=== PATIENT | male | born 1965 | race Caucasian/White ===

== ENCOUNTER 2020-04-08 11:21 | Outpatient (REF) | payer OTHER, SELFPAY ==
[2020-04-08 12:53] LABS: Blood Urea Nitrogen 17 mg/dL (9-16); Estimated Glomerular Filt Rate > 60
== END 2020-04-08 11:22 | disposition home or self-care (01) ==
LOC: HO.LAB 11:21
PROVIDERS: PCP Psychiatry & Neurology Neurology; Visit Provider Psychiatry & Neurology Neurology
DX: G40.209 Localization-related (focal) (partial) symptomatic epilepsy and epileptic syndromes with complex partial seizures, not intractable, without status epilepticus (principal)
CPT/HCPCS: 82565; 84520

== ENCOUNTER 2020-04-23 14:19 | Outpatient (REF) | payer OTHER, SELFPAY ==
--- NOTE | 2020-04-23 14:24 | CT_ITS ---
EXAMINATION: CT ANGIOGRAM BRAIN, HEAD CLINICAL INFORMATION: Partial seizure disorder. COMPARISON: Brain MRI 07/02/2019. TECHNIQUE: Test bolus sequences followed by intravenous administration 75 mL of Omnipaque 350 intravenous contrast. Helical imaging was performed in the axial plane from the skull base to the vertex. Delayed postcontrast imaging of the head was also performed. The data was processed at the production technologist workstation for generation of MIP sequences. Three-dimensional volume rendered reformatted images were also generated at an offline 3-D workstation. This CT examination was performed using dose optimization techniques as appropriate, variously including the following: *Automated exposure control *Adjustment of mA and/or kV according to patient size (this includes techniques or standardized protocols for targeted exams where dose is matched to indication/reason for exam; i.e. extremities or head) *Use of iterative reconstruction technique DLP: 2262 mGy-cm FINDINGS: There are scattered nonspecific foci of hypoattenuation throughout the periventricular white matter that coincide with the findings demonstrated on the brain MRI from 07/02/2019. Romo-white matter differentiation is otherwise preserved and there is no evidence of acute territorial infarct. There is no acute intracranial hemorrhage. Postcontrast images reveal no abnormal mass or enhancement within the intracranial compartment. No abnormal extra-axial collection. No intracranial mass effect or midline shift. Lateral and third ventricles are normal. No hydrocephalus. The calvarium and skull base are intact. Mastoid air cells and middle ear cavities are well aerated. There are a few small retention cysts within the alveolar recess of left maxillary sinus. Otherwise no active paranasal sinus disease. Globes and orbits are symmetric. Intracranial internal carotid arteries are patent. Intradural vertebral artery segments and basilar artery are patent. Anterior, middle, and posterior cerebral artery complexes are normal. No high-grade stenosis or proximal occlusion is visualized within the intracranial vessels. No early venous enhancement is demonstrated to suggest the presence of arteriovenous shunting. No evidence of aneurysm or high flow vascular malformation. CT/CT angio head IMPRESSION: Unremarkable examination. Specifically no high-grade stenosis or proximal occlusion is visualized within the intracranial vessels. No evidence of aneurysm or high flow vascular malformation. There are scattered nonspecific findings within the supratentorial white matter that coincide with the prominent perivascular spaces demonstrated on the brain MRI from 07/02/2019.
[2020-04-23] MEDS: iohexoL 350 MG/ML 100 ML INFUS..BTL IV (15:13)
== END 2020-04-23 14:20 | disposition home or self-care (01) ==
LOC: HO.CT 14:19
PROVIDERS: PCP Nurse Practitioner Adult Health; Visit Provider Psychiatry & Neurology Neurology
DX: G40.209 Localization-related (focal) (partial) symptomatic epilepsy and epileptic syndromes with complex partial seizures, not intractable, without status epilepticus (principal)
CPT/HCPCS: 70496; Q9967

== ENCOUNTER 2023-10-03 08:32 | Outpatient (AMB) | payer OTHER, SELFPAY ==
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
[2023-10-03 09:06] VITALS: BP 134/82; PULSE 76; O2SAT 96; BMI 28.2
== END 2023-10-03 10:48 | disposition home or self-care (01) ==
PROVIDERS: PCP Nurse Practitioner Adult Health; Visit Provider Nurse Practitioner Family
DX: G40.A09 Absence epileptic syndrome, not intractable, without status epilepticus (principal); R90.82 White matter disease, unspecified; R41.3 Other amnesia; G47.33 Obstructive sleep apnea (adult) (pediatric); Z96.82 Presence of neurostimulator
CPT/HCPCS: 99204

== ENCOUNTER → 2023-10-03 08:32 | Outpatient (BNVA) | payer OTHER, SELFPAY | PROVIDERS: PCP Nurse Practitioner Adult Health; Visit Provider Nurse Practitioner Family | DX: G40.A09 Absence epileptic syndrome, not intractable, without status epilepticus (principal); R90.82 White matter disease, unspecified; R41.3 Other amnesia; G47.33 Obstructive sleep apnea (adult) (pediatric); Z79.899 Other long term (current) drug therapy; Z96.82 Presence of neurostimulator | CPT/HCPCS: 99202 ==

== ENCOUNTER 2023-11-23 12:34 | Outpatient (REF) | payer OTHER, SELFPAY ==
--- NOTE | 2023-11-23 13:05 | EEG_ITS ---
This is a 16-channel EEG with an EKG lead. The patient is reported awake during the tracing. Background EEG rhythm is 8 to 10 hertz, 5 to 20 microvolt posteriorly and lower amplitude fast anteriorly. The patient transitioned in and out of drowsiness. Photic stimulation does not produce any significant driving. Hyperventilation is not performed. Cardiac lead does not reveal any significant abnormality. No sharp wave spikes or paroxysmal tendency noted. IMPRESSION: No significant abnormality noted on this EEG. MD EL Lloyd/RUBEN / [id number]
== END 2023-11-23 12:35 | disposition home or self-care (01) ==
LOC: HO.NEURO 12:34
PROVIDERS: PCP Internal Medicine; Visit Provider Nurse Practitioner Family
DX: G40.A09 Absence epileptic syndrome, not intractable, without status epilepticus (principal)
CPT/HCPCS: 95816

== ENCOUNTER 2023-12-01 09:22 | Outpatient (REF) | payer OTHER, SELFPAY ==
--- NOTE | ~2023-12-01 | MR_ITS ---
EXAMINATION: MR BRAIN WITHOUT CONTRAST CLINICAL INFORMATION: Absence epileptic syndrome COMPARISON: CT head from 04/23/2020. Brain MRI from 07/02/2019. TECHNIQUE: MRI of the brain was obtained using routine sequences without contrast. FINDINGS: No focal restricted diffusion is demonstrated to suggest acute or subacute cerebral ischemia. No evidence of acute or chronic hemorrhagic products on heme-sensitive imaging. Similar to prior exam, there extensive prominent perivascular spaces throughout the deep white matter of the bilateral cerebral hemispheres with moderate surrounding T2 FLAIR hyperintensity. Additional scattered periventricular, deep white matter, and brainstem T2 FLAIR hyperintensities most commonly seen with [id number] underlying microangiopathy. Proportional prominence of the ventricles and sulcal spaces without evidence of obstructive hydrocephalus. No abnormal mass effect. No midline shift. The hippocampi are symmetric in size, contour, and signal intensity. The temporal horns appear symmetric. Normal appearance of the pituitary gland. Normal positioning of the cerebellar tonsils. Normal arterial and venous vascular flow voids are present. Normal, homogeneous marrow signal. Mild mucosal thickening of the paranasal sinuses. Mild rightward nasal septal deviation. No signal abnormalities within the mastoids. MR/MR head/brain wo con IMPRESSION: 1. No acute intracranial abnormalities. 2. Similar to prior exam, there are extensive prominent perivascular spaces throughout the deep white matter of the bilateral cerebral hemispheres with moderate surrounding T2 FLAIR hyperintensity. Additional scattered white matter changes most commonly seen with [id number] underlying microangiopathy. 3. No additional MRI abnormalities to explain the patient's symptoms. Electronically signed by: Andrea Quigley DO 12/22/2023 09:29 AM EDT
== END 2023-12-01 09:23 | disposition home or self-care (01) ==
LOC: HO.MRI 09:22
PROVIDERS: PCP Internal Medicine; Visit Provider Nurse Practitioner Family
DX: G40.A09 Absence epileptic syndrome, not intractable, without status epilepticus (principal); R90.82 White matter disease, unspecified; R41.3 Other amnesia
CPT/HCPCS: 70551

== ENCOUNTER 2024-02-22 07:20 | Outpatient (AMB) | payer OTHER, SELFPAY ==
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
[2024-02-22 07:31] VITALS: BP 160/100; PULSE 84; O2SAT 99; BMI 28.3
== END 2024-02-22 08:36 | disposition home or self-care (01) ==
LOC: HO.HSMS 07:20
PROVIDERS: PCP Internal Medicine; Visit Provider Nurse Practitioner Family
DX: G40.A09 Absence epileptic syndrome, not intractable, without status epilepticus (principal); G47.33 Obstructive sleep apnea (adult) (pediatric); Z96.82 Presence of neurostimulator; R20.2 Paresthesia of skin; R90.82 White matter disease, unspecified; R41.3 Other amnesia
CPT/HCPCS: 99214

== ENCOUNTER → 2024-02-22 07:20 | Outpatient (BNVA) | payer OTHER, SELFPAY | PROVIDERS: PCP Internal Medicine; Visit Provider Nurse Practitioner Family | DX: G47.33 Obstructive sleep apnea (adult) (pediatric) (principal); G40.A09 Absence epileptic syndrome, not intractable, without status epilepticus; R20.2 Paresthesia of skin; R90.82 White matter disease, unspecified; R41.3 Other amnesia; Z96.82 Presence of neurostimulator | CPT/HCPCS: 99212 ==

== ENCOUNTER 2024-04-04 13:35 | Outpatient (REF) | payer OTHER, SELFPAY ==
--- NOTE | 2024-04-04 13:38 | EMG_ITS ---
Chief complaint: Right hand worse than leg numbness. Neck pain. History of diabetes. Denies symptoms in the left side. Reason for referral: Evaluate for neuropathy Referred by: Sophy Dupont NP Procedure done: Right upper and lower extremity NCS/EMG, some comparison to left lower done Precautions and/or limitations: None The limb temperature was monitored continuously and remained between 32-36 degrees C during the performance of the NCS. Nerve Conduction Studies Anti Sensory Summary Table ?Stim Site NR Onset (ms) Norm Onset (ms) Peak (ms) Norm Peak (ms) O-P Amp (?V) Norm O-P Amp Site1 Site2 Delta-0 (ms) Dist (cm) Robert (m/s) Norm Robert (m/s) Right Median Anti Sensory (2nd Digit) Wrist ? 2.1 3.3 <3.6 4.6 >10 Wrist 2nd Digit 2.1 14.0 67 Left Sural Anti Sensory (Lat Mall) Calf ? 1.8 3.0 <4.0 4.3 >5.0 Calf Lat Mall 1.8 14.0 78 Right Sural Anti Sensory (Lat Mall) Calf ? 2.8 3.6 <4.0 4.3 >5.0 Calf Lat Mall 2.8 14.0 50 Right Ulnar Anti Sensory (5th Digit) Wrist ? 2.6 3.3 <3.7 16.5 >15.0 Wrist 5th Digit 2.6 14.0 54 Motor Summary Table ?Stim Site NR Onset (ms) Norm Onset (ms) O-P Amp (mV) Norm O-P Amp iAmp (mV) Amp (1st) (%) Site1 Site2 Delta-0 (ms) Dist (cm) Robert (m/s) Norm Robert (m/s) Right Median Motor (Abd Poll Brev) Wrist ? 4.2 <3.9 5.8 >4.5 7.0 100.0 Elbow Wrist 4.6 22.0 48 >45 Elbow ? 8.8 4.7 5.8 81.0 Right Peroneal Motor (Ext Dig Brev) Ankle ? 4.3 <4.0 2.0 >2.5 2.6 100.0 Ankle Ext Dig Brev 4.3 0.0 B Fib ? 12.6 1.4 1.8 70.0 B Fib Ankle 8.3 34.0 41 >40 Poplt ? 14.0 1.3 1.7 65.0 Poplt B Fib 1.4 6.0 43 >40 Right Tibial Motor (Abd Armenta Brev) Ankle ? 3.6 <5 12.1 >2.5 14.9 100.0 Ankle Abd Armenta Brev 3.6 0.0 Knee ? 13.9 5.8 7.1 47.9 Knee Ankle 10.3 41.0 40 >40 Run #2 (Abd Dig Minimi) Wrist ? 2.8 <3.0 6.7 >5 8.1 100.0 B Elbow Wrist 4.2 20.0 48 >45 B Elbow ? 7.0 5.7 7.0 85.1 A Elbow B Elbow 1.8 10.0 56 >45 A Elbow ? 8.8 6.8 8.3 101.5 EMG ?Side Muscle Nerve Root Ins Act Fibs Psw Amp Dur Poly Recrt Int Pat Comment Right 1stDorInt Ulnar C8-T1 Incr 1+ 1+ Nml Nml 0 Nml Complete Right FlexCarRad Median C6-7 Nml Nml Nml Nml Nml 0 Nml Complete Right Biceps Musculocut C5-6 Nml Nml Nml Nml Nml 0 Nml Complete Right Triceps Radial C6-7-8 Nml Nml Nml Nml Nml 0 Nml Complete Right Deltoid Axillary C5-6 Nml Nml Nml Nml Nml 0 Nml Complete Right AbdHallucis MedPlantar S1-2 Incr 1+ 1+ Nml Nml 0 Nml Complete Right AntTibialis Dp Br Peron L4-5 Nml Nml Nml Nml Nml 0 Nml Complete Right PostTibialis Tibial L5, S1 Nml Nml Nml Nml Nml 0 Nml Complete Right MedGastroc Tibial S1-2 Nml Nml Nml Nml Nml 0 Nml Complete Right VastusMed Femoral L2-4 Nml Nml Nml Nml Nml 0 Nml Complete Left AbdHallucis MedPlantar S1-2 Nml Nml Nml Nml Nml 0 Nml Complete Paraspinal EMG ?Side Muscle Nerve Root Ins Act Fibs Psw Comment Right Cervical Upper Rami Nml Nml Nml Right Cervical Mid Rami Nml Nml Nml Right Cervical Lower Rami Nml Nml Nml Right Lumbar Upper Rami Nml Nml Nml Right Lumbar Mid Rami Nml Nml Nml Right Lumbar Lower Rami Nml Nml Nml FINDINGS: Right peroneal nerve showed prolonged distal latency, small amplitude and normal conduction velocity. Bilateral sural nerves showed small amplitudes. Right median motor nerve showed prolonged distal latency, normal amplitude and normal conduction velocity. Right median sensory nerve showed small amplitude. All other nerves tested were within normal. Concentric needle EMG was performed in selected muscles of the right upper and bilateral lower extremities, cervical and lumbar paraspinals. Study revealed signs of electric abnormalities as shown in the table above. Right AH showed increased insertional activity, PSWs and fibrillations. Right FDI showed increased insertional activity, PSWs and fibrillations. No denervation seen on lumbar or cervical paraspinals. IMPRESSION: 1. This is an abnormal study. 2. There are electrodiagnostic findings suggestive for sensorimotor peripheral neuropathy, primarily axonal. 3. There is electrodiagnostic evidence for right moderate-severe median neuropathy at the wrist, consistent with Carpal Tunnel Syndrome. 4. There is no electrodiagnostic evidence for ulnar neuropathy, cervical radiculopathy, or lumbar radiculopathy CLINICAL COMMENT: Further clinical correlation recommended. Thank you for your kind referral. Domenica Reynolds MD, COLLIN Board Certified, [place] Board of Physical Medicine and Rehabilitation (ABPMR) Board Certified, [place] Board of Electrodiagnostic Medicine (ABEM) CODIN [id number] x 2 [phone] x 1 MTDD
--- OUTSIDE RECORDS SUMMARY | 2024-04-04 13:39 | XMS_ITS | Data Portability ---
Author Organization [place] - [facility], Allergy Address [address] [place] [id number] Assessment Encounter Date Assessment Date Assessment LastModified by Organization Details LastModified Time 02/28/2024 02/28/2024 1. Cerumen impaction, bilateral Resolved s/p cerumen removal. Normal otomicroscopic ear exam. PLAN: - Follow-up prn - Advised to abstain from qtip use 2. Prior tympanic membrane perforation Resolved and healed today. Follow-up as needed [email or web address] Not available 02/28/2024 16:24:18 Plan of Treatment Reminders Order Date Submit Date Provider Last Modified By Organization Details Last Modified Time Details Appointments None record ed. Lab None record ed. Referral None record ed. Procedures None record ed. Surgeries None record ed. Imaging None record ed. Medication Orders None record ed. Patient TargetsNo targets recorded. Patient InstructionsNo instructions recorded. Reason for Referral None Reported. Results Created Date Observation Date Name Description Value Unit Range Abnormal Flag Note LastModifiedBy Organization Detail LastModifiedTime 02/29/20 24 audio gram No observ ation record ed. BARCODE Not Available 2023 10:43:30 Result Notes None recorded. Problems Name Problem SNOMED Code Status Onset Date Resolution Date Notes Provider Name and Address Organization Details Recorded Time Obstructi ve sleep apnea syndrome 32994795 Active 2017 Obstructi ve sleep apnea (adult) (pediatri c); Note: Date Diagnosed : 8 5:11 PM (G47.33) Not Available [facility] 4 03:31:36 Body mass index 25-29 - overweigh t 149373366 Active 2018 Body mass index (BMI) 28.0-28.9 , adult; Note: Date Diagnosed : 9 3:09 PM (Z68.28) Not Available [facility] 4 03:31:36 Sensorine ural hearing loss of bilateral ears 907226189 Active 2023 TRISH EDDY [address] [facility] [place] [address], [facility] [place], [address] , [facility] - [facility] 4 15:29:39 Impacted cerumen of bilateral ears 72614285308 Active 2023 JAISON HINDS MD [address] [facility] [place] [address], [place], [address] , [facility] - [facility] 4 16:24:22 Central perforati on of left tympanic membrane 13430662847 Active 2023 JAISON HINDS MD [address] [place] [address],[place] [address], [facility] [place], [address] , [facility] - [facility] 4 16:24:35 Problem Notes None recorded. Procedures Surgical History Date Name Laterality Status Provider Name and Address Organization Details Recorded Time 02/28/20 24 Cerumen removal with microscope bilateral completed JAISON HINDS MD [address] [place] [address],[place] [address], [place], [address], [facility] 02/28/2024 16:23:57 02/28/20 24 Tympanometry (98642) completed TRISH EDDY [address] [facility],[place] [address], [place], [address], [facility] 02/28/2024 15:29:25 Imaging Results Imaging Date Name Status LastModified by Organiz ation Details LastModified Time 02/29/2024 audiogram completed BARCODE Information no t available 02/29/2024 10:43:30 Procedure Notes None recorded. Medical Equipment None Reported. Allergies No known drug allergies Medications Name Sig Start Date Stop Date Status Note LastModified by Organization Details LastModified Time atorvasta tin 40 mg tablet 02/27 completed Medicatio n ID: [id number] Br and Name: atorvasta tin Send Method: E-Prescri bed Subs Allowed: subs OK Medica tionGener icName: atorvasta tin Not Available Not Available Not Available metformin 500 mg tablet 02/27 completed Not Available Not Available Not Available atorvasta tin 80 mg tablet 02/27 completed Not Available Not Available Not Available divalproe x 250 mg tablet,de layed release 02/27 completed Not Available Not Available Not Available lisinopri l 20 mg-hydroc hlorothia zide 12.5 mg tablet TAKE 1 TABLET BY MOUTH EVERY DAY FOR 30 DAYS 02/27 completed Not Available Not Available Not Available Keflex 500 mg capsule 02/27 completed Medicatio n ID: [id number] Pr escribed By Name: Jess Mora Name: Keflex Se nd Method: E-Prescri bed Subs Allowed: subs OK Specia l Instructi on: 1 pill PO QID x 7 days Medi cationGen ericName: Keflex Not Available Not Available Not Available ondansetr on HCl 4 mg tablet 02/27 completed Not Available Not Available Not Available clopidogr el 75 mg tablet 02/27 completed Not Available Not Available Not Available amlodipin e 5 mg tablet TAKE 1 TABLET BY MOUTH EVERY DAY FOR 90 DAYS 02/27 completed Not Available Not Available Not Available divalproe x 500 mg tablet,de layed release active Not Available Not Available Not Available aspirin 81 mg tablet,de layed release active Not Available Not Available Not Available ofloxacin 0.3 % ear drops 02/27 completed Not Available Not Available Not Available metformin 1,000 mg tablet active Not Available Not Available Not Available sertralin e 25 mg tablet 02/27 completed Not Available Not Available Not Available lisinopri l 20 mg-hydroc hlorothia zide 25 mg tablet 02/27 completed Not Available Not Available Not Available lisinopri l 5 mg tablet 2023 active Medicatio n ID: [id number] Br and Name: lisinopri l Send Method: E-Prescri bed Subs Allowed: subs OK Medica tionGener icName: lisinopri l Not Available Not Available Not Available fluoxetin e 20 mg capsule 02/27 completed Medicatio n ID: [id number] Br and Name: fluoxetin e Send Method: E-Prescri bed Subs Allowed: subs OK Medica tionGener icName: fluoxetin e Not Available Not Available Not Available sertralin e 50 mg tablet TAKE 1 TABLET BY MOUTH EVERY DAY WITH 25 MG 02/27 completed Not Available Not Available Not Available amoxicill in 875 mg-potass ium clavulana te 125 mg tablet 02/27 completed Not Available Not Available Not Available cholecalc iferol (vitamin D3) 25 mcg (1,000 unit) capsule active Not Available Not Available Not Available topiramat e 50 mg tablet active Not Available Not Available Not Available metformin ER 500 mg tablet,ex tended release 24hr (osmotic) 02/27 completed Medicatio n ID: [id number] Br and Name: metformin Send Method: E-Prescri bed Subs Allowed: subs OK Medica tionGener icName: metformin Not Available Not Available Not Available cholecalc iferol (vitamin D3) 1,250 mcg (50,000 unit) capsule 02/27 completed Not Available Not Available Not Available Invokana 2017 active Medicatio n ID: [id number] Br and Name: invokana Send Method: E-Prescri bed Subs Allowed: subs OK Medica tionGener icName: invokana Not Available Not Available Not Available Bydureon BCise 2 mg/0.85 mL subcutane ous auto-inje ctor 02/27 completed Medicatio n ID: [id number] Br and Name: Bynorisreon BCise Sen d Method: E-Prescri bed Subs Allowed: subs OK Medica tionGener icName: Bydureon BCise Not Available Not Available Not Available Trulicity 3 mg/0.5 mL subcutane ous pen injector 02/27 completed Not Available Not Available Not Available Trulicity 4.5 mg/0.5 mL subcutane ous pen injector active Not Available Not Available Not Available Vitals None Recorded Social History None recorded. Functional Status None recorded. Mental Status None recorded. Family History Nothing Reported. Medical History Condition Response Diabetes Y Migraines Y Anxiety Y Stroke Y Hypertension Y Depression Y Past Encounters Encounter ID Performer Location Encounter Start Date Encounter Closed Date Diagnosis/Indication Diagnosis SNOMED-CT Code Diagnosis ICD10 Code [id number] JAISON HIDNS MD [facility] [address] [phone] 02/28/2024 14:53:35 02/28/2024 15:46:57 Sensorineural hearing loss of bilateral ears 972561405 H90.3 Impacted c erumen of bilateral ears 1323175427 137568 H61.23 Central pe rforation of left tympanic membrane 9782287642 438649 H72.02 Health Concerns Section Related Observation LastModified by Organization Detai ls LastModified Time None Recorded Concern Status LastModified by Organization Details LastModified Time None Recorded Advance Directives Directive None Recorded Payers None recorded. Notes Date Note Type Note Provider Name and Address Organization Details Recorded Time 02/28/2024 text/html This is a 58-year-old gentleman who presents after a left eardrum perforation, which occurred April 2023 secondary to Q-tip use. He was seen in urgent care and was told he had a tympanic membrane rupture. Since that time he denies any symptoms. He denies any change in hearing, otorrhea, dizziness, vertigo, otalgia, otologic infections, otologic surgeries. Audiogram was reviewed and interpreted independently today, which shows normal tympanometry. JAISON HINDS MD [address] [place] [address], [phone], [facility] - [facility] 02/28/2024 16:25:09
--- OUTSIDE RECORDS SUMMARY | 2024-04-04 13:39 | XMS_ITS | Continuity of Care Document ---
Author Organization [place] - [facility], [facility] Address [address] [place] [address] Assessment Encounter Date Assessment Date Assessment LastModified [...] Recorded Time Obstructi ve sleep apnea syndrome [id number] Active 2017 Obstructi ve sleep apnea (adult) (pediatri c); Note: Date Diagnosed : 8 5:11 PM (G47.33) Not Available [facility] 4 03:31:36 Body mass index 25-29 - overweigh t [id number] Active 2018 Body mass index (BMI) 28.0-28.9 , adult; Note: Date Diagnosed : 9 3:09 PM (Z68.28) Not Available [facility] 4 03:31:36 Sensorine ural hearing loss of bilateral ears 080889877 Active 2023 TRISH EDDY [address] [facility],[place] [address], [facility] [place], [address] , [facility] - [facility] 4 15:29:39 Impacted cerumen of bilateral ears [id number] 11179 Active 2023 JAISON HINDS MD [address] [place] [address],[place] [address], [facility] [place], [address] , [facility] - [facility] 4 16:24:22 Central perforati on of left tympanic membrane [id number] Active 2023 JAISON HINDS MD [address] [place] [address],[place] [address], [facility] [place], [address] , [facility] 4 16:24:35 Problem Notes None recorded. Procedures Surgical History Date Name Laterality Status Provider Name and Address Organization Details Recorded Time 02/28/20 24 Cerumen removal with microscope bilateral completed JAISON HINDS MD [address] [place] [address],[place] [address], [place], [address], [facility] 02/28/2024 16:23:57 02/28/20 24 Tympanometry (14531) completed TRISH EDDY [address] [place] [address],[address], [address], [facility] 02/28/2024 15:29:25 Imaging Results None recorded. Procedure Notes None recorded. Medical Equipment None Reported. Allergies No known drug allergies Medications Name Sig Start Date Stop Date Status Note LastModified by Organization Details LastModified Time atorvasta tin 40 mg tablet 02/27 completed Medicatio n ID: [id number] Br and Name: atorvasta tin Send Method: [...] mg capsule 02/27 completed Medicatio n ID: [id number] Pr escribed By Name: Jess Mora Name: Keflex Se nd Method: E-Prescri bed Subs Allowed: subs OK Specia l Instructi on: 1 pill PO QID x 7 days [facility] cationGen ericName: Keflex Not Available Not Available [...] mg tablet 2023 active Medicatio n ID: [id number] Br and Name: lisinopri l Send Method: E-Prescri bed Subs Allowed: subs OK Medica tionGener icName: lisinopri l Not Available Not Available Not Available fluoxetin e 20 mg capsule 02/27 completed Medicatio n ID: [id number] Br and Name: fluoxetin e Send Method: [...] 24hr (osmotic) 02/27 completed Medicatio n ID: [id number] Br and Name: metformin Send Method: E-Prescri bed Subs Allowed: subs OK Medica tionGener icName: metformin Not Available Not Available Not Available cholecalc iferol (vitamin D3) 1,250 mcg (50,000 unit) capsule 02/27 completed Not Available Not Available Not Available Invokana 2017 active Medicatio n ID: [id number] Br and Name: invokana Send Method: E-Prescri bed Subs Allowed: subs OK Medica tionGener icName: invokana Not Available Not Available Not Available Bydureon BCise 2 mg/0.85 mL subcutane ous auto-inje ctor 02/27 completed Medicatio n ID: [id number] Br and Name: Lenora BCise Sen d Method: E-Prescri bed Subs [...] Diagnosis/Indication Diagnosis SNOMED-CT Code Diagnosis ICD10 Code 54114 JAISON HINDS MD [facility] [address] [place] [address] 02/28/2024 14:53:35 02/28/2024 15:46:57 Sensorineural hearing loss of bilateral ears [id number] H90.3 Impacted c erumen of bilateral ears [id number] 286505 H61.23 Central pe rforation of left tympanic membrane [id number] 246691 H72.02 Health Concerns Section Related Observation LastModified by Organization Detai ls LastModified Time None Recorded Concern Status LastModified by Organization Details LastModified Time None Recorded Payers None recorded. Notes Date [...] which shows normal tympanometry. JAISON HINDS MD [address] [place] [address], [place], [address], [facility] - [facility] 02/28/2024 16:25:09
== END 2024-04-04 13:36 | disposition home or self-care (01) ==
LOC: HO.NEURO 13:35
PROVIDERS: PCP Internal Medicine; Visit Provider Nurse Practitioner Family
DX: R20.2 Paresthesia of skin (principal); Z96.82 Presence of neurostimulator
CPT/HCPCS: 95885; 95886; 95910

== ENCOUNTER → 2024-04-04 13:38 | Outpatient (BNV) | payer OTHER, SELFPAY | PROVIDERS: PCP Internal Medicine; Visit Provider Physical Medicine & Rehabilitation | DX: G62.9 Polyneuropathy, unspecified (principal); G56.01 Carpal tunnel syndrome, right upper limb | CPT/HCPCS: 95885; 95886; 95910 ==

== ENCOUNTER 2024-04-22 09:56 | Outpatient (AMB) | payer OTHER, SELFPAY ==
[2024-04-22 09:59] VITALS: BP 120/70; PULSE 107; O2SAT 90; BMI 27.2
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
--- OUTSIDE RECORDS SUMMARY | 2024-04-22 10:48 | XMS_ITS | Data Portability ---
Author Organization [place] - [facility], Allergy Address [address] [place] [id number] Assessment Encounter Date Assessment Date Assessment LastModified [...] Recorded Time Obstructi ve sleep apnea syndrome [id number] Active 2017 Obstructi ve sleep apnea (adult) (pediatri c); Note: Date Diagnosed : 8 5:11 PM (G47.33) Not Available [facility] 4 03:31:36 Body mass index 25-29 - overweigh t 169272743 Active 2018 Body mass index (BMI) 28.0-28.9 , adult; Note: Date Diagnosed : 9 3:09 PM (Z68.28) Not Available [facility] 4 03:31:36 Sensorine ural hearing loss of bilateral ears 633008668 Active 2023 TRISH EDDY [address] [facility] [address] [place] [address], [facility] [place], [address] , [facility] - [facility] 4 15:29:39 Impacted cerumen of bilateral ears 10675709325 Active 2023 JAISON HINDS MD [address] [facility] [place] [address], [facility] [place], [address] , [facility] - [facility] 4 16:24:22 Central perforati on of left tympanic membrane 87872670972 Active 2023 JAISON HINDS MD [address] [place] [address],[place] [address], [facility] [place], [address] , [facility] - [facility] 4 16:24:35 Problem Notes None recorded. Procedures Surgical History Date Name Laterality Status Provider Name and Address Organization Details Recorded Time 02/28/20 24 Cerumen removal with microscope bilateral completed JAISON HINDS MD [address] [place] [address],[place] [address], [place], [address], [facility] 02/28/2024 16:23:57 02/28/20 24 Tympanometry (04345) completed TRISH EDDY [address] [facility],[place] [address], [place], [address], [facility] 02/28/2024 15:29:25 Imaging Results Imaging Date Name Status LastModified by Organiz ation Details LastModified Time 02/29/2024 audiogram completed BAR[facility] Information no t available 02/29/2024 10:43:30 Procedure Notes None recorded. Medical Equipment None Reported. Allergies No known drug allergies Medications Name Sig Start Date Stop Date Status Note LastModified by Organization Details LastModified Time atorvasta tin 40 mg tablet 02/27 completed Medicatio n ID: [id number] Br and Name: atorvasta tin Send Method: [...] mg capsule 02/27 completed Medicatio n ID: [id number] Pr escribed By Name: Jess Mora Name: [...] mg tablet 2023 active Medicatio n ID: [id number] Br and Name: lisinopri l Send Method: E-Prescri bed Subs Allowed: subs OK Medica tionGener icName: lisinopri l Not Available Not Available Not Available fluoxetin e 20 mg capsule 02/27 completed Medicatio n ID: [id number] Br and Name: fluoxetin e Send Method: [...] 24hr (osmotic) 02/27 completed Medicatio n ID: [id number] Br and Name: metformin Send Method: E-Prescri bed Subs Allowed: subs OK Medica tionGener icName: metformin Not Available Not Available Not Available cholecalc iferol (vitamin D3) 1,250 mcg (50,000 unit) capsule 02/27 completed Not Available Not Available Not Available Invokana 2017 active Medicatio n ID: [id number] Br and Name: invokana Send Method: E-Prescri bed Subs Allowed: subs [place] Medica tionGener icName: invokana Not Available Not Available Not Available Bydureon BCise 2 mg/0.85 mL subcutane ous auto-inje ctor 02/27 completed Medicatio n ID: [id number] Br and Name: Bynorisreon BCise Sen d [...] History Condition Response Diabetes Y Migraines Y Stroke Y Hypertension Y Anxiety Y Depression Y Past Encounters Encounter ID Performer Location Encounter Start Date Encounter Closed Date Diagnosis/Indication Diagnosis SNOMED-CT Code Diagnosis ICD10 Code Diagnosis Note [id number] JAISON HINDS MD [facility] [address] [address] 02/28/2024 14:53:35 02/28/2024 15:46:57 Sensorineural hearing loss of bilateral ears 033195302 H90.3 Previously found SNHL. Denied testing today. Tympanomet ry: Right: Type {{A* B B with large ECV C}} Left: {{A* B B with large ECV C}} Impacted c erumen of bilateral ears [id number] 320189 H61.23 Central pe rforation of left tympanic membrane [id number] 522060 H72.02 Health Concerns Section Related Observation LastModified [...] which shows normal tympanometry. JAISON HINDS MD [address] [place] [address], [phone], [facility] - [facility] 02/28/2024 16:25:09
--- OUTSIDE RECORDS SUMMARY | 2024-04-22 10:48 | XMS_ITS | Continuity of Care Document ---
Author Organization [facility] ter Address [address] [place] [address]- Care Team Providers Care Japanese Interpreter Name Role Phone Bernard SOSA, Eunice Primary Care Physician [phone] [id number] Date(s): 04/12/24 - 04/19/24 [facility] [address] [place] [address]- Encounter Diagnosis Dysphagia(Final) - 04/10/24 Discharge Disposition: A-D/C Home Attending Physician: Deepak Rodrigues MD Admitting Physician: Marion Richey MD Referring Physician: Not on Staff, Referring MD Encounter Type: Disch IP Allergies, Adverse Reactions, Alerts Substance Criticality Severity Reaction Reaction Severity Status Lactose Diarrhea Active Medications amLODIPine 5 mg oral tablet 5 mg, Tablet, Nasogastric Tube, 04/19/24 9:00:00 AM EST Start Date: 04/19/24 Stop Date: 04/19/24 Status: Completed Repeat number: 1 amLODIPine 5 mg oral tablet 5 mg, G Tube, Daily, # 30 tablet, Refills 0, Tot. Refills 0, Maintenance, 04/19/24 2:06:00 PM EST, Route to Pharmacy Electronically, [id number], Partial fill upon patient request if the prescription is for a schedule II opioid drug., 173, cm, 04/18/24 14:35:00 EST, Height, 85, kg, 04/12/24 18:28:00 EST, Dry Weight Start Date: 04/19/24 Stop Date: 05/19/24 Status: Ordered Quantity: 30.0 Unit: tablet Repeat number: 1 aspirin 81 mg oral tablet, chewable = 81 mg, G Tube, Daily, # 30 tablet, 0 Refills, Maintenance, 04/19/24 2:07:00 PM EST, Chew Tablet, [facility], Partial fill upon patient request if the prescription is for a schedule II opioid drug., 173, cm, 04/18/24 14:35:00 EST, Height, 85, kg, 04/12/24 18:28:00 EST, Dry Weight Start Date: 04/19/24 Stop Date: 05/19/24 Status: Ordered Quantity: 30.0 Unit: tablet Repeat number: 1 atorvastatin 80 mg oral tablet 1 tablet = 80 mg, By Mouth, Daily, # 90 tablet, 0 Refills, Maintenance, 05/28/23 8:54:00 PM EST, Tablet, Partial fill upon patient request if the prescription is for a schedule II opioid drug. Start Date: 05/28/23 Status: Ordered Quantity: 90.0 Unit: tablet Repeat number: 1 divalproex sodium 500 mg oral enteric coated tablet 1 tablet = 500 mg, 2 times a day, Via G tube with food, # 270 tablet, 0 Refills, Maintenance, 04/11/24 4:36:00 AM EST, EC Tablet, Partial fill upon patient request if the prescription is for a schedule II opioid drug. Start Date: 04/11/24 Status: Ordered Quantity: 270.0 Unit: tablet Repeat number: 1 hydrochlorothiazide-lisinopril 12.5 mg-20 mg oral tablet 1 tablet, G Tube, Daily, # 30 tablet, 0 Refills, Maintenance, 05/28/23 8:54:00 PM EST, Tablet, Partial fill upon patient request if the prescription is for a schedule II opioid drug. Start Date: 05/28/23 Status: Ordered Quantity: 30.0 Unit: tablet Repeat number: 1 lisinopril 20 mg oral tablet 20 mg, Tablet, Nasogastric Tube, 04/19/24 9:00:00 AM EST Start Date: 04/19/24 Stop Date: 04/19/24 Status: Completed Repeat number: 1 metFORMIN 1000 mg oral tablet 1 tablet = 1,000 mg, G Tube, 2 times a day, # 180 tablet, 0 Refills, Maintenance, 04/11/24 4:37:00 AM EST, Tablet, Partial fill upon patient request if the prescription is for a schedule II opioid drug. Start Date: 04/11/24 Status: Ordered Quantity: 180.0 Unit: tablet Repeat number: 1 Plavix 75 mg oral tablet 75 mg, G Tube, Daily, # 30 tablet, Refills 0, Tot. Refills 0, Maintenance, 04/19/24 2:05:00 PM EST, Route to Pharmacy Electronically, [facility], Partial fill upon patient request if the prescription is for a schedule II opioid drug., 173, cm, 04/18/24 14:35:00 EST, Height, 85, kg, 04/12/24 18:28:00 EST, Dry Weight Start Date: 04/19/24 Stop Date: 05/19/24 Status: Ordered Quantity: 30.0 Unit: tablet Repeat number: 1 Senna 8.6 mg oral tablet 17.2 mg, 2, tablet, G Tube, Daily, PRN, for 7 days, # 14 tablet, Refills 0, Tot. Refills 0, Acute, as needed for constipation, 04/26/24 2:09:00 PM EST, 04/19/24 2:09:00 PM EST, Route to Pharmacy Electronically, [facility] Tablet, Partial fill upon patient request if the prescription is for a schedule II opioid drug., 173, cm, 04/18/24 14:35:00 EST, Height, 85, kg, 04/12/24 18:28:00 EST, Dry Weight Start Date: 04/19/24 Stop Date: 04/26/24 Status: Ordered Quantity: 14.0 Unit: tablet Repeat number: 1 topiramate 50 mg oral tablet 1 tablet = 50 mg, G Tube, Daily, # 180 tablet, 0 Refills, Maintenance, 04/11/24 4:36:00 AM EST, Tablet, Partial fill upon patient request if the prescription is for a schedule II opioid drug. Start Date: 04/11/24 Status: Ordered Quantity: 180.0 Unit: tablet Repeat number: 1 Trulicity Pen 1.5 mg/0.5 mL subcutaneous solution 0.5 mL = 1.5 mg, Subcutaneous Injection, Every week, on Monday, 0 Refills, Maintenance, 06/20/18 3:21:21 PM EST, Solution Start Date: 06/20/18 Status: Ordered Repeat number: 1 Problem List Condition Confirmation Course Effective Dates Status Health St atus Informant Anxiety Confirmed Active COVID-19 1 Confirmed 06/02/23 Active Depression Confirmed Active Diabetes Confirmed Active High cholesterol Confirmed Active Hypertension Confirmed Active EDIN (obstructive sleep apnea) Confirmed Active 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 Seizure disorder Confirmed Active Type 2 diabetes mellitus Confirmed Active 1Problem added by Discern Expert Results Radiology Reports * Exam Date Time Procedure Performing Provider Status 04/16/24 2:47 PM MRI Brain W/O Contrast Tania Davis ; Italo (Verified) Notes: (MRI Brain W/O Contrast) Reason For Exam: Slurred Speech and Dysphagia.;Other: RESULT: MRI Brain W/O Contrast MRI Brain W/O Contrast INDICATION / CLINICAL QUESTION: Reason: Other:; Slurred Speech and Dysphagia.; Clinical Question(s): Infarction; Slurred Speech and Dysphagia; Special Instructions: Patient has hypoglossal nerve stimulator- his card with the information sent to MRI-Per drill instructor Do, Riley the stimulator is MRI compatible.; Order Comment: Please see Reference Text for complete list of contraindications Infarction TECHNIQUE: MRI of the brain was performed without contrast utilizing sagittal T1, axial T2, axial FLAIR, axial SWAN, and axial DWI sequences. COMPARISON: CT head 04/11/2024. FINDINGS: BRAIN and EXTRA-AXIAL SPACES: There is focal diffusion restriction in the posterior lateral left medulla, with mild corresponding T2 prolongation. No other site of diffusion restriction is seen. There is no evidence of intracranial hemorrhage on susceptibility sensitive sequence. There is no mass effect, midline shift, or effacement of the basal cisterns. There is loss of the flow void of the left mid V4 segment (5:35), corresponding to focal occlusion seen on CTA. Remaining major flow voids are preserved. Mild to moderate scattered foci of T2 prolongation are seen in the periventricular, deep, and subcortical white matter as well as the nazia. Multiple oblong prominent perivascular spaces are noted in the deep white matter with suppression of signal on FLAIR. Ventricles, cisterns, and sulci are mildly prominent, consistent with volume loss, without hydrocephalus. No abnormal extra-axial fluid collections are seen. Meningeal surfaces are normal. The midline structures, including sella, corpus callosum, and craniocervical junction, are unremarkable. EXTRACRANIAL SOFT TISSUES: Orbits are unremarkable. There is mild scattered mucosal thickening in the paranasal sinuses, without fluid levels. Trace mastoid effusions are seen. BONES: Marrow signal is preserved. IMPRESSION: 1. 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 No mass effect or hemorrhage. 2. Mild to moderate T2/FLAIR hyperintense foci in the white matter, nonspecific but most commonly reflecting chronic small vessel disease, with multiple prominent prevascular spaces. WSN: [id number] Ordering Physician: Joy Patterson Dictated By: Kayla Alexander MD Dictated Date/Time: 04/16/24 3:19 pm Reviewed By: Kayla Alexander MD Signed By: Kayla Alexander MD Signed Date/Time: 04/16/24 3:19 pm Transcribed By: CSB Transcribed Date/Time: 04/16/24 3:14 pm * Exam Date Time Procedure Performing Provider Status 04/13/24 3:40 PM Chest Single Frontal View Marion Allen; Auth (Verified) Notes: (Chest Single Frontal View) Reason For Exam: Tube Placement RESULT: Chest Single Frontal View Chest Single Frontal View Reason: Tube Placement; Clinical Question(s): Tube Placement COMPARISON: 04/10/2024 FINDINGS: LINES AND TUBES: Enteric tube in good position. LUNGS AND PLEURA: Clear lungs. Normal pulmonary vascularity. No pleural effusion. No pneumothorax. HEART, MEDIASTINUM AND HARMONY: Heart is normal in size. Normal mediastinal and hilar contour. BONES AND SOFT TISSUES: No acute abnormality. IMPRESSION: No acute abnormality. WSN: [id number] Ordering Physician: Saundra Gomez Dictated By: Kuldip Atkinson MD Dictated Date/Time: 04/13/24 5:00 pm Reviewed By: Kuldip Atkinson MD Signed By: Kuldip Atkinson MD Signed Date/Time: 04/13/24 5:00 pm Transcribed By: MIGUEL Transcribed Date/Time: 04/13/24 4:59 pm * Exam Date Time Procedure Performing Provider Status 04/12/24 11:17 AM Modified Barium Swal low W/ Speech (Radio Onofre , Kylea; Auth (Verified) Notes: (Modified Barium Swallow W/ Speech (Radio) Reason For Exam: Dysphagia RESULT: Modified Barium Swallow W/ Speech (Radio Modified Barium Swallow WITH SPEECH PATHOLOGY CLINICAL INDICATION: Reason: Dysphagia; Clinical Question(s): Aspiration; Order Comment: Modified Barium Swallow W Speech (Radiology) Prep COMPARISON: None Technique: Lateral cine-videofluoroscopy was performed during the oral administration of various barium containing consistencies, as described below. Fluoroscopic imaging provided by Ron Hewitt PA-C. Pulsed fluoroscopy time: 1.4 minutes Dose Area Product (DAP): 67.9 uGy*m2 Findings: Applesauce and thin barium consistencies were tested. Severe vallecular and piriform residuals are seen with significant prominence of the cricopharyngeus and lack of UES opening contributing to these. Little to no epiglottic inversion is seen during deglutition. No laryngeal penetration is appreciated. IMPRESSION: Severe piriform and vallecular residuals contributed to by lack of UES opening and absent epiglottic inversion. Consider EGD follow-up for obstructing cricopharyngeal bar. For dietary concerns or recommendations, please refer to speech pathologist report. By undersigning and finalizing the report, the attending radiologist confirms he/she has personallyreviewed and interpreted the images and agrees with the description of the findings. I have personally reviewed the images and I agree with this report. WSN: [id number] Ordering Physician: Saundra Gomez Dictated By: Tom Begum Dictated Date/Time: 04/12/24 3:07 pm Reviewed By: Reuben Medrano MD Signed By: Reuben Medrano MD Signed Date/Time: 04/12/24 3:12 pm Transcribed By: MIGUEL Transcribed Date/Time: 04/12/24 11:09 am * Exam Date Time Procedure Performing Provider Status 04/11/24 8:[address] Head/Brain W/O Contrast Anamika Smith; Auth (Verified) Notes: (CT Head/Brain W/O Contrast) Reason For Exam: Stroke rule out, follow-up, cannot get MRI due to hypoglossal nerve stimulator;Other: RESULT: CT Head/Brain W/O Contrast CT Head/Brain W/O Contrast INDICATION: Stroke rule out, follow-up, cannot get MRI due to hypoglossal nerve stimulator; Clinical Question(s): Infarction; TECHNIQUE: Noncontrast head CT using axial technique and reconstructed in axial and coronal planes.Iterative reconstruction techniques are used to optimize dose and image quality. CTDIvol Head: 44.39 mGy, DLP Head: 799 mGy*cm. COMPARISON: Multiple priors, most recent from 04/10/2024. FINDINGS: Mannequin Refinisher view findings, lines and tubes: None. BRAIN AND EXTRA-AXIAL SPACES: No parenchymal hemorrhage, midline shift, or mass effect. Chronic small infarcts adjacent to the frontal horn of the right lateral ventricle and right parietal lobe. No acute infarct. Negative insular ribbon sign. Atherosclerotic vascular calcification of the carotid arteries but negative hyperdense vessel sign. Mild prominence of the ventricles and sulci consistent with parenchymal volume loss. Moderate low-density white matter changes. No subarachnoid hemorrhage. No subdural or epidural collection. CALVARIUM, SKULL BASE, AND SOFT TISSUES: No fractures or suspicious bony lesions. The mastoid air cells are clear. Mucosal thickening within the left maxillary sinus. Visualized orbits and globes are intact. The extracranial soft tissues are unremarkable. IMPRESSION: No acute intracranial pathology. Stable appearance of old right frontal and right parietal lobe infarcts and other chronic ischemic changes in white matter of both cerebral hemispheres consistent with microvascular disease. Inflammatory changes in the left maxillary sinus. I have personally reviewed the images and I agree with this report. WSN: [id number] Ordering Physician: Saulo Alexander Dictated By: Kuldeep Colbert MD Dictated Date/Time: 04/11/24 9:18 am Reviewed By: Cj Orozco MD Signed By: Cj Orozco MD Signed Date/Time: 04/11/24 9:23 am Transcribed By: MIGUEL Transcribed Date/Time: 04/11/24 8:55 am * Exam Date Time Procedure Performing Provider Status 04/10/24 3:25 PM Chest 2 Views Fronta l and Lat Payton Olivera; Italo (Verified) Notes: (Chest 2 Views Frontal and Lat) Reason For Exam: Stroke;Other: RESULT: Chest 2 Views Frontal and Lat Chest 2 Views Frontal and Lat Reason: Other:; Stroke; Clinical Question(s): CHF; Order Comment: COMPARISON: 05/28/2023 FINDINGS: LINES AND TUBES: Neurostimulator device noted. LUNGS AND PLEURA: Clear lungs. Normal pulmonary vascularity. No pleural effusion. No pneumothorax. HEART, MEDIASTINUM AND HARMONY: Heart is normal in size. Normal mediastinal and hilar contour. BONES AND SOFT TISSUES: No acute abnormality. IMPRESSION: No acute abnormality. WSN: [id number] Ordering Physician: Darrell Young Dictated By: Ted Ulrich MD Dictated Date/Time: 04/10/24 3:33 pm Reviewed By: Ted Ulrich MD Signed By: Ted Ulrich MD Signed Date/Time: 04/10/24 3:33 pm Transcribed By: MIGUEL Transcribed Date/Time: 04/10/24 3:30 pm * Exam Date Time Procedure Performing Provider Status 04/10/24 12:[address] Head-Hyper Acute Stroke Colon , T atiana; Auth (Verified) Notes: (CT Head-Hyper Acute Stroke) Reason For Exam: Neuro deficit, acute, stroke suspected;Other: RESULT: CT Head-Hyper Acute Stroke CT Head-Hyper Acute Stroke INDICATION: Reason: Other:; Neuro deficit, acute, stroke suspected; Clinical Question(s): Other:; Hematoma Infarction TECHNIQUE: Noncontrast head CT using axial technique and reconstructed in axial and coronal planes.Iterative reconstruction techniques are used to optimize dose and image quality. COMPARISON: None. FINDINGS: Mannequin Refinisher view findings, lines and tubes: None. BRAIN AND EXTRA-AXIAL SPACES: No parenchymal hemorrhage, midline shift, or mass effect. Romo-white matter differentiation is wellpreserved. No acute infarct. Small old infarcts adjacent to the frontal horn of the right lateral ventricle and right parietal lobe, unchanged. Ventricles, sulci, and basilar cisterns are normal. Cortical involutional changes are mildly prominent for patient age. There are moderate low density white matter changes which are prominent for patient age. No subarachnoid hemorrhage. No subdural or epidural collection. CALVARIUM, SKULL BASE, AND SOFT TISSUES: No fractures or suspicious bony lesions. The paranasal sinuses and mastoid air cells are clear. Visualized orbits and globes are intact. The extracranial soft tissues are unremarkable. IMPRESSION: No acute intracranial pathology. Stable small old infarcts in the right cerebral hemisphere. Low-density white matter changes in both cerebral hemispheres greater than expected for patient age and likely representing extensive microvascular disease. WSN: [id number] Ordering Physician: Darrell Young Dictated By: Cj Orozco MD Dictated Date/Time: 04/10/24 12:58 p Reviewed By: Cj Orozco MD Signed By: Cj Orozco MD Signed Date/Time: 04/10/24 12:58 pm Transcribed By: MIGUEL Transcribed Date/Time: 04/10/24 12:54 pm * Exam Date Time Procedure Performing Provider Status 04/10/24 12:[address] Angio Neck Hyperacute Stroke Adrianna Freeman; Auth (Verified) Notes: (CT Angio Neck Hyperacute Stroke) Reason For Exam: Aneurysm, neck vessel(s);Other: RESULT: CT Angio Neck Hyperacute Stroke CT Angio Head Hyperacute Stroke, CT Angio Neck Hyperacute Stroke Reason: Other:; Stroke; Clinical Question(s): Other:; Hematoma Aneurysm / Other: Symptoms are slurred speech and difficulty swallowing per triage note. TECHNIQUE: CT angiogram of the head and neck was performed after bolus administration of intravenous contrast. 100 mL of Isovue 300 was administered intravenously. Coronal and sagittal MIP reformatted images were obtained. Additional 3-D images were created on a separate workstation under concurrent supervision by the attending radiologist. All stenoses are measured using NASCET criteria. Weight-based protocol using automatic tube modulation was used to optimize exposure parameters. RADIATION DOSE PARAMETERS: CTDIvol Body: 13.93 mGy, DLP Body: 816 mGy*cm. CTDIvol Head: 46.10 mGy, DLP Head: 773 mGy*cm. COMPARISON: Noncontrast CT head performed concurrently. CTA of the head and neck 05/28/2023. FINDINGS: CTA OF THE NECK: Arch: There is a four vessel aortic arch, with direct origin of the left vertebral artery from the aorta. Origins of the supra-aortic vessels are degraded by motion and beam-hardening artifact, but patent. Right carotid system: The common carotid and cervical internal carotid arteries are patent. There is calcified atherosclerotic plaque at the carotid bifurcation, but no ICA stenosis (0%) by NASCET criteria. Left carotid system: The common carotid and cervical internal carotid arteries are patent. There iscalcified atherosclerotic plaque which extends from the distal common carotid artery through the carotid bifurcation and results in mild distal common carotid artery stenosis, but no ICA stenosis (0%) by NASCET criteria. There is a right-dominant vertebral artery system. Right vertebral: There is calcified atherosclerotic plaque at the origin but no significant stenosis. Left vertebral: Hypoplastic. Patent. Other: Soft tissues and bones: No evidence of lymphadenopathy or mass. Implanted stimulator device is again demonstrated with lead extending to the right floor of mouth. Subcentimeter thyroid nodularity, not requiring follow-up given the small size. Visualized lungs are blurred by motion artifact, withoutsignificant superimposed airspace opacity. There is emphysema. Multilevel degenerative changes of the spine are noted, without acute osseous abnormality. Multiple dental caries and periapical lucencies. Coronary artery calcifications are noted, partially imaged. CTA OF THE HEAD: Anterior circulation: Bilateral intracranial ICAs demonstrate atherosclerotic calcification, without stenosis. Bilateral TUNDE and MCA branches are patent. There is no significant stenosis, proximal cutoff, aneurysm, or vascular malformation. Posterior circulation: The right intracranial vertebral artery, the basilar artery, and bilateral superior cerebellar and posterior cerebral branches are patent. There is no significant stenosis, proximal cutoff, aneurysm, or vascular malformation. The left PICA is patent but there is non opacification of the nondominant left vertebral artery distal to the PICA origin. Veins: Major dural venous sinuses are patent. Other: Soft tissues and bones: No midline shift or effacement of the basal cisterns. No space-occupying hemorrhage. No large acute territorial loss of romo-white matter differentiation. Orbits are unremarkable. Scattered paranasal sinus mucosal thickening with mucus retention cysts inthe left maxillary sinus. IMPRESSION: The V4 segment of the nondominant left vertebral artery distal to the PICA origin again appears severely stenotic or occluded. No other large vessel occlusion or high-grade stenosis is demonstrated in the major arteries of the head and neck. WSN: [id number] Ordering Physician: Darrell Young Dictated By: Sheyla Rea MD Dictated Date/Time: 04/10/24 2:02 pm Reviewed By: Sheyla Rea MD Signed By: Sheyla Rea MD Signed Date/Time: 04/10/24 2:02 pm Transcribed By: MIGUEL Transcribed Date/Time: 04/10/24 1:01 pm * Exam Date Time Procedure Performing Provider Status 04/10/24 12:[address] Angio Head Hyperacute Stroke Adrianna Freeman; Auth (Verified) Notes: (CT Angio Head Hyperacute Stroke) Reason For Exam: Stroke;Other: RESULT: CT Angio Head Hyperacute Stroke CT Angio Head Hyperacute Stroke, CT Angio Neck Hyperacute Stroke Reason: Other:; Stroke; Clinical Question(s): Other:; Hematoma Aneurysm / Other: Symptoms are slurred speech and difficulty swallowing per triage note. TECHNIQUE: CT angiogram of the head and neck was performed after bolus administration of intravenous contrast. 100 mL of Isovue 300 was administered intravenously. Coronal and sagittal MIP reformatted images were obtained. Additional 3-D images were created on a separate workstation under concurrent supervision by the attending radiologist. All stenoses are measured using NASCET criteria. Weight-based protocol using automatic tube modulation was used to optimize exposure parameters. RADIATION DOSE PARAMETERS: CTDIvol Body: 13.93 mGy, DLP Body: 816 mGy*cm. CTDIvol Head: 46.10 mGy, DLP Head: 773 mGy*cm. COMPARISON: Noncontrast CT head performed concurrently. CTA of the head and neck 05/28/2023. FINDINGS: CTA OF THE NECK: Arch: There is a four vessel aortic arch, with direct origin of the left vertebral artery from the aorta. Origins of the supra-aortic vessels are degraded by motion and beam-hardening artifact, but patent. Right carotid system: The common carotid and cervical internal carotid arteries are patent. There is calcified atherosclerotic plaque at the carotid bifurcation, but no ICA stenosis (0%) by NASCET criteria. Left carotid system: The common carotid and cervical internal carotid arteries are patent. There iscalcified atherosclerotic plaque which extends from the distal common carotid artery through the carotid bifurcation and results in mild distal common carotid artery stenosis, but no ICA stenosis (0%) by NASCET criteria. There is a right-dominant vertebral artery system. Right vertebral: There is calcified atherosclerotic plaque at the origin but no significant stenosis. Left vertebral: Hypoplastic. Patent. Other: Soft tissues and bones: No evidence of lymphadenopathy or mass. Implanted stimulator device is again demonstrated with lead extending to the right floor of mouth. Subcentimeter thyroid nodularity, not requiring follow-up given the small size. Visualized lungs are blurred by motion artifact, withoutsignificant superimposed airspace opacity. There is emphysema. Multilevel degenerative changes of the spine are noted, without acute osseous abnormality. Multiple dental caries and periapical lucencies. Coronary artery calcifications are noted, partially imaged. CTA OF THE HEAD: Anterior circulation: Bilateral intracranial ICAs demonstrate atherosclerotic calcification, without stenosis. Bilateral TUNDE and MCA branches are patent. There is no significant stenosis, proximal cutoff, aneurysm, or vascular malformation. Posterior circulation: The right intracranial vertebral artery, the basilar artery, and bilateral superior cerebellar and posterior cerebral branches are patent. There is no significant stenosis, proximal cutoff, aneurysm, or vascular malformation. The left PICA is patent but there is non opacification of the nondominant left vertebral artery distal to the PICA origin. Veins: Major dural venous sinuses are patent. Other: Soft tissues and bones: No midline shift or effacement of the basal cisterns. No space-occupying hemorrhage. No large acute territorial loss of romo-white matter differentiation. Orbits are unremarkable. Scattered paranasal sinus mucosal thickening with mucus retention cysts inthe left maxillary sinus. IMPRESSION: The V4 segment of the nondominant left vertebral artery distal to the PICA origin again appears severely stenotic or occluded. No other large vessel occlusion or high-grade stenosis is demonstrated in the major arteries of the head and neck. WSN: [id number] Ordering Physician: Darrell Young Dictated By: Sheyla Rea MD Dictated Date/Time: 04/10/24 2:02 pm Reviewed By: Sheyla Rea MD Signed By: Sheyla Rea MD Signed Date/Time: 04/10/24 2:02 pm Transcribed By: MIGUEL Transcribed Date/Time: 04/10/24 1:01 pm Vital Signs Most recent to oldest [Reference Range]: 1 2 3 4 Height 173 cm (04/18/24 2:35 PM) 173 cm (04/16/24 3:36 PM) 173 cm (04/16/24 11:14 AM) Weight 85 kg (04/18/24 2:35 PM) 85 kg (04/12/24 6:27 PM) 85 kg (04/10/24 5:25 PM) Oxygen Saturation [94-100 %] 96 % (04/19/24 3:00 PM) 97 % (04/19/24 11:00 AM) 95 % (04/19/24 7:00 AM) Pulse Rate [55-90 bpm] 81 bpm (04/19/24 3:00 PM) 74 bpm (04/19/24 11:00 AM) 70 bpm (04/19/24 7:00 AM) Body Mass Index [18.5-24.99 kg/m2] 28.4 kg/m2 *H* (04/18/24 2:35 PM) 28.4 kg/m2 *H* (04/12/24 6:27 PM) 28.4 kg/m2 *H* (04/10/24 4:36 PM) Blood Pressure [90-138/55-84 mm Hg] 133/84mm Hg (04/19/24 3:00 PM) 123/77mm Hg (04/19/24 11:00 AM) 135/92mm Hg (04/19/24 9:27 AM) 135/92mm Hg (04/19/24 9:27 AM) Respiratory Rate [16-30 br/min] 18 br/min (04/19/24 3:00 PM) 18 br/min (04/19/24 11:00 AM) 18 br/min (04/19/24 7:00 AM) Temperature [96.8-100.4 DegF] 98.1 DegF (04/19/24 3:00 PM) 97.3 DegF (04/19/24 11:00 AM) 97.8 DegF (04/19/24 7:00 AM) Liters per Minute 5 L/min (04/18/24 5:33 PM) 10 L/min (04/18/24 5:28 PM) 10 L/min (04/18/24 5:23 PM) Mode of Delivery (Oxygen) Room air (04/19/24 3:00 PM) Room air (04/19/24 11:00 AM) Room air (04/19/24 7:00 AM) Blood pressure sites Arm, right (04/19/24 3:00 PM) Arm, right (04/19/24 11:00 AM) Arm, right (04/19/24 7:00 AM) Temperature Route Oral (04/19/24 3:00 PM) Oral (04/19/24 11:00 AM) Oral (04/19/24 7:00 AM) Dry Weight 85 kg (04/12/24 6:27 PM) 85 kg (04/10/24 4:36 PM) Social History Social History Type Response Smoking Status Never (less than 100 in lifetime) entered on: 05/01/19 Sex Sex Representation Male (finding) Clinical Note * Event Display: GG EGD Please click on pdf link to open report History and physical note * Benjamin ALANIS, Saulo: PERFORM Event Display: History and Physical Hospital Authored Date: [id number] Patient: ??DALTON COLLINS ? Age:??58 Years?Sex:??Male?:??1965?? Chief Complaint/Reason for Consultation Swallowing difficulty History of Present Illness Patient is a 58-year-old male with history of jea-eywggav-fjvttuekn type 2 diabetes, hypertension, sleep apnea status post hypoglossal nerve stimulator, seizure disorder, admission in May for acute vertigo at which time MRI could not be done because of his hypoglossal nerve stimulator and CT was negative for stroke but he was started on aspirin and Plavix for stroke prevention due to risk factors and was recommended outpatient Zio patch for A- fib, was also found to be COVID-positive at that time, comes in today as a stroke alert.?? Last known well 2 hours prior to presentation, main symptoms reported were swallowing difficulty that progressed to the point where he had difficulty swallowing his saliva, also reported some word finding difficulties and speech difficulty.?? At the time of my interview he continues to have trouble swallowing his saliva and continues to spit it in a napkin.?? He is able to talk to me but states that his speech is heavy than usual.?? He denies any headache or vision changes or focal weakness.?? He does report some tingling in his hand and his foot.?? Reports that tingling in the hand is not new and he has neuropathy but reports new tingling in his foot on both sides.?? He otherwise denies any cough or fevers or chills, no chest pain or shortness of breath or palpitation.?? No nausea or vomiting or constipation or diarrhea.?? No abdominal pain.??No dysuria, urgency or frequency. ? Review of Systems All other review of systems were negative with the exception of those noted above in the HPI.?? Objective Measurements?? Height: 173 cm (04/11/24) Weight: 85 kg (04/10/24) Dry Weight: 85 kg (04/10/24) Body Mass Index:??28.4 kg/m2??High (04/10/24) ? Vital Signs?? Temperature: 98.1 DegF (04/11/24 03:57:00) Temperature Route: Oral (04/11/24 03:57:00) Pulse Rate: 80 bpm (04/11/24 03:57:00) Respiratory Rate: 20 br/min (04/11/24 03:57:00) Systolic Blood Pressure:??155 mm Hg??High (04/11/24 03:57:00) Diastolic Blood Pressure: 78 mm Hg (04/11/24 03:57:00) Blood pressure sites: Arm, right (04/11/24 03:57:00) Mean Arterial Pressure: 104 mm Hg (04/11/24 03:57:00) Pulse Pressure: 77 mm Hg (04/11/24 03:57:00) Oxygen Saturation: 99 % (04/11/24 03:57:00) Mode of Delivery (Oxygen): Room air (04/11/24 03:57:00) Early Warning Score: 1 (04/11/24 03:58:05) ? Intake/Output? 04/10 15:50 04/11 07:00 04/10 07:00 04/09 07:00 04/08 07:00 ?? 04/11 04:44 04/11 04:44 04/11 06:59 04/10 06:59 04/09 06:59 Intake ?800 ?0 ?800 ?0 ?0 Output ?0 ?0 ?0 ?0 ?0 Net Total ?800 ?0 ?800 ?0 ?0 ? NIH Stroke Scale Level of Consciousness for Stroke Scale: Alert (04/10/24 12:50:00) Response Month/Age: Answers both questions correctly (04/10/24 12:50:00) Response Open/Close Eyes: Performs both tasks correctly (04/10/24 12:50:00) Best Gaze: Normal (04/10/24 12:50:00) Visual: No visual loss (04/10/24 12:50:00) Facial Palsy: Minor paralysis (04/10/24 12:50:00) Motor Function Left Arm: No drift (04/10/24 12:50:00) Motor Function Right Arm: No drift (04/10/24 12:50:00) Motor Function Left Leg: No drift (04/10/24 12:50:00) Motor Function Right Leg: No drift (04/10/24 12:50:00) Limb Ataxia: Absent (04/10/24 12:50:00) Sensory: Normal; no sensory loss (04/10/24 12:50:00) Best Language: No aphasia (04/10/24 12:50:00) Dysarthria NIH Stroke Scale: Normal (04/10/24 12:50:00) Extinction and Inattention: No abnormality (04/10/24 12:50:00) NIH Stroke Scale Score: 1 (04/10/24 12:50:00) ? Physical Exam Constitutional: Alert, in no acute distress.?? Anxious appearing Head EENT: Extraocular muscle movement intact.??Moist mucous membranes.?Uvula deviated to the right side Neck: Supple. No JVD. Respiratory: Clear to auscultation. No wheezing or crackles. No use of accessory muscles. Cardiovascular: S1S2 regular. No murmurs, rubs or gallops. Gastrointestinal: Abdomen soft, non-tender, non-distended. Normal bowel sounds. Genitourinary: No CVA tenderness. Extremities: No lower extremity pitting??edema. No cyanosis or clubbing. Neurologic: AAOx3, Speech normal but when??asked about it??becomes pressured, no focal neurologicaldeficits.?? Difficulty with swallowing, keeps spitting his saliva in the napkin. Skin: No rash. Psychiatric: Anxious otherwise normal mood and affect. Assessment/Plan Diagnoses 1. ??Dysphagia ??(R13.10) 2. ??Speech complaints ??(R47.9) 3. ??Paresthesia ??(R20.2) 4. ??Hyperlipidemia ??(E78.5) 5. ??Uncontrolled hypertension ??(I10) 6. ??Depression ??(F32.A) 7. ??Anxiety ??(F41.9) 8. ??Seizure disorder ??(G40.909) 9. ??EDIN (obstructive sleep apnea) ??(G47.33) 10. ??Status post insertion of hypoglossal nerve stimulator ??(Z96.82) 11. ??Type 2 diabetes mellitus ??(E11.9) ?? Dysphagia (R13.10) ?Associated with??Speech complaints (R47.9),??Paresthesia (R20.2),??Hyperlipidemia (E78.5) ? -Evaluated by neurology team in the ED, not a candidate for lytics, no LVO and hence no NEV,??recommending repeating CT head in the morning as cannot do MRI due to his hypoglossal nerve stimulator -Check lipid panel and A1c, Resume atorvastatin 80 mg daily once able to take p.o.? -Failed bedside swallow, speech consult ordered by PM&R. -Started aspirin 300 mg rectal, switch to 81 mg daily p.o. once able to take oral and resume Dccivf43 mg daily as he takes at home once able to swallow. -TTE ordered -Check TSH -Permissive hypertension today, was noted to have blood pressure more than 200 in the ED and has received labetalol x 2, resume home medications tomorrow for SBP goal less than 180 or use IV labetalol if unable to take p.o.??Day team to order this based on the condition in the morning ?? Uncontrolled hypertension (I10):??Appears to be on hydrochlorothiazide 12.5 mg and lisinopril 20 mgdaily, blood pressure appears to be uncontrolled.??Currently unable to take p.o. and not doing IV for permissive hypertension.??He did receive 2 doses of labetalol in the ED prior to me evaluation.??Resume home dose lisinopril/hydrochlorothiazide, consider increasing dose for better blood pressure control, consider IV labetalol if continues to be n.p.o. ?? Anxiety (F41.9) ?Associated with??Depression (F32.A) ? Resume sertraline when able to take p.o. ?? Seizure disorder (G40.909):??appears to be on 500 mg 2 times a day of divalproex at home, will start 500 twice daily IV while admitted.??Hold topiramate till able to swallow ?? EDIN (obstructive sleep apnea) (G47.33) ?Associated with??Status post insertion of hypoglossal nerve stimulator (Z96.82) ? Stable ?? Type 2 diabetes mellitus (E11.9):??Hold metformin, POC glucose checks with sliding scale insulin while admitted ?? VTE Prophylaxis:??Subacute heparin ?VTE Prophylaxis Assessment:??VTE Prophylaxis Ordered ?? Discharge Planning:? Code Status:??Full resuscitation, confirmed with patient ?Order Code Status:??Code Status Ordered ? Estimated Discharge Date ? Histories Allergies Allergies ?(Active and Proposed Allergies Only) Lactose? (Severity: Unknown severity, Onset: Unknown) ?Reactions: Diarrhea ? Past Medical History/Problem List Active Problems(10) Anxiety COVID-19 Depression Diabetes High cholesterol Hypertension EDIN (obstructive sleep apnea) Seizure disorder Status post insertion of hypoglossal nerve stimulator Type 2 diabetes mellitus ? Past Surgical History No surgery history documented. ?? See HPI Social History Alcohol Details:??Use: Never. Employment/School Details:??Status: Employed. ??Other: [employer]. Exercise Details:??Self assessment: Good condition. Substance Abuse Details:??Use: Never. Tobacco Details:??Use: Never (less than 100 in lifetime). ? Family History Mother: Aneurysm; Diabetes mellitus; Stroke Father: Diabetes mellitus ? Medications Home Medications Aspirin (aspirin 81 mg oral delayed release tablet)?81?Milligram?By Mouth?Daily?for 180?Days Atorvastatin (atorvastatin 80 mg oral tablet)?1?tab(s)?80?Milligram?By Mouth?Daily Clopidogrel (Plavix 75 mg oral tablet)?75?Milligram?By Mouth?Daily?for 21?Days Divalproex Sodium (divalproex sodium 500 mg oral enteric coated tablet)?1?tab(s)?500?Milligram?By Mouth?2 times a day dulaglutide (Trulicity Pen 1.5 mg/0.5 mL subcutaneous solution)?0.5?Milliliter?1.5?Milligram?Subcutaneous Injection?Every week?on Monday Hydrochlorothiazide-Lisinopril (hydrochlorothiazide-lisinopril 12.5 mg-20 mg oral tablet)?1?tab(s)?By Mouth?Daily Metformin (metFORMIN 1000 mg oral tablet)?1?tab(s)?1,000?Milligram?By Mouth?2 times a day Sertraline (sertraline 25 mg oral tablet)?1?tab(s)?25?Milligram?By Mouth?Daily Topiramate (topiramate 50 mg oral tablet)?1?tab(s)?50?Milligram?By Mouth?Daily ? Inpatient Medications Medications (12) Active SCHEDULED: (5) Aspirin 300 mg Suppository (Aspirin Supp) ??300 mg, Rectally, Daily Heparin 5000 units/mL Inj (1 mL) (Heparin Inj) ??5,000 units 1 mL, Subcutaneous Injection, 3 times a day Insulin Lispro 100 units/mL Inj (Insulin LISPRO Sliding Scale) ??1-5 units, Subcutaneous Injection,Every 6 hours NaCl 0.9% Flush 3ml (NaCL 0.9% Flush) ??3 mL, IV Push, Every 8 hours Valproic Acid Sodium 500 mg IVPB (Depacon IVPB) ??500 mg 5 mL, IVPB, Every 12 hours CONTINUOUS: (1) NaCL 0.9% (1000 mL) Cont IV 1,000 mL (0.9% NaCL 1,000 mL) ??1,000 mL, IV Infusion, 100 mL/hr PRN: (6) Dextrose Inj Syringe (Dextrose 50% Inj Syringe (25Gm)) ??12.5 Gm, IV Push Slowly, Every 20 minutes Dextrose Inj Syringe (Dextrose 50% Inj Syringe (25Gm)) ??25 Gm, IV Push Slowly, Every 15 minutes Glucagon 1 mg Inj (Glucagon Inj) ??1 mg, Intramuscular, Once Glucose 40% Gel (15 Gm) (Glucose Gel) ??15 Gm, By Mouth, Every 20 minutes Glucose 40% Gel (15 Gm) (Glucose Gel) ??30 Gm, By Mouth, Every 20 minutes NaCl 0.9% Flush 3ml (NaCL 0.9% Flush) ??3 mL, IV Push, Every 8 hours ? Results Recent Labs BLOOD BANK Blood Type AB Positive ()?? 04/10/2024 12:28 Antibody Screen Negative ()?? 04/10/2024 12:28 ?? BLOOD COUNT & DIFF WBC 5.1 k/mm3 ()?? 04/10/2024 13:08 RBC 6.24 m/mm3 (High)?? 04/10/2024 13:08 Hgb 17.4 Gm/dL (High)?? 04/10/2024 13:08 Hct 50.2 % (High)?? 04/10/2024 13:08 MCV 80.4 femtoliters ()?? 04/10/2024 13:08 MCH 27.9 pg ()?? 04/10/2024 13:08 MCHC 34.7 Gm/dL ()?? 04/10/2024 13:08 Platelet Count 177 k/mm3 ()?? 04/10/2024 13:08 RDW-SD 37.4 femtoliters ()?? 04/10/2024 13:08 MPV 10.0 femtoliters ()?? 04/10/2024 13:08 Nucleated RBC (Automated) 0.0 #/100 WBC'S ()?? 04/10/2024 13:08 Abs. NRBC 0.0 k/mm3 ()?? 04/10/2024 13:08 Abs. Neut 3.7 k/mm3 ()?? 04/10/2024 13:08 Abs. Lymph 1.1 k/mm3 ()?? 04/10/2024 13:08 Abs. [place] 0.2 k/mm3 (Low)?? 04/10/2024 13:08 Abs. Eo 0.0 k/mm3 ()?? 04/10/2024 13:08 Abs. Baso 0.0 k/mm3 ()?? 04/10/2024 13:08 Neut % 72.6 % ()?? 04/10/2024 13:08 Lymph % 22.3 % ()?? 04/10/2024 13:08 [place] % 3.9 % (Low)?? 04/10/2024 13:08 Eos % 0.6 % ()?? 04/10/2024 13:08 Baso % 0.2 % ()?? 04/10/2024 13:08 Imm Gran 0.4 % ()?? 04/10/2024 13:08 Abs. Imm Gran 0.0 k/mm3 ()?? 04/10/2024 13:08 ?? CARDIAC High Sensitivity Troponin (HSTnT) 9 ng/L ()?? 04/10/2024 15:09 ?? CHEM GENERAL Sodium 134 mmol/L ()?? 04/10/2024 13:08 Potassium 4.2 mmol/L ()?? 04/10/2024 15:09 Chloride 97 mmol/L (Low)?? 04/10/2024 13:08 Bicarbonate Level 19 mmol/L (Low)?? 04/10/2024 13:08 Anion Gap 18 (High)?? 04/10/2024 13:08 Glucose Level 238 mg/dL (High)?? 04/10/2024 13:08 Glucose, POC 165 mg/dL (High)?? 04/11/2024 02:09 Hemoglobin A1C (Monitoring) 8.2 % (High)?? 04/10/2024 13:08 BUN 17 mg/dL ()?? 04/10/2024 13:08 Creatinine-Blood 0.79 mg/dL ()?? 04/10/2024 13:08 Estimated GFR Creatinine 104 ML/MIN/1.73 M2 ()?? 04/10/2024 13:08 Calcium 9.5 mg/dL ()?? 04/10/2024 13:08 AST (SGOT) HEMOLYZED units/L ()?? 04/10/2024 13:08 ?? LIPID STUDIES Cholesterol 231 mg/dL (High)?? 04/11/2024 01:16 Triglycerides 270 mg/dL (High)?? 04/11/2024 01:16 HDL Cholesterol 32 mg/dL (Low)?? 04/11/2024 01:16 LDL Cholesterol 145 mg/dL (High)?? 04/11/2024 01:16 Non HDL Cholesterol 199 mg/dL (High)?? 04/11/2024 01:16 ?? UA/URINALYSIS Appear/Color, Urine COLORLESS ()?? 04/10/2024 13:49 Specific [place], Urine 1.039 (High)?? 04/10/2024 13:49 pH, Urine 6.5 ()?? 04/10/2024 13:49 Albumin, Urine NEGATIVE ()?? 04/10/2024 13:49 Glucose, Urine 4+ (Abnormal)?? 04/10/2024 13:49 Ketones, Urine 1+ (Abnormal)?? 04/10/2024 13:49 Bilirubin, Urine NEGATIVE ()?? 04/10/2024 13:49 Hemoglobin, Urine NEGATIVE ()?? 04/10/2024 13:49 Nitrite, Urine NEGATIVE ()?? 04/10/2024 13:49 Leukocyte, Urine NEGATIVE ()?? 04/10/2024 13:49 Urobilinogen NORMAL mg/dL ()?? 04/10/2024 13:49 WBC's, Urine NONE SEEN /HPF ()?? 04/10/2024 13:49 RBC's, Urine NONE SEEN /HPF ()?? 04/10/2024 13:49 Mucus SLIGHT /LPF ()?? 04/10/2024 13:49 ?? URINE OTHER Est Creatinine Clearance 100.18 mL/min ()?? 04/10/2024 17:27 ? EKG study * Event Display: ECG 12-Lead Authored Date: Please click on pdf link to open report * Event Display: ECG 12-Lead Authored Date: Ventricular Rate: 89 BPM Atrial Rate: 89 BPM P-R Interval: 138 ms QRS Duration: 138 ms Q-T Interval: 380 ms QTC Calculation(Bazett): 462 ms P [place]: 47 degrees R [place]: 72 degrees T [place]ache[place]: 30 degrees Normal sinus rhythm Right bundle branch block Possible Inferior infarct , age undetermined Abnormal ECG When compared with ECG of 28-May-2023 19:35, Right bundle branch block has replaced Incomplete right bundle branch block Confirmed by MARION CONRAD MD ([id number]) on 04/10/2024 8:38:07 PM [place]: MARION CONRAD MD Heart * Event Display: Echocardiogram - Complete Authored Date: Transthoracic Echocardiography Report (TTE) Patient Demographics Patient Name DALTON COLLINS Date of Study 04/11/2024 Corporate Gender Male Facility Race Ethnicity Date of 1965 Height: 68.11 inches Age 58 year(s) Weight: 187.39 pounds Accession Number [id number] BSA: 1.99 m2 Room Number [id number] BMI: 28.4 kg/m2 Referring Physician UNASSIGNED Interpreting Olu Medley UNASSIGNED Physician Plant Care Worker Aaron Solano Fellow Fay Jo MD Indications CVA. Clinical History Hypertension. EDIN Diabetes Mellitus. Study Data Type of Study TTE procedure:Echo Complete-Doppler, Colorflow, M-Mode. Study Date04/11/2024 Start Time: 08:50 AM Study Location: [facility] [place] [facility] Echo Study Status: Echo lab Patient Status: Routine Technical Quality: Fair Blood Pressure:158/86 mmHg EKG: Normal sinus rhythm HR: 75 bpm 2D Measurements LV Diastolic Dimension: 4.3 cm LV Systolic Dimension: 3.1 cm LV Septum Diastolic: 1.07 cm LV PW Diastolic: 1.09 cm AO Root Dimension: 3.6 cm LA ESV (BP):46.1 ml LVOT Stroke Volume: 56.06 ml LA ESV Index: 23 ml/m2 Stroke Volume Index28.17 ml/m2 LVOT: 2.3 cm Cardiac Index:2.11 l/min/m2 Ascending Aorta:3.5 cm Doppler Measurements AV Peak Velocity: 103 cm/s MV Peak E-Wave: 51 cm/s AV Peak Gradient: 4.24 mmHg MV Peak A-Wave: 60.8 cm/s AV Mean Gradient: 2 mmHg MV E/A Ratio: 0.84 AV VTI:21.6 cm MV P1/2t: 62 msec LVOT Peak Velocity: 70.5 cm/s LVOT VTI13.5 cm MV Deceleration Time: 211 msec AV Area (Continuity):2.6 cm2 MV Area (PHT): 3.55 cm2 TR Velocity:197 cm/s TR Gradient:15.52 mmHg E' Septal Velocity: 4.57 cm/s E' Lateral Velocity: 5.66 cm/s E/Med E':11.91746 E/Lat E':[id number] Cardiac Anatomy Left Ventricle/Interventricular Septum The left ventricular size is normal. The left ventricular wall thickness is mildly increased. The LV systolic function is normal . The left ventricular ejection fraction is 60-65 %. The apex is poorly visualized. No obvious wall motion abnormalities seen on limited views. There is no doppler evidence of increased filling pressures. Left Atrium/Interatrial Septum The left atrium is normal in size. Aortic Valve The aortic valve is trileaflet . The aortic valve appears mildly calcified. There is no aortic regurgitation. There is no aortic stenosis. Mitral Valve The mitral valve appears mildly thickened. There is no significant mitral regurgitation. There is no significant mitral stenosis. Aorta The ascending aorta and aortic root are normal in size. Right Ventricle The right ventricle is normal in size and function. Right Atrium The right atrium is normal in size. Pulmonic Valve The pulmonic valve appears normal. There is trace pulmonic regurgitation. Tricuspid Valve The tricuspid valve is grossly normal. There is trace regurgitation. Pumonary Artery The pulmonary artery systolic pressure estimation is within normal limits. Venous Structures The inferior vena cava appears normal. Pericardium/Extracardiac There is no pericardial effusion. Summary The left ventricular size is normal. The left ventricular wall thickness is mildly increased. The LV systolic function is normal . The left ventricular ejection fraction is 60-65 %. The apex is poorly visualized. No obvious wall motion abnormalities seen on limited views. There is no doppler evidence of increased filling pressures. The mitral valve appears mildly thickened. There is no significant mitral regurgitation. There is no significant mitral stenosis. The right ventricle is normal in size and function. Comparison No prior study available for comparison. Signature * Event Display: Echocardiogram - Complete Authored Date: Cardiology * Event Display: Cardiac Rhythm Strips Authored Date: Hospital Progress note * Cristóbal ALANIS, [facility]: PERFORM Event Display: Progress Note Hospital Authored Date: Patient: ??DALTON COLLINS ? Age:??58 Years?Sex:??Male?:??1965?? Post op check: PEG tube examined at bedside.?? PEG tube seems to be in good position. Patient denies any significant pain. No significant abdominal tenderness apart from incision site.?? No bleeding noted. ?? Plan: Ok to use PEG tube for tube feeds and medications No restriction on antiplatelets or AC froim GI standpoint Routine PEG tube care per RN and primary team GI will sign off. ? The patient's case and management was discussed with Dr. Nilo Ambrocio MD Gastroenterology Fellow PGY5 * Deepak Rodrigues MD: PERFORM Event Display: Progress Note Hospital Authored Date: Patient: ??DALTON COLLINS ? Age:??58 Years?Sex:??Male?:??1965?? Subjective Patient is seen and examined by the bedside.?? No acute events overnight Review of Systems All systems reviewed, negative except for as mentioned above.?? Objective Vital Signs?? Temperature: 97.8 DegF (04/18/24 14:35:00) Temperature Route: Temporal (04/18/24 14:35:00) Pulse Rate:??97 bpm??High (04/18/24 14:35:00) Respiratory Rate:??15 br/min??Low (04/18/24 14:35:00) Systolic Blood Pressure:??153 mm Hg??High (04/18/24 14:35:00) Diastolic Blood Pressure:??92 mm Hg??High (04/18/24 14:35:00) Blood pressure sites: Arm, right (04/18/24 14:35:00) Mean Arterial Pressure: 112 mm Hg (04/18/24 14:35:00) Pulse Pressure: 47 mm Hg (04/18/24 04:13:00) Oxygen Saturation: 96 % (04/18/24 14:35:00) Mode of Delivery (Oxygen): Room air (04/18/24 14:35:00) Early Warning Score: 2 (04/18/24 14:37:00) ? Physical Exam Constitutional: Alert, in no acute distress. Mental Status: Oriented to person, place and time. Head: Normocephalic. Eyes: Pupils are equal, round and reactive to light.?? Ear, Nose and Throat: Oropharynx clear, mucous membranes moist.??NG tube in place. Neck: Supple, Full range of motion. Respiratory: Clear to auscultation and percussion. No wheezing, rales or rhonchi. Cardiovascular: S1 S2 regular. No murmurs, rubs or gallops. Gastrointestinal: Abdomen soft, non-tender, non-distended. Normal bowel sounds.?? Neurologic: Cranial nerves II-XII grossly intact. No focal neurological deficits?? Skin: No rashes or lesions. No petechiae or purpura. Musculoskeletal: No cyanosis or clubbing. No gross deformities.?? _ Inpatient Medications Medications (19) Active SCHEDULED: (10) Amlodipine 5 mg Tablet (amLODIPine 5 mg oral tablet) ??5 mg, Nasogastric Tube, Daily Aspirin 81 mg Chew Tablet (Aspirin Chew Tablet) ??81 mg, Nasogastric Tube, Daily Atorvastatin 80 mg Tablet (atorvastatin 80 mg oral tablet) ??80 mg, Nasogastric Tube, Daily at bedtime Heparin 5000 units/mL Inj (1 mL) (Heparin Inj) ??5,000 units 1 mL, Subcutaneous Injection, 3 times a day Insulin Lispro 100 units/mL Inj (Insulin LISPRO Sliding Scale) ??1-5 units, Subcutaneous Injection,Every 6 hours Lisinopril 20 mg Tablet (lisinopril 20 mg oral tablet) ??20 mg, Nasogastric Tube, Daily NaCl 0.9% Flush 3ml (NaCL 0.9% Flush) ??3 mL, IV Push, Every 8 hours Senna Tablet (Senna 8.6 mg oral tablet) ??17.2 mg 2 tablet, Nasogastric Tube, Daily Topiramate 6mg/mL Oral Syringe (1mL) (Topiramate Liquid) ??50 mg 8.33 mL, Nasogastric Tube, Daily Valproic Acid Sodium 500 mg IVPB (Depacon IVPB) ??500 mg 5 mL, IVPB, Every 12 hours CONTINUOUS: (0) PRN: (9) Dextrose Inj Syringe (Dextrose 50% Inj Syringe (25Gm)) ??12.5 Gm, IV Push Slowly, Every 20 minutes Dextrose Inj Syringe (Dextrose 50% Inj Syringe (25Gm)) ??25 Gm, IV Push Slowly, Every 15 minutes Glucagon 1 mg Inj (Glucagon Inj) ??1 mg, Intramuscular, Once Glucose 40% Gel (15 Gm) (Glucose Gel) ??15 Gm, By Mouth, Every 20 minutes Glucose 40% Gel (15 Gm) (Glucose Gel) ??30 Gm, By Mouth, Every 20 minutes Labetalol 5 mg/mL Inj (20 mL) (Labetalol Inj) ??10 mg 2 mL, IV Push Slowly, Once Magnesium Hydroxide 8% Susp UD (Milk of Magnesia Liquid) ??30 mL, Nasogastric Tube, Every 6 hours NaCl 0.9% Flush 3ml (NaCL 0.9% Flush) ??3 mL, IV Push, Every 8 hours Polyethylene Glycol 17 Gm Powder (MiraLax Powder) ??17 Gm 1 pack/packet, Nasogastric Tube, Daily ? Results Abnormal Labs ?? CHEM GENERAL Glucose, POC?204 mg/dL (High)?04/18/2024 11:09 ?? Note: Critical results are displayed in red. ? Assessment/Plan Diagnoses Acute CVA (cerebrovascular accident) ??(I63.9) Colon carcinoma metastatic to multiple sites ??(C18.9) 1. ??Dysphagia ??(R13.10) 2. ??Speech complaints ??(R47.9) 3. ??Paresthesia ??(R20.2) 4. ??Hyperlipidemia ??(E78.5) 5. ??Uncontrolled hypertension ??(I10) 6. ??Depression ??(F32.A) 7. ??Anxiety ??(F41.9) 8. ??Seizure disorder ??(G40.909) 9. ??EDIN (obstructive sleep apnea) ??(G47.33) 10. ??Status post insertion of hypoglossal nerve stimulator ??(Z96.82) 11. ??Type 2 diabetes mellitus ??(E11.9) 12. ??Dizziness ??(R42) 13. ??Oropharyngeal dysphagia ??(R13.12) 14. ??Cerebrovascular accident (CVA), unspecified mechanism ??(I63.9) 14. ??Stenosis of left vertebral artery ??(I65.02) ? 58 years old male with medical history of?EDIN on Inspire, type 2??DM, HTN, seizure disorder ([id number] Q12hr) who presented to [facility] with multiple complaints of dysarthria, dysphagia (unable to eat breakfast or handle oral secretions), also left facial numbness and dizziness described as room spinning with concerns for Acute CVA.??He had a??modified barium swallow evaluation suggestive of??a neurogenic cause for dysphagia and while the esophageal bar may be impeding the swallow it is unlikely to cause the sudden onset of dysphagia. He is current getting tube feeds through [facility]??temporarily with plan??for g-tube placement sometime this week if no improvement in swallow. 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 Plan for PEG on 04/18. ? Dysphagia (R13.10) Paresthesia (R20.2) Hyperlipidemia (E78.5) Acute CVA (cerebrovascular accident) (I63.9) - Presumed Evaluated by neurology team in the ED, not a candidate for lytics, no LVO and hence no NEV Repeat CTH non acute. MRI showing acute infarct in the posterior lateral left medulla, 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. No mass effect or hemorrhage. Spoke with neuro, start Plavix when able. Spoke with GI, plan for PEG on ASA, statin through [facility]. Start Plavix when able Plan for PEG on today 04/18 Follow up with GI to find out??when okay to start??feeding. ?? Uncontrolled hypertension (I10): Resumed lisinopril. Start amlodipine for better BP control Anion gap metabolic acidosis likely 2/2 starvation ketosis: resolved Anxiety (F41.9), Depression (F32.A): No longer taking sertraline Seizure disorder (G40.909): Continue divalproex??and topiramate EDIN (obstructive sleep apnea) (G47.33) Status post insertion of hypoglossal nerve stimulator (Z96.82): Stable ? Diet:??Tube feeds, strict??NPO DVT prophylaxis:??Heparin SC Code status:??Full code OMN: Tube feeds, g tube Disposition:??Likely in next??24-48 hrs.??Home??feeding needs to be arranged prior to DC home with services. ? Estimated Discharge Date 04/19/23 ?? (This document has been dictated using 3DVista dictation software. Please do not hesitate to contactthe author for clarification of any unintentional errors should it be needed.) * Fredi JEAN, Meagan: VERIFY, PERFORM, SIGN Event Display: Progress Note Hospital Authored Date: [id number] Patient: DALTON COLLINS Age: 58 years Sex: Male : 1965 Associated Diagnoses: None Author: Fredi JEAN, Meagan Findings Problem Related to Alteration in Neurological : Alteration in Neurological Function/new 04/18/2024 8:00 EST Alteration in Neuro status Related to Acute Stroke (CVA) Goals & Outcomes, Neurological Pt is safe with transfers & activities, Pt will be hemodynamically stable, Pt will be Neurologically stable, Pt will resume/maintain adequate cardiac output, Ptwill state importance of adhering to medication regime, Pt/caregiver will state understanding aspiration precautions, Pt/caregiver will state understanding dietary modifications, Pt/caregiver will state understanding of plan/goals of care, Pt will be without signs of aspiration, Pt/caregiver will be able to describe s/s of TIA/Stroke Interventions, Neurological Assess/monitor for abnormal posturing, Assess/monitor for gaze pattern/extraocular movements, Assess/monitor for increased Intracranial Pressure, Assess/monitor neurologicstatus, Assess/monitor VS per unit standards & prn, Call/Report variances in assessments to provider, Collaborate with Nutrition BH Goals/Interventions, Neurological Yes Neurological, Problem Start 04/12/2024 18:30 Reviewed plan with, Neurological Patient Patient Progression, Neurological Pt progressing according to plan . Nursing Data Neurological Data. : Neurological Data. 04/18/2024 8:00 EST Tongue Disposition Midline Neurological Symptoms Alteration in speech quality, History of seizures, Numbness, Weakness or lossof muscle strength Level of Consciousness Full Consciousness Orientated to person, place, time Person, Place, Time, Event Hallucinations None Facial Symmetry Intact Pupil description, left Regular Pupil description, right Regular Pupil reaction, left Brisk Pupil reaction, right Brisk Strength LUE 5-Active movement against gravity & full resistance Strength RUE 5-Active movement against gravity & full resistance Strength LLE 5-Active movement against gravity & full resistance Strength RLE 5-Active movement against gravity & full resistance Tone LUE Normal Tone RUE Normal Tone LLE Normal Tone RLE Normal Sensation LUE Intact Sensation RUE Intact Sensation LLE Intact Sensation RLE Intact Movement LUE Spontaneous, To command Movement RUE Spontaneous, To command Movement LLE Spontaneous, To command Movement RLE Spontaneous, To command Gait No disturbance Response Eye Opening Spontaneously Motor Response-Adult Obeys commands Verbal Response-Adult Oriented and converses Oumar Coma Score 15 Neuro WNL except Eyes and Movements Conjugate gaze: Move in same direction at same speed Memory Intact Swallow - Neuro Unable to swallow own secretions/saliva . Evaluation (Pt aox4 clear slow speech, follow commands. PERRL pupils brisk. pt denies pain, n/v andheadache. sensation intact all extremities. 5/5 strength all extremities. Pt has been self suctioning. Pt is NPO. Pt going for gtube procedure @ 245pm. Pt on tele box 24 NSR. Pt has been using urinalurine clear and yellow. last bm 04/17. skin intact. L forearm flushed dsg intact. no redness or edema. LSCTA after cough and suction. Heparin held for procedure. see cis for more info) Consult note * Cristóbal ALANIS, Duke H: PERFORM Event Display: Consultation Note Authored Date: [id number] Patient: ??DALTON COLLINS ? Age:??58 Years?Sex:??Male?:??1965?? Referrring Provider Patricia ALANIS, Saundra Chief Complaint Stroke? Reason for Consultation Abnormal MBS History of Present Illness ?? 58-year-old male with reported past medical history of diabetes, hypertension, seizure disorder, presented to the hospital with sudden onset dysarthria, dysphagia, facial numbness and dizziness on 04/10.?? Patient was evaluated by neurology with concern for stroke.?? CT imaging was negative.?? Given concern for prior stroke patient was already on dual antiplatelet therapy and this was continued.?? His MRI was delayed due to concern for compatibility with his hypoglossal nerve stimulator. ?? Patient has significant dysphagia and feels like his secretions and food gets stuck in the back of his throat and he is unable to swallow and ends up spitting it out.?? This is constant and dysphagiawith both solids and liquids.?? This all started suddenly at 8:30 AM on morning and before this the patient was completely fine and never had dysphagia before according to him.?? He has never had a EGD.?? He has never had any oropharyngeal surgery apart from his nerve stimulator placed.??Patient does not smoke or drink alcohol.?? As part of his workup for dysphagia patient underwent modified barium swallow which showed decreased UES opening and absent epiglottic inversion.?? Radiology recommended EGD for follow-up of obstructing CP bar.?? Patient continues having significant dysphagia and is n.p.o. ? RESULT: Modified Barium Swallow W/ Speech (Radio Modified Barium Swallow WITH SPEECH PATHOLOGY IMPRESSION: ?? Severe piriform and vallecular residuals contributed to by lack of UES opening and absent epiglottic inversion. Consider EGD follow-up for obstructing cricopharyngeal bar. ?? For dietary concerns or recommendations, please refer to speech pathologist report. ? Review of Systems Full review of systems completed and was negative except as mentioned above in HPI Physical Exam Vitals & Measurements T:??97.1?F?? TMIN:??97.1?F?? TMAX:??98.4?F?? HR:??83??(Peripheral)?? RR:??18?? BP:??170/99?? SpO2:??98%?? WT:??85??kg?? Constitutional: Alert, in no distress. Mental Status: Oriented to person, place and time. Gastrointestinal: Abdomen soft, no tenderness, non-distended. Skin:?? No petechiae or purpura.??No jaundice Musculoskeletal: No cyanosis or clubbing. No gross deformities. Normal range of motion. Psychiatric: Appropriate mood and affect?? Assessment/Plan ?? Dysphagia Suspected stroke ?? 58-year-old male with reported past medical history of diabetes, hypertension, seizure disorder, presented to the hospital with sudden onset dysarthria, dysphagia, facial numbness and dizziness on 04/10.?? Patient was evaluated by neurology with concern for stroke.?? CT imaging was negative.?? Given concern for prior stroke patient was already on dual antiplatelet therapy and this was continued.?? His MRI was delayed due to concern for compatibility with his hypoglossal nerve stimulator. ?? Patient has significant sudden onset persistent dysphagia to both solids and liquids which started on 04/10 at 8:30 AM.?? Before this he has never had any trouble swallowing either solids or liquids.?? MBS was abnormal with lack of UES opening and absent epiglottic inversion.?? There was also concern about a prominent CP bar for which GI was consulted.?? Given patient's history and imaging findings on MBS, the etiology of his dysphagia is most likely neurological.?? While the prominent CP bar might be contributing to his symptoms, he was doing perfectly fine before his neurological symptoms started on 04/10.?? Dilating his upper esophageal sphincter is unlikely to solve the underlying neurological issue and the absent epiglottic inversion.?? Furthermore dilation required holding his Plavix for 5 days which would not be preferable in setting of his stroke.?? At this time we recommend continuing workup for neurological etiologies including stroke workup with MRI if safe.?? GI will sign off.?? If his symptoms persist after discharge, patient can follow-up with GI through his PCP as an outpatient for an EGD. ? Thank you for referring this patient to the Division of Gastroenterology, [facility].?Please feel free to reach out with any questions or concerns. ?? The patient's case and management was discussed with Dr. Don Ambrocio MD Gastroenterology Fellow PGY5 Division of Gastroenterology, [facility] (The above document was created using 3DVista voice recognition software. As such, simulation developer errors may occur. Please contact the provider for additional questions and if clarification is needed.)?? Problem List/Past Medical History Ongoing Anxiety COVID-19 Depression Diabetes High cholesterol Hypertension EDIN (obstructive sleep apnea) Seizure disorder Status post insertion of hypoglossal nerve stimulator Type 2 diabetes mellitus Medications Inpatient 0.9% NaCL 1,000 mL, 1000 mL, IV Infusion Aspirin Supp, 300 mg, Rectally, Daily Depacon IVPB Dextrose 50% Inj Syringe (25Gm), 12.5 Gm, IV Push Slowly, Every 20 minutes, PRN Dextrose 50% Inj Syringe (25Gm), 25 Gm, IV Push Slowly, Every 15 minutes, PRN Glucagon Inj, 1 mg, Intramuscular, Once, PRN Glucose Gel, 15 Gm, By Mouth, Every 20 minutes, PRN Glucose Gel, 30 Gm, By Mouth, Every 20 minutes, PRN Heparin Inj, 5000 units= 1 mL, Subcutaneous Injection, 3 times a day Insulin LISPRO Sliding Scale, 1-5 units, Subcutaneous Injection, Every 6 hours Labetalol Inj, 10 mg= 2 mL, IV Push Slowly, Once, PRN NaCL 0.9% Flush, 3 mL, IV Push, Every 8 hours NaCL 0.9% Flush, 3 mL, IV Push, Every 8 hours, PRN Home aspirin 81 mg oral delayed release tablet, 81 mg, By Mouth, Daily atorvastatin 80 mg oral tablet, 80 mg= 1 tablet, By Mouth, Daily divalproex sodium 500 mg oral enteric coated tablet, 500 mg= 1 tablet, By Mouth, 2 times a day hydrochlorothiazide-lisinopril 12.5 mg-20 mg oral tablet, 1 tablet, By Mouth, Daily metFORMIN 1000 mg oral tablet, 1000 mg= 1 tablet, By Mouth, 2 times a day Plavix 75 mg oral tablet, 75 mg, By Mouth, Daily sertraline 25 mg oral tablet, 25 mg= 1 tablet, By Mouth, Daily topiramate 50 mg oral tablet, 50 mg= 1 tablet, By Mouth, Daily Trulicity Pen 1.5 mg/0.5 mL subcutaneous solution, 1.5 mg= 0.5 mL, Subcutaneous Injection, Every week Allergies Lactose??(Diarrhea) Social History Alcohol Use: Never. Employment/School Status: Employed. 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 Exercise Self assessment: Good condition. Substance Abuse Use: Never. Tobacco Use: Never (less than 100 in lifetime). Family History Aneurysm: Mother. Diabetes mellitus: Mother and Father. Stroke: Mother. * Don ALANIS, Daniela: PERFORM Event Display: Consultation Note Authored Date: [id number] date of service 04/12/24 ?I saw and evaluated the patient. Discussed with the fellow and agree with the findings and hector documented in the fellow's note.?pt with acute onset dysphagia barium images reviewed no need for inpt egd at this time, would not be able to dilate while on plavix anyway recommedn ongoing work up for other findings on mBS * Nikolai ALANIS, Hill Tinajero: PERFORM, MODIFY, MODIFY Event Display: Consultation Note Authored Date: [id number] Patient: ??DALTON COLLINS ? Age:??58 Years?Sex:??Male?:??1965?? Chief Complaint/Reason for Consult Stroke? History of Present Illness 58yo M with h/o HTN, poorly controlled DM, seizure d/o, depression presented to the ED this AM withacute onset of slurred speech, difficulty swallowing, and dizziness that started when he woke up this AM. NIH 1 was documented. His BP was markedly elevated 219/133. CT angio showed distal left vertebral occlusion vs. severe stenosis. Patient can not have an MRI due to hypoglossal nerve stimulator for sleep apnea. He is in the ED awaiting bed placement. He denies any focal weakness, sensory deficits, or visual deficits. He lives with his parents in [place] and is independent with ADLs and mobility at baseline.?? Review of Systems 14 point review of systems negative except as noted above in HPI. Physical Exam Vitals & Measurements HR:??93??(Peripheral)?? RR:??15?? BP:??172/112?? SpO2:??100%?? Reckeched BP 195/110--notified hospitalist Gen: Alert, oriented x 3 in NAD HEENT: no JVD, PERRL CV: Reg, no murmurs Chest: CTA bilat Abd: +BS, soft, NT Exts: trace pedal edema Neuro: CN II-XII intact MMT: RUE:?LUE: Delt?5/5?Delt?5/5 Bi?5/5?Bi?5/5 WE? 5/5? WE? 5/5 Tri? 5/5? Tri? 5/5 FF? 5/5? FF?5/5 ?? RLE:? LLE: HF? 5/5? HF? 5/5 Quad?? 5/5? Quad?? 5/5 HS? 5/5? HS? 5/5 DF? 5/5? DF? 5/5 PF? 5/5? PF?5/5 Sensory: impaired left face; no extinction on DSS DTRs: biceps and patella 1+ bilat Coordination: intact F to N bilat Pronator Drift: negative ?? Speech/Language: no dysarthria, no dysphonia. Able to name and repeat, fluent. Cog-basic insight intact. Follows multistep commands without difficulty. ?? Mobility: bed mobility indep, sit to stand indep, ambulated 100ft in hallway independent. Swallow: ? Purees: masticated without difficulty but unable to propel bolus past the oral cavity and coughed up immediately. ? Solids: did not attempt ? Liquids: did not attempt Assessment/Plan 58yo M??with h/o??poorly controlled HTN, DM, seizure d/o admitted with acute onset of oropharyngealdysphagia. BP markedly elevated. Notified hospitalist about his ongoing high BP. ? Recommendations: ?? Activity:??Encourage ambulatation with supervision Bowel Regimen:??Monitor on current regimen Bladder:??Voiding Normally. Cognition/psychopharmacology:??likely at baseline.?? DVT prophylaxis:??Defer to primary ?? Neurology:??Appreciate Neurology Note. Pain Management:??Appears comfortable.?? Spasticity:??None ?? Swallow: Should remain NPO strict; speech to follow up tomorrow. ?? Current rehab treatment & further recommendations: Occupational Therapy:??Not needed. Physical Therapy:??Not needed Speech Therapy:??Ordered ?? Disposition: Home with outpatient services. ?? HCP:??Has HCP in [facility] ?? Problem List/Past Medical History Ongoing Anxiety COVID-19 Depression Diabetes High cholesterol Hypertension EDIN (obstructive sleep apnea) Seizure disorder Status post insertion of hypoglossal nerve stimulator Type 2 diabetes mellitus Procedure/Surgical History No qualifying data available. Home Medications Aspirin: 81 mg, By Mouth, Daily Atorvastatin: 80 mg = 1 tablet, By Mouth, Daily Clopidogrel: 75 mg, By Mouth, Daily Divalproex Sodium: 250 mg = 1 tablet, By Mouth, 2 times a day dulaglutide: 1.5 mg = 0.5 mL, Subcutaneous Injection, Every week, on Monday Hydrochlorothiazide-Lisinopril: 1 tablet, By Mouth, Daily Metformin: 500 mg = 1 tablet, By Mouth, 2 times a day Sertraline: 25 mg = 1 tablet, By Mouth, Daily Hospital Medications Medications (3) Active SCHEDULED: (1) NaCl 0.9% Flush 3ml (NaCL 0.9% Flush) ??3 mL, IV Push, Every 8 hours CONTINUOUS: (1) NaCL 0.9% (1000 mL) Cont IV 1,000 mL (0.9% NaCL 1,000 mL) ??1,000 mL, IV Infusion, 100 mL/hr PRN: (1) NaCl 0.9% Flush 3ml (NaCL 0.9% Flush) ??3 mL, IV Push, Every 8 hours Lab Results PM&R Labs ?? Tox Screen?? WBC: 5.1 k/mm3 (04/10/24) Valproic Level:??38.8 mg/L??Low (06/01/23) Platelet Count: 177 k/mm3 (04/10/24) ?? Sodium: 134 mmol/L (04/10/24) ?? BUN: 17 mg/dL (04/10/24) ?? Creatinine-Blood: 0.79 mg/dL (04/10/24) ?? Valproic Level:??38.8 mg/L??Low (06/01/23) ?? AST (SGOT): HEMOLYZED (04/10/24 13:08:00) AST (SGOT): 15 units/L (05/30/23 06:16:00) ALT (SGPT): 23 units/L (05/30/23 06:16:00) ALT (SGPT): 30 units/L (05/28/23 20:09:00) * Tj Pierson MD: PERFORM, MODIFY, SIGN, VERIFY, MODIFY, SIGN Event Display: Consultation Note Authored Date: Patient: DALTON COLLINS Age: 58 years Sex: Male : 1965 Associated Diagnoses: None Author: Tj Pierson MD Visit Information Visit Type Type: Neurological consultation, CC; speech disturbance. History of Present Illness 58 rhm with PMH of hypertension, DM type II, not on insulin, anxiety/depression, seizure disorder (atypical seizures), is presenting with dysarthria and dysphagia and mild dizziness today, LKW 8 AM at 830 AM he tried dot eat breakfast felt he had dysphagia not specifically to liquids more than solids then drove to 's ex house where his dysphagia became worse /was more noticeable with diff swallowing own secretion and came to ER where he was noted to have uncontrolled hypertension and difficulty with swallowing saliva but no dysphonia or dysarthria by exam ;he has subtle right FD but no focalweakness and given LKW at 8AM not candidate for lytics with low NIHSS and able to repeat happy hippo potamus able to name and follow commands and able to ddo pataka and able to do no ifs ands or buts without dysphonia but did end up coughing to sputum. Back in May 2023 admitted for dizziness, noted to have uncontrolled hypertension and uncontrolled hyperglycemia at that time with covid+. MRI could not be done; comapred todays scans with CTH CTA findings of may and the left vert ends in likely pica and then becomes atretic which is similar to images seen today, no LVO and hence no NEV needs today. Past Medical History Problem list All Problems Anxiety / 09702035 / Confirmed COVID-19 / U07.1 / Confirmed Depression / 98207680 / Confirmed Diabetes / 093246353 / Confirmed High cholesterol / 04583039 / Confirmed Hypertension / 3665821541 / Confirmed EDIN (obstructive sleep apnea) / 069117230 / Confirmed Status post insertion of hypoglossal nerve stimulator / 1113397326 / Confirmed Seizure disorder / 596953243 / Confirmed Type 2 diabetes mellitus / 693766901 / Confirmed Allergies Allergic Reactions (Selected) Severity Not Documented Lactose- Diarrhea. Current medications (Selected) Inpatient Medications Ordered 0.9% NaCL 1,000 mL: 1,000 mL, Infusion, IV Infusion, 1,000 mL, 100 mL/hr, Infuse over 10 hr, Continue until D/C'd Unless duration specified, STAT, 04/10/24 12:28:00 EST, 1.93, m2 Prescriptions Prescribed Plavix 75 mg oral tablet: 75 mg, By Mouth, Daily, # 21 tablet, Refills 0, Tot. Refills 0, Maintenance, 06/02/23 12:26:00 EST, Route to Pharmacy Electronically, [id number], Partial fill upon patient request if the prescription is for a schedule II opioid drug., 172, cm,... aspirin 81 mg oral delayed release tablet: 81 mg, By Mouth, Daily, # 180 tablet, Refills 0, Tot. Refills 0, Maintenance, 06/02/23 12:26:00 EST, Route to Pharmacy Electronically, [facility], Partial fill upon patient request if the prescription is for a schedule II opioid drug., 172, cm... metFORMIN 500 mg oral tablet: 1 tablet = 500 mg, By Mouth, 2 times a day, # 60 tablet, 0 Refills, Maintenance, 06/02/23 12:27:00 EST, Tablet, [facility], Partial fill upon patient request if the prescription is for a schedule II opioid drug., 172, cm, 06/02/23 8:15:00 EST,... Documented Medications Documented Trulicity Pen 1.5 mg/0.5 mL subcutaneous solution: 0.5 mL = 1.5 mg, Subcutaneous Injection, Every week, on Monday, 0 Refills, Maintenance, 06/20/18 15:21:21 EST, Solution atorvastatin 80 mg oral tablet: 1 tablet = 80 mg, By Mouth, Daily, # 90 tablet, 0 Refills, Maintenance, 05/28/23 20:54:00 EST, Tablet, Partial fill upon patient request if the prescription is for a schedule II opioid drug. divalproex sodium 250 mg oral enteric coated tablet: 1 tablet = 250 mg, By Mouth, 2 times a day, 0 Refills, Maintenance, 05/28/23 21:02:00 EST, [facility] Tablet, Partial fill upon patient request if the prescription is for a schedule II opioid drug. hydrochlorothiazide-lisinopril 12.5 mg-20 mg oral tablet: 1 tablet, By Mouth, Daily, # 30 tablet, 0Refills, Maintenance, 05/28/23 20:54:00 EST, Tablet, Partial fill upon patient request if the prescription is for a schedule II opioid drug. sertraline 25 mg oral tablet: 1 tablet = 25 mg, By Mouth, Daily, # 30 tablet, 0 Refills, Maintenance, 05/28/23 20:54:00 EST, Tablet, Partial fill upon patient request if the prescription is for a schedule II opioid drug. Surgical History Procedure/Surgical Profile No active procedure history items have been selected or recorded. No Surgery Data Found Preop Diagnosis PostOp DiagnosisNo Surgery Data Found ImplantsNo Surgery Data FoundNo Surgery Data FoundNo Surgery Data Found Social History Social History Alcohol Details: Use: Never. Employment/School Details: Status: Employed. 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 Exercise Details: Self assessment: Good condition. Substance Abuse Details: Use: Never. Tobacco Details: Use: Never (less than 100 in lifetime). . Family History Mother: Aneurysm; Diabetes mellitus; Stroke Father: Diabetes mellitus Review of Systems Review of Systems Significant: ALL OTHER SYSTEMS REVIEWED & NEGATIVE. Physical Examination Vital Signs Vitals: Vitals : VITAL SIGNS SECTION 04/10/2024 12:50 EST Temperature Route Oral Pulse Rate 104 bpm H Respiratory Rate 15 br/min L Systolic Blood Pressure 219 mm Hg H Diastolic Blood Pressure 133 mm Hg H Blood pressure sites Arm, left Mean Arterial Pressure 162 mm Hg Pulse Pressure 86 mm Hg Oxygen Saturation 100 % Mode of Delivery (Oxygen) Room air . Physical Examination Neurological: mental status: Awake, oriented , language : no aphasia. Cranial nerves: extra ocular movements intact, facial musculature subtle right [facility] type NL decreaseon right/ facial asymmetry, uvula midline, hearing normal bilateral, neck musculature 5/5,no nsyatgmus, tongue protrudes midline, visual maldonado intact to confrontation testing. Motor exam: strength RUE 5/5, LUE 5/5, RLE: 5/5, LLE:5/5, tone normal, tremor none. Cerebellar: RUE: intact finger to nose, LUE: intact finger to nose RLE: intact heel knee luis; LLE: intact heel knee luis Sensory exam: light touch normal except tingling left cheek Neglect -Visual: no extinction to double simultaneous stimulation normal. -Sensory: double simultaneous stimulation normal. Stance and gait:?? deferred NIH Stroke Scale Level of Consciousness for Stroke Scale : Alert Response Month/Age : Answers both questions correctly Response Open/Close Eyes : Performs both tasks correctly Best Gaze : Normal Visual : No visual loss Facial Palsy : Minor paralysis Motor Function Left Arm : No drift Motor Function Right Arm : No drift Motor Function Left Leg : No drift Motor Function Right Leg : No drift Limb Ataxia : Absent Sensory : Normal; no sensory loss Best Language : No aphasia Dysarthria NIH Stroke Scale : Normal Extinction and Inattention : No abnormality NIH Stroke Scale Score : 1 Results Review General results Lab / Imaging Results Laboratory : LABORATORY 04/10/2024 12:27 EST Glucose, POC 238 mg/dL H Imaging : RADIOLOGY 04/10/2024 12:[address] Head-Hyper Acute Stroke CT Head-Hyper Acute Stroke CT Angio Neck Hyperacute Stroke RESULT: CT Angio Neck Hyperacute Stroke (Preliminary) CT Angio Head Hyperacute Stroke CT Angio Head Hyperacute Stroke (Preliminary) Impression and Plan COMPREHENSIVE PLAN Impression: acute dysphagia and dizziness (non vertigo) DD: stroke vs atypical NM process vs other ? hypoglossal stim leading to this cannot be ruled out HTN urgency Chronic left vert narrowing ends in PICA no role for stent or surgery([facility]) Plan Admit for tele neurochecks per unit std ASA 300mg rectal until able to swallow resume Plavix 75mg once able to swallow Rehab considered: swallow screen failed ordered If cannot ascertain may need further sleep vs ENT input on the hypoglossal N stim to see if dysfunctional BP control below systolic immediate under 200 unless ecg changes or DEEPA then no needed for permissive HTN, after 24 hr aim for SBP below 180, 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 liam HERNANDEZ MD staff and patient and Stroke education given to patient work up explained to [facility] staff if any new changes, pager [phone] Stroke Management TPA Considered DVT prophylaxis Sub Q heparin NPO Until swallow eval Antiplatelet therapy Aspirin Plavix Lipid profile Note * Meagan Rai RN: PERFORM Event Display: Discharge/Transfer Note Hospital Authored Date: [id number] Nursing Discharge Note Entered On: 04/19/2024 17:02 EST Performed On: 04/19/2024 16:56 EST by Meagan Rai RN Nursing Discharge Note 2 Discharge Time : 04/19/2024 16:25 EST Discharge Level of Care at Discharge : Homehealth/VNA Discharge VNA/Hospice/Home Care(v001) : [facility] [phone] Discharge Medical [employer](v001) : [facility] Patient Left Unit Via : Ambulatory Patient Accompanied Off Unit with : Responsible adult DC Instructions Provided & Signed by Pt : Yes Patient Understands D/C Instructions : Yes Patient Instructions Discharge Signed : Yes Discharge Comments : Pt R and L forearm IV removed. Tips intact sterile dsg applied. Pt ambulated off unit with all belonging. pt verbalized understanding of discharge instructions. Pt verbalized anddemostrated understanding of PEG tube feeding. Did Pt have Specialty Bed or Wound Vac : Yes Meagan Rai RN - 04/19/2024 16:56 EST * Deepak Rodrigues MD: PERFORM Event Display: Discharge/Transfer Note Hospital Authored Date: [id number] Patient: ??DALTON COLLINS ? Age:??58 Years?Sex:??Male?:??1965?? Patient Information Discharge Location: A Primary Care Physician: Eunice Wagner NP Admit Date/Time: 04/12/2024 12:54 Discharge Disposition Discharge Disposition: Home with Home Health Discharge Diagnosis Dysphagia (R13.10) Speech complaints (R47.9) Paresthesia (R20.2) Hyperlipidemia (E78.5) Uncontrolled hypertension (I10) Depression (F32.A) Anxiety (F41.9) Seizure disorder (G40.909) EDIN (obstructive sleep apnea) (G47.33) Status post insertion of hypoglossal nerve stimulator (Z96.82) Type 2 diabetes mellitus (E11.9) Dizziness (R42) Oropharyngeal dysphagia (R13.12) Cerebrovascular accident (CVA), unspecified mechanism (I63.9) 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) Colon carcinoma metastatic to multiple sites (C18.9) Acute CVA (cerebrovascular accident) (I63.9) _ Discharge Medications Amlodipine (amLODIPine 5 mg oral tablet)?5?Milligram?G Tube?Daily?for 30?Days Aspirin (aspirin 81 mg oral tablet, chewable)?81?Milligram?G Tube?Daily?for 30?Days Atorvastatin (atorvastatin 80 mg oral tablet)?1?tab(s)?80?Milligram?By Mouth?Daily Clopidogrel (Plavix 75 mg oral tablet)?75?Milligram?G Tube?Daily?for 30?Days Divalproex Sodium (divalproex sodium 500 mg oral enteric coated tablet)?1?tab(s)?500?Milligram?By Mouth?2 times a day?Via G tubewith food dulaglutide (Trulicity Pen 1.5 mg/0.5 mL subcutaneous solution)?0.5?Milliliter?1.5?Milligram?Subcutaneous Injection?Every week?on Monday Hydrochlorothiazide-Lisinopril (hydrochlorothiazide-lisinopril 12.5 mg-20 mg oral tablet)?1?tab(s)?By Mouth?Daily?G Tube Metformin (metFORMIN 1000 mg oral tablet)?1?tab(s)?1,000?Milligram?By Mouth?2 times a day?G Tube Senna (Senna 8.6 mg oral tablet)?17.2?Milligram?2?tab(s)?G Tube?Daily?as needed?for 7?Days?as needed for constipation Topiramate (topiramate 50 mg oral tablet)?1?tab(s)?50?Milligram?By Mouth?Daily?G Tube ? Quality Measures Stroke Quality Measures:?Discharged on Antithrombotic Therapy:??Antithrombotic prescription ? Tube Feedings Product: Carbohydrate Controlled Route: by G-Tube Bolus Frequency: 4 times a day Last Rate: ? Medications Started Amlodipine (amLODIPine 5 mg oral tablet)?5?Milligram?G Tube?Daily?for 30?Days?? Clopidogrel (Plavix 75 mg oral tablet)?75?Milligram?G Tube?Daily?for 30?Days?? Senna (Senna 8.6 mg oral tablet)?17.2?Milligram?2?tab(s)?G Tube?Daily?as needed?for 7?Days?as needed for constipation?? Medications Discontinued None Doses Changed None Future Appointments Jun. 2024 10:30 AM EDT ?? With: Jana Boyer MD, Adri Where: [facility] [address] [facility] 3rd Floor, [address] [place] [id number] Status: Pending Objective 58 years old male with medical history of?EDIN on Inspire, type 2??DM, HTN, seizure disorder ([id number] Q12hr) who presented to [facility] with multiple complaints of dysarthria, dysphagia (unable to eat breakfast or handle oral secretions), also left facial numbness and dizziness described as room spinning with concerns for Acute CVA.??He had a??modified barium swallow evaluation suggestive of??a neurogenic cause for dysphagia and while the esophageal bar may be impeding the swallow it is unlikely to cause the sudden onset of dysphagia.?? MRI confirming acute infarct in the posterior lateral leftmedulla. S/P PEG tube placement by GI team 04/18/24. Patient is ready for discharge now. ? Paresthesia (R20.2) Hyperlipidemia (E78.5) Acute CVA (cerebrovascular accident) (I63.9) - Presumed Evaluated by neurology team in the ED, not a candidate for lytics, no LVO and hence no NEV Repeat CTH non acute. MRI showing acute infarct in the posterior lateral left medulla, 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. No mass effect or hemorrhage. Continue DAPT (ASA 81 mg, Clopidogrel 75 mg) daily??per neuro team. GI team okay to start Plavix.?? Continue Statin.?? Follow up as outpatient in the stroke clinic. ?? Dysphagia (R13.10) S/P PEG tube placement by gastroenterology team (Dr. Ivett Corcoran, 04/18/2024) No restriction on antiplatelets or AC froim GI standpoint Recommend against pulling out the PEG tube before 3 months. ? Uncontrolled hypertension (I10): Continue home?? Hydrochlorothiazide- Lisinopril. ??Started on amlodipine.?? Monitor BP as outpatient and adjust dosing as needed. Anion gap metabolic acidosis likely 2/2 starvation ketosis: Resolved. Anxiety (F41.9), Depression (F32.A): No longer taking sertraline. Seizure disorder (G40.909): Continue divalproex??and topiramate. 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 Measurements?? Height: 173 cm (04/18/24) Weight: 85 kg (04/18/24) Dry Weight: 85 kg (04/12/24) Body Mass Index:??28.4 kg/m2??High (04/18/24) ? Vital Signs?? Temperature: 97.3 DegF (04/19/24 11:00:00) Temperature Route: Oral (04/19/24 11:00:00) Pulse Rate: 74 bpm (04/19/24 11:00:00) Heart Rate Monitored: 87 bpm (04/18/24 17:46:00) Respiratory Rate: 18 br/min (04/19/24 11:00:00) Systolic Blood Pressure: 123 mm Hg (04/19/24 11:00:00) Diastolic Blood Pressure: 77 mm Hg (04/19/24 11:00:00) Blood pressure sites: Arm, right (04/19/24 11:00:00) Mean Arterial Pressure: 102 mm Hg (04/19/24 04:30:00) Pulse Pressure: 46 mm Hg (04/19/24 11:00:00) Oxygen Saturation: 97 % (04/19/24 11:00:00) Liters per Minute: 5 L/min (04/18/24 17:33:00) Mode of Delivery (Oxygen): Room air (04/19/24 11:00:00) Early Warning Score: 2 (04/19/24 11:43:31) ? . Physical Exam Constitutional: Alert, in no acute distress. Mental Status: Oriented to person, place and time. Head: Normocephalic. Eyes: Pupils are equal, round and reactive to light.?? Ear, Nose and Throat: Oropharynx clear, mucous membranes moist.??N?? Neck: Supple, Full range of motion. Respiratory: Clear to auscultation and percussion. No wheezing, rales or rhonchi. Cardiovascular: S1 S2 regular. No murmurs, rubs or gallops. Gastrointestinal: Abdomen soft, non-tender, non-distended. Normal bowel sounds. G tube in place, nosigns of erythema or infection.?? Neurologic: Cranial nerves II-XII grossly intact. No focal neurological deficits?? Skin: No rashes or lesions. No petechiae or purpura. Musculoskeletal: No cyanosis or clubbing. No gross deformities.?? Surgical Procedures Insertion Percutaneous Endoscopic Gastro 04/18/2024 16:41 [facility] GI Pending Results Add On Lab Order ordered on 04/10/2024 Add On Lab Order ordered on 04/11/2024 Urinalysis w/hold for Urine Culture ordered on 04/10/2024 Patient Education Titles Web[employer]ite Patient Education - Clopidogrel?? [employer] Patient Education - Amlodipine?? [employer] Patient Education - The F.A.S.T. Way to Diagnose a Stroke?? Web[employer] Patient Education - Discharge Instructions for Stroke?? Follow-Up Appointments Added Follow Up ?Time Frame ?Comments Bernard SOSA, Eunice?1 to 2 weeks Adri Mckeon MD?07/04/2024 10:30 Patient Instructions You will go home with the following NEW medications: Amlodipine (amLODIPine 5 mg oral tablet)?5?Milligram?G Tube?Daily?for 30?Days?? Clopidogrel (Plavix 75 mg oral tablet)?75?Milligram?G Tube?Daily?for 30?Days?? Senna (Senna 8.6 mg oral tablet)?17.2?Milligram?2?tab(s)?G Tube?Daily?as needed?for 7?Days?as needed for constipation? The following medications were CHANGED : ??None ? The following medications were?? STOPPED: ??None ? Activity changes: -?As tolerated. - I??have sent prescription for??1 month??except for senna for 7 days. ??[facility] for further [facility]ills. ? Who to follow up with after being discharged from the hospital: -??Please follow up at your primary??care doctor's office in 1-2 weeks. Please make appointment with the clinic. - Please follow up with neurologist as outpatient. Please call office to schedule appointment. ?? Reasons to immediately return to the emergency room or call 911: - You pass out or faint. - You develop any acute weakness or numbness in any part of the body. - You develop any acute??speech difficulty, swallowing problem,??vision problem.? - You have any other concerns that you think require emergency management. Post Discharge Care Diet: ??Tube feeding ? -??Carbohydrate Controlled 1.2kcal/ml w/ same bolus goal of 420ml QID to provide 2016kcals, 101g protein, 196g CHO, 27g fiber, 100% RDI's and 1352ml H2O - Recommend starting first 2 (of 4) daily boluses at 240ml and if patient tolerating can advance togoal bolus of 420ml QID?? - Recommend continuing w/ 130ml water flush before and after each bolus for additional 1040ml and total of 2392ml H2O ? Discharge ?04/19/24 14:24:00 EST ?Order Comment:?? Discharge Prescriptions ?ePrescribed, 04/19/24 14:24:00 EST ?Order Comment:?? Home Health Face to Face *Denotes mandatory maldonado ?? *I certify that this patient is under my care and that I or an allowed non- physician working with me had a face to face encounter with the patient on this date:??04/19/2024 14:27 ?? 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 *Select the indications for the discipline/s that are being arranged for this patient. Nursing (select all that apply): [_] None [_] Medication management (reconciliation, teaching)?? [x_] Chronic disease management?? [_] Wound care and treatment?? [x_] Home safety evaluation [_] Administer SQ/IM/IV medications?? [_] Cath care?? [_] Drain care?? [_] Trach or GT care?? Other TUBE FEEDING VIA PEG. Occupation Therapy (select all that apply): [_] None [_] ADL Management [_] Fall prevention training [_] Energy conservation [_] Cognitive training Other _ Physical Therapy (select all that apply): [_] None [_] Functional mobility training [_] Home exercise program to strengthen [_] Increase ROM?? [_] Falls prevention training [_] Home maintenance program for chronic disease Other _ Speech Therapy (select all that apply): [_] None [_] Swallow evaluation and training [_] Speech and language training [_] Cognitive training to process, organize, and/or recall information Other _ ?? *Homebound due to (select all that apply): [x_] Inability to leave home without assistance/supervision [x_] Inability to ambulate without assistance [_] Pain [_] Decreased strength and endurance [_] Unsteady gait [_] Severe SOB and fatigue [_] Impaired transfers [_] Inability to negotiate stairs [_] Limited weight bearing [_] Mental status change? *Physician Signature: Deepak Rodrigues MD? Results Discharge Labs BLOOD BANK Blood Type AB Positive ()?? 04/10/2024 12:28 Antibody Screen Negative ()?? 04/10/2024 12:28 ?? BLOOD COUNT & DIFF WBC 5.7 k/mm3 ()?? 04/16/2024 00:21 RBC 5.71 m/mm3 ()?? 04/16/2024 00:21 Hgb 16.3 Gm/dL ()?? 04/16/2024 00:21 Hct 46.3 % ()?? 04/16/2024 00:21 MCV 81.1 femtoliters ()?? 04/16/2024 00:21 MCH 28.5 pg ()?? 04/16/2024 00:21 MCHC 35.2 Gm/dL ()?? 04/16/2024 00:21 Platelet Count 135 k/mm3 (Low)?? 04/16/2024 00:21 RDW-SD 38.5 femtoliters ()?? 04/16/2024 00:21 MPV 10.2 femtoliters ()?? 04/16/2024 00:21 Nucleated RBC (Automated) 0.0 #/100 WBC'S ()?? 04/16/2024 00:21 Abs. NRBC 0.0 k/mm3 ()?? 04/16/2024 00:21 Abs. Neut 2.4 k/mm3 ()?? 04/11/2024 17:23 Abs. Lymph 1.6 k/mm3 ()?? 04/11/2024 17:23 Abs. [place] 0.3 k/mm3 (Low)?? 04/11/2024 17:23 Abs. Eo 0.1 k/mm3 ()?? 04/11/2024 17:23 Abs. Baso 0.0 k/mm3 ()?? 04/11/2024 17:23 Neut % 53.7 % ()?? 04/11/2024 17:23 Lymph % 35.6 % ()?? 04/11/2024 17:23 [place] % 6.7 % ()?? 04/11/2024 17:23 Eos % 3.1 % ()?? 04/11/2024 17:23 Baso % 0.7 % ()?? 04/11/2024 17:23 Imm Gran 0.2 % ()?? 04/11/2024 17:23 Abs. Imm Gran 0.0 k/mm3 ()?? 04/11/2024 17:23 ?? CARDIAC High Sensitivity Troponin (HSTnT) 9 ng/L ()?? 04/10/2024 15:09 ? CHEM GENERAL Sodium 142 mmol/L ()?? 04/19/2024 06:31 Potassium 4.9 mmol/L ()?? 04/19/2024 06:31 Chloride 106 mmol/L ()?? 04/19/2024 06:31 Bicarbonate Level 21 mmol/L (Low)?? 04/19/2024 06:31 Anion Gap 15 ()?? 04/19/2024 06:31 Glucose Level 202 mg/dL (High)?? 04/19/2024 06:31 Glucose, POC 221 mg/dL (High)?? 04/19/2024 11:28 Hemoglobin A1C (Monitoring) 8.2 % (High)?? 04/10/2024 13:08 BUN 25 mg/dL (High)?? 04/19/2024 06:31 Creatinine-Blood 0.96 mg/dL ()?? 04/19/2024 06:31 Estimated GFR Creatinine 92 ML/MIN/1.73 M2 ()?? 04/19/2024 06:31 Calcium 9.5 mg/dL ()?? 04/19/2024 06:31 Phosphorus 4.5 mg/dL ()?? 04/19/2024 06:31 Magnesium 2.0 mg/dL ()?? 04/19/2024 06:31 Protein, Total 7.5 Gm/dL ()?? 04/19/2024 06:31 Albumin 4.0 Gm/dL ()?? 04/19/2024 06:31 AG Ratio 1.1 ()?? 04/19/2024 06:31 Alkaline Phosphatase 68 units/L ()?? 04/19/2024 06:31 AST (SGOT) 30 units/L ()?? 04/19/2024 06:31 ALT (SGPT) 35 units/L ()?? 04/19/2024 06:31 Bilirubin, Total 0.6 mg/dL ()?? 04/19/2024 06:31 ? ENDOCRINE/TUMOR MARKER TSH 1.01 uIU/mL ()?? 04/11/2024 01:16 ? HEME OTHER Hold Lavender Top SPECIMEN DISCARDED AFTER 24 HOURS. ()?? 04/15/2024 00:46 ? LIPID STUDIES Cholesterol 231 mg/dL (High)?? 04/11/2024 01:16 Triglycerides 270 mg/dL (High)?? 04/11/2024 01:16 HDL Cholesterol 32 mg/dL (Low)?? 04/11/2024 01:16 LDL Cholesterol 145 mg/dL (High)?? 04/11/2024 01:16 Non HDL Cholesterol 199 mg/dL (High)?? 04/11/2024 01:16 ? UA/URINALYSIS Appear/Color, Urine COLORLESS ()?? 04/10/2024 13:49 Specific [place], Urine 1.039 (High)?? 04/10/2024 13:49 pH, Urine 6.5 ()?? 04/10/2024 13:49 Albumin, Urine NEGATIVE ()?? 04/10/2024 13:49 Glucose, Urine 4+ (Abnormal)?? 04/10/2024 13:49 Ketones, Urine 1+ (Abnormal)?? 04/10/2024 13:49 Bilirubin, Urine NEGATIVE ()?? 04/10/2024 13:49 Hemoglobin, Urine NEGATIVE ()?? 04/10/2024 13:49 Nitrite, Urine NEGATIVE ()?? 04/10/2024 13:49 Leukocyte, Urine NEGATIVE ()?? 04/10/2024 13:49 Urobilinogen NORMAL mg/dL ()?? 04/10/2024 13:49 WBC's, Urine NONE SEEN /HPF ()?? 04/10/2024 13:49 RBC's, Urine NONE SEEN /HPF ()?? 04/10/2024 13:49 Mucus SLIGHT /LPF ()?? 04/10/2024 13:49 Hold Urine Culture Testing available 48 hours from time of collection. ()?? 04/10/2024 13:49 ? URINE OTHER Est Creatinine Clearance 82.44 mL/min ()?? 04/19/2024 07:48 ? 35 minutes spent on discharge * Erin Henriquez RN: PERFORM, SIGN, VERIFY Event Display: Case Management Discharge Plan Authored Date: [id number] Patient: DALTON COLLINS Age: 58 years Sex: Male : 1965 Associated Diagnoses: None Author: Erin Henriquez RN Discharge Plan Case Management Discharge Plan : Case Management Discharge Plan Data 04/19/2024 11:55 EST Discharge Level of Care at Discharge Homehealth/VNA Discharge VNA/Hospice/Home Care [facility] [phone] Discharge Medical Equipment Companies [facility] Discharge Transportation Arranged Niece Name of Agency #1 [facility] Name of Agency #1 [facility] Service Categories #1 Long Term Service Comments #1 [facility] will provide a Skilled Nurse and they will see you tomorrow. Service Categories #2 Other: Tube Feeds Service Comments #2 [facility] will provide your Tube feeds and your tube feeds will be delivered by [employer]. Name of Person Notified of Transfer Patient * Fredi JEAN, Meagan: PERFORM, MODIFY Event Display: Patient Education/Instruction Authored Date: [id number] Inpatient Adult Discharge Instructions. [address] [address] Name: DALTON COLLINS : 1965?? Visit: 04/12/2024 12:54?? Current Date: 04/19/2024 15:48 ?? Account: [id number]?? Inpatient Adult Discharge Instructions We would like to thank you for allowing us to assist you with your healthcare needs. The following includes patient education materials and information regarding your injury/illness. Our entire staffstrives to provide an excellent experience for our patients and their families. PLEASE ENSURE YOU FOLLOW-UP PER THE INSTRUCTIONS BELOW! ?? YOUR OPINION IS IMPORTANT TO US! Please complete the survey you may receive by mail or email. Your feedback will be used to make improvements to the healthcare experiences of our patients and their families. Surveys are administered by [employer] ?? If further treatment with your primary care physician or another doctor is recommended, it is important for you to keep the appointment. Call your primary care physician or return to the Emergency Department immediately if your condition worsens, fails to improve, or new symptoms develop. If you need to find a doctor, you can call [facility] for a referral at [phone] or toll free at [phone] [email or web address] ([phone]) or log in to [email or web address].. ?? [facility], in keeping with [facility] guidance, no longer requires face masks for staff, patientsor visitors in most situations. Similiar to time spent indoors at other locations, there is the chance that you were exposed to repiratory viruses during your time with us (such as flu or COVID-19). If you develop symptoms concerning for a viral respiratory infection, please seek testing (and treatment if indicated) from your medical provider or home test kit. ?? You can view and manage your care through the patient portal or by using a health care cheryl of your choosing. [employer] is a website that allows you to securely view your medical information including your hospital discharge summary, office visit summaries, medications and follow-up visits. You can also request appointments, renew medications, and request access to your medical information using a health care cheryl of your choosing, or just ask a question. You can enroll at [email or web address] or register during your next office visit. You have been discharged from [facility], Patient Care Unit: D5A??. If you have any questions regarding these instructions, including results of studies pending, afteryou leave, please call us and we will be happy to assist you 07/11. [facility] Your Care Team Attending Physician Deepak Rodrigues MD?? Consulting Providers Deepak Rodrigues MD?? Discharging Providers Deepak Rodrigues MD Reason for Your Visit Stroke??? Your Diagnosis Speech complaints Paresthesia Hyperlipidemia Uncontrolled hypertension Depression Anxiety Seizure disorder EDIN (obstructive sleep apnea) Status post insertion of hypoglossal nerve stimulator Type 2 diabetes mellitus Dizziness Oropharyngeal dysphagia Cerebrovascular accident (CVA), unspecified mechanism Stenosis of left vertebral artery Acute CVA (cerebrovascular accident) Colon carcinoma metastatic to multiple sites Tests Performed Below is a partial list of the tests performed during your hospitalization. You may have had other tests and procedures not included in this list. Please discuss all test results with your provider. AST Basic Metabolic Panel BUN CBC CBC w/ Differential Comprehensive Metabolic Panel Creatinine Electrolytes Glucose Level GLUCOSE POC HEMOGLOBIN A1C High Sensitivity Troponin T HOLD LAVENDER TUBE Lipid Panel Magnesium Level Phosphorus Level POTASSIUM Troponin T, High Sensitivity TSH WITH REFLEX TO FT4 Type and Screen Urinalysis w/hold for Urine Culture AP Chest Brain MRI W/O Contrast CT Angio Head Hyperacute Stroke CT Angio Neck Hyperacute Stroke CT Head-Hyper Acute Stroke CT Head/Brain W/O Contrast XR Chest 2 Views Frontal and Lat XR Modified Barium Swallow W/ Speech RAD AST?? Add On Lab Order?? BUN?? Basic Metabolic Panel?? CBC?? CBC w/ Differential?? CT Angio Head Hyperacute Stroke?? CT Angio Neck Hyperacute Stroke?? CT Head-Hyper Acute Stroke?? CT Head/Brain W/O Contrast?? Comprehensive Metabolic Panel?? Creatinine?? Electrolytes?? Glucose Level?? Glucose POC?? Hemoglobin A1C (Monitoring) (HEMOGLOBIN A1C)?? High??Sensitivity??Troponin T (Troponin T, High Sensitivity)?? Hold Lavender Top Tube (HOLD LAVENDER TUBE)?? Lipid Panel?? MRI Brain W/O Contrast (Brain MRI W/O Contrast)?? Magnesium Level?? Phosphorus Level?? Potassium Level (POTASSIUM)?? TSH with T4 Reflex (Adults Only) (TSH WITH REFLEX TO FT4)?? Type and Screen?? Urinalysis w/hold for Urine Culture?? Chest 2 Views Frontal and Lat?? Chest Single Frontal View (AP Chest)?? Modified Barium Swallow W/ Speech (Radio (XR Modified Barium Swallow W/ Speech RAD)?? Primary Care Provider See [place] DO? Advance Directive Health Care Proxy on File Yes - Health Care Proxy Discharge Vitals Temperature: 98.1 DegF Height: 173 cm Pulse Rate: 81 bpm Weight: 85 kg Respiratory Rate: 18 br/min Body Mass Index:??28.4 kg/m2??High Systolic Blood Pressure: 133 mm Hg Body surface area: 2.02 Diastolic Blood Pressure: 84 mm Hg ?? Oxygen Saturation: 96 % ?? Studies Pending All studies ordered during this hospital stay have been completed unless listed below. Please discuss all pending results with your provider listed above in these instructions. ?? Add On Lab Order?? Urinalysis w/hold for Urine Culture?? What to do next Instructions From Your Doctor You will go home with the following NEW medications: Amlodipine (amLODIPine 5 mg oral tablet)?5?Milligram?G Tube?Daily?for 30?Days?? Clopidogrel (Plavix 75 mg oral tablet)?75?Milligram?G Tube?Daily?for 30?Days?? Senna (Senna 8.6 mg oral tablet)?17.2?Milligram?2?tab(s)?G Tube?Daily?as needed?for 7?Days?as needed for constipation? The following medications were CHANGED : ??None ? The following medications were?? STOPPED: ??None ? Activity changes: -?As tolerated. - I??have sent prescription for??1 month??except for senna for 7 days. ??[facility] for further refills. ? Who to follow up with after being discharged from the hospital: -??Please follow up at your primary??care doctor's office in 1-2 weeks. Please make appointment with the clinic. - Please follow up with neurologist as outpatient. Please call office to schedule appointment. ?? Reasons to immediately return to the emergency room or call 911: - You pass out or faint. - You develop any acute weakness or numbness in any part of the body. - You develop any acute??speech difficulty, swallowing problem,??vision problem.? - You have any other concerns that you think require emergency management. ?? Orders??:Tube feeding? 04/19/24 14:24:00 EST?? Prescriptions??, ??04/19/24 14:24:00 EST?? Scheduled Follow-Up Appointments 2024 10:30 AM EDT ?? With: Adri Mckeon MD Where: [facility] [address] [facility] [address] [facility], [address] [place] [id number]- Status: Pending You Need to Schedule the Following Appointments Follow Up with??Adri Mckeon MD When:??07/04/2024 10:30 AM EDT Where: [facility], [address] [facility], [address] [place] [id number]- Follow Up with??Bernard SOSA, Eunice When:??Within 1 to 2 weeks Where: [address] [place] [address] [address] [place] [address]- Discharge Medications DALTON COLLINS :1965 Visit Date:04/12/2024 Medications: Please continue your medications until treatment is completed or stopped by your provider. Medications not listed below should be discontinued. Discuss any questions related to medications with your provider. What How Much When Instructions Next Dose New Amlodipine (amLODIPine 5 mg oral tablet) 5 Milligram Gastrostomy/PEG Tube Daily Duration: 30 Days Pickup at [facility] Monday04/20/23 9am New Senna (Senna 8.6 mg oral tablet) 2 tab(s) Gastrostomy/PEG Tube Daily as needed for as needed for constipation Duration: 7 Days Pickup at [facility] Monday04/20/23 9am Changed Aspirin (aspirin 81 mg oral tablet, chewable) 81 Milligram Gastrostomy/PEG Tube Daily Duration: 30 Days Pickup at [facility] Monday04/20/23 9am Changed Clopidogrel (Plavix 75 mg oral tablet) 75 Milligram Gastrostomy/PEG Tube Daily Duration: 30 Days Pickup at [facility] Monday04/20/23 9am Changed Divalproex Sodium (divalproex sodium 500 mg oral enteric coated tablet) 1 tab(s) Twice a day Via G tube with food ?? Monday04/19/23 9pm Changed Hydrochlorothiazide-Lisinopril (hydrochlorothiazide-lisinopril 12.5 mg- 20 mg oral tablet) 1 tab(s) Gastrostomy/PEG Tube Daily Monday04/20/23 9am Changed Metformin (metFORMIN 1000 mg oral tablet) 1 tab(s) Gastrostomy/PEG Tube Twice a day Monday04/20/23 9pm Changed Topiramate (topiramate 50 mg oral tablet) 1 tab(s) Gastrostomy/PEG Tube Daily Monday04/20/23 9am Unchanged Atorvastatin (atorvastatin 80 mg oral tablet) 1 tab(s) Oral Daily Monday04/20/23 9am Unchanged dulaglutide (Trulicity Pen 1.5 mg/ 0.5 mL subcutaneous solution) 0.5 Milliliter Subcutaneous Injection Every week on Monday ?? Take as directed Pharmacy Information [facility]: [address] [place] [address] [address] [place], [place] [id number] [phone] ?? What How Much When Comments Stop Taking Sertraline (sertraline 25 mg oral tablet) 1 tab(s) Oral Daily Stop Taking Prescription Given During Visit Amlodipine (amLODIPine 5 mg oral tablet) - 5 mg, G Tube, Daily, # 30 tablet, 0 Refills, [facility], [facility] [address] [place] [phone]?? Aspirin (aspirin 81 mg oral tablet, chewable) - 81 mg, G Tube, Daily, # 30 tablet, 0 Refills, [facility], [place] [address] [place] [phone]?? Clopidogrel (Plavix 75 mg oral tablet) - 75 mg, G Tube, Daily, # 30 tablet, 0 Refills, [facility], [address] [place] [phone]?? Senna (Senna 8.6 mg oral tablet) - 2 tablet = 17.2 mg, G Tube, Daily, # 14 tablet, 0 Refills, [facility], [facility] [address] [place] [phone]?? Laboratory Results Below is a partial list of the most recent Laboratory test results done prior to this discharge. You may have had other tests and procedures not included in this list. Please discuss all test resultswith your provider. Est Creatinine Clearance - 82.44 mL/min (04/19/2024) AST (04/10/2024) ???AST (SGOT) - HEMOLYZED Basic Metabolic Panel (04/16/2024) ???Sodium - 140 mmol/L???Potassium - 3.3 mmol/L???Chloride - 102 mmol/L???Bicarbonate Level - 24 mmol/L???Anion Gap - 14???Glucose Level - 189 mg/dL???BUN - 16 mg/dL???Creatinine-Blood - 0.87 mg/dL???Estimated GFR Creatinine - 101 ML/MIN/1.73 M2???Calcium - 9.6 mg/dL BUN (04/15/2024) ???BUN - 13 mg/dL CBC (04/16/2024) ???WBC - 5.7 k/mm3???RBC - 5.71 m/mm3???Hgb - 16.3 Gm/dL???Hct - 46.3 %???MCV - 81.1 femtoliters???MCH - 28.5 pg???MCHC - 35.2 Gm/dL???Platelet Count - 135 k/mm3???RDW-SD - 38.5 femtoliters???MPV - 10.2 femtoliters???Nucleated RBC (Automated) - 0.0 #/100 WBC'S???Abs. NRBC - 0.0 k/mm3 CBC w/ Differential (04/11/2024) ???WBC - 4.5 k/mm3???RBC - 5.51 m/mm3???Hgb - 15.3 Gm/dL???Hct - 43.8 %???MCV - 79.5 femtoliters???MCH - 27.8 pg???MCHC - 34.9 Gm/dL???Platelet Count - 172 k/mm3???RDW-SD - 37.2 femtoliters???MPV - 9.5 femtoliters???Nucleated RBC (Automated) - 0.0 #/100 WBC'S???Abs. NRBC - 0.0 k/mm3???Abs. Neut - 2.4 k/mm3???Abs. Lymph - 1.6 k/mm3???Abs. [place] - 0.3 k/mm3???Abs. Eo - 0.1 k/mm3???Abs. Baso - 0.0 k/mm3???Neut % - 53.7 %???Lymph % - 35.6 %???[place] % - 6.7 %???Eos % - 3.1 %???Baso % - 0.7 %???Imm Gran - 0.2 %???Abs. Imm Gran - 0.0 k/mm3 Comprehensive Metabolic Panel (04/19/2024) ???Sodium - 142 mmol/L???Potassium - 4.9 mmol/L???Chloride - 106 mmol/L???Bicarbonate Level - 21 mmol/L???Anion Gap - 15???Glucose Level - 202 mg/dL???BUN - 25 mg/dL???Creatinine-Blood - 0.96 mg/dL???Estimated GFR Creatinine - 92 ML/MIN/1.73 M2???Calcium - 9.5 mg/dL???Protein, Total - 7.5 Gm/dL???Albumin - 4.0 Gm/dL???AG Ratio - 1.1???Alkaline Phosphatase - 68 units/L???AST (SGOT) - 30 units/L???ALT (SGPT) - 35 units/L???Bilirubin, Total - 0.6 mg/dL Creatinine (04/15/2024) ???Creatinine-Blood - 0.73 mg/dL???Estimated GFR Creatinine - 106 ML/MIN/1.73 M2 Electrolytes (04/16/2024) ???Sodium - 141 mmol/L???Potassium - 3.7 mmol/L???Chloride - 103 mmol/L???Bicarbonate Level - 26 mmol/L???Anion Gap - 12 Glucose Level (04/15/2024) ???Glucose Level - 136 mg/dL GLUCOSE POC (04/19/2024) ???Glucose, POC - 221 mg/dL HEMOGLOBIN A1C (04/10/2024) ???Hemoglobin A1C (Monitoring) - 8.2 % High Sensitivity Troponin T (04/10/2024) ???High Sensitivity Troponin (HSTnT) - HEMOLYZED HOLD LAVENDER TUBE (04/15/2024) ???Hold Lavender Top - SPECIMEN DISCARDED AFTER 24 HOURS. Lipid Panel (04/11/2024) ???Cholesterol - 231 mg/dL???Triglycerides - 270 mg/dL???HDL Cholesterol - 32 mg/dL???LDL Cholesterol - 145 mg/dL???Non HDL Cholesterol - 199 mg/dL Magnesium Level (04/19/2024) ???Magnesium - 2.0 mg/dL Phosphorus Level (04/19/2024) ???Phosphorus - 4.5 mg/dL POTASSIUM (04/10/2024) ???Potassium - 4.2 mmol/L Troponin T, High Sensitivity (04/10/2024) ???High Sensitivity Troponin (HSTnT) - 9 ng/L TSH WITH REFLEX TO FT4 (04/11/2024) ???TSH - 1.01 uIU/mL Type and Screen (04/10/2024) ???Blood Type - AB Positive???Antibody Screen - Negative Urinalysis w/hold for Urine Culture (04/10/2024) ???Appear/Color, Urine - COLORLESS???Specific [place], Urine - 1.039???pH, Urine - 6.5???Albumin, Urine - NEGATIVE???Glucose, Urine - 4+???Ketones, Urine - 1+???Bilirubin, Urine - NEGATIVE???Hemoglobin, Urine - NEGATIVE???Nitrite, Urine - NEGATIVE???Leukocyte, Urine - NEGATIVE???Urobilinogen - NORMAL???WBC's, Urine - NONE SEEN???RBC's, Urine - NONE SEEN???Mucus - SLIGHT???Hold Urine Culture - Testing available 48 hours from time of collection. You will be contacted within 72 hours with your results. Allergies (NKA means No Known Allergies) Lactose??(Diarrhea) Problems Active Problems??(10) Anxiety?? COVID-19?? Depression?? Diabetes?? High cholesterol?? Hypertension?? EDIN (obstructive sleep apnea)?? Seizure disorder?? Status post insertion of hypoglossal nerve stimulator?? Type 2 diabetes mellitus?? Education Materials Below is the list of Educational Leaflet Providered with your Discharge Instructions. Web[employer] Patient Education - Clopidogrel?? [employer] Patient Education - Amlodipine?? [employer] Patient Education - The F.A.S.T. Way to Diagnose a Stroke?? [employer] Patient Education - Discharge Instructions for Stroke?? Valuables and Belongings I fully understand and agree that [facility] accepts no responsibility for all my personal property including clothing, toilet articles, radios, jewelry, dentures, hearing aids, rings, money, or any other property that is in my possession or is brought to me after admission. I understand certain valuables may be placed in a hospital safe for a short period of time. I understand that the hospital is not liable for loss or damage due to accident, fire, or other natural occurrence while said property is in the safe. I accept full responsibility for any personal property that I keep with me, and will not hold the hospital responsible in case of loss or disappearance. I acknowledge that i have been encouraged to send valuables and belongings home. ?? Review of Valuable and Belonging List: With patient Date for Pt to Sign Valuables/Belongings: 04/12/24 18:23:00 ?? Other Discharge Information ? Case Management Discharge Plan?? Discharge Plan?? Discharge Agency Information?? Discharge Level of Care at Discharge: Homehealth/VNA Name of Agency #1: [facility] Discharge Rx Program: Discharge Prescription Program Name of Agency #1: [facility] Discharge Transportation Arranged: Fabienne Service Categories #1: Long Term Discharge VNA/Hospice/Home Care: [facility] [phone] Service Comments #1: [facility] will provide a Skilled Nurse and they will see you tomorrow. Discharge Medical Equipment Companies: [facility] Service Categories #2: Other: Tube Feeds ?? Service Comments #2: [facility] will provide your Tube feeds and your tube feeds will bedelivered by 8p tonight. ?? Name of Person Notified of Transfer: Patient ?? Pulmonary Rehab Status?? Pulmonary Rehab Discharge Status?? Respiratory Rate: 18 br/min Discharge Medical Equipment Companies: [facility] ? Common Emergency Awareness Tips IS IT A STROKE? Act FAST and Check for these signs: FACE Does the face look uneven? ARM Does one arm drift down? SPEECH Does their speech sound strange? TIME Call at any sign of stroke ?? Heart Attack Signs Chest discomfort: Most heart attacks involve discomfort in the center of the chest and lasts more than a few minutes, or goes away and comes back. It can feel like uncomfortable pressure, squeezing, fullness or pain. Discomfort in upper body: Symptoms can include pain or discomfort in one or both arms, back, neck, jaw or stomach. Shortness of breath: With or without discomfort. Other signs: Breaking out in a cold sweat, nausea, or lightheaded. Remember, MINUTES DO MATTER. If you experience any of these heart attack warning signs, call to get immediate medical attention! ?? Smoking can increase your chances of developing chronic health problems and can cause harmful effects to other family members in your house. If you smoke, you are strongly encouraged to quit. Please call [facility] at [phone] or [phone] ([phone]) or log in to [email or web address] for referrals to smoking cessation programs. ?? 525 Suicide & Crisis Lifeline is available 07/11 if you or someone you know needs to find a reason to keep living. By calling 131 you'll be connected to a skilled, trained counselor at a crisis center in your area. INPATIENT DISCHARGE INSTRUCTIONS SIGNATURE PAGE DALTON COLLINS Location:[facility] Registration Date and Time:04/12/2024 12:54 EST Primary Care Physician: Eunice Wagner NP, Attending Physician: Deepak Rodrigues MD, I DALTON COLLINS, have received the above patient education materials/instructions and have verbalized understanding. If ambulance or transport services are being used I further acknowledge being given a choice of service. ?? If you need to contact me, please call me at this number: . Patient/Car Rental Agent Name: Patient/Car Rental Agent Signature: Relationship to Patient: Witness Name/Signature: Date: * Meagan Rai RN: PERFORM Event Display: Patient Education Leaflets Authored Date: [id number] Dysphagia (Adult) ?? [id number] Dysphagia (Adult) Dysphagia is??trouble swallowing.??If you have dysphagia, you may have symptoms that include: ??? Choking or coughing when you eat or drink ??? Food getting stuck ??? Drooling ??? Inability to swallow ??? Pain behind the breastbone after swallowing ??? Vomiting after you eat or drink ??? Inhaling into the lungs (aspirating) foods or liquids when you swallow The main causes of dysphagia are problems that affect the mouth, throat or tongue. Dysphagia may becaused by a problem with the tube (esophagus) that carries food from the mouth to the stomach. These include blockage, swelling, or irritation from acid reflux or injury. An infection of the esophagus or an allergic reaction in the esophagus can also cause dysphagia. Problems in the brain, such as a stroke or Parkinson disease, can affect the muscles that coordinate swallowing. Dysphagia is treated by treating the cause. Your healthcare provider may evaluate you using X-ray, special esophagus monitors, a fiber optic look at swallowing, or an upper endoscopy. This test uses a thin, lighted tube (catheter) sent through your mouth to the esophagus. You may be given medicine t o reduce stomach acid or control muscle spasms. If the problem doesn't go away, you may have a procedure to widen (dilate) the esophagus.??If you have muscle or nerve problems, you may be advised to see a speech or occupational therapist. They??may give you exercises and instructions to help make eating safer. If you have an infection or allergic condition, your healthcare provide will prescribe medicine for it. Home care To help ease the symptoms of dysphagia: ??? Take any medicine you???ve been given exactly as directed. Ask for thickened liquid medicines if you need them. ??? To make eating easier: o Eat slowly.?? o Eat in a relaxed setting. o Don???t talk while you eat. o Take small bites. Chew slowly and completely before you swallow. o Sit upright during and after meals. Chewing food releases enzymes in yourmouth that start the digestive process. Chew soft foods at least 5 to10 times. Chew more dense food, such as meats and vegetables, up to 30 times before swallowing. Count the number of times you chewuntil you get a sense of how soft the food needs to be before swallowing. o Don't eat dry bread products or meat fibers. o Puree solid foods if needed. Thicken liquids with milk, juice, broth, gravy,or starch to make them easier to swallow. o Ask your healthcare provider if a liquid diet may be better for you. o Ask for a referral to a racquet maker if you are losing weight or having trouble getting enough food each day ?? Follow-up care Follow up with your healthcare provider or as directed. Your healthcare provider can give you information about tests you may need.? When to get medical advice Call your healthcare provider or get medical care right away for any of the following: ??? Inability to keep down food or liquid ??? Symptoms get worse quickly ??? Coughing that won't stop ??? Continuing to lose weight ??? Fever of 100.4??F (38??C) or higher, or as directed by your provider ??? Other symptoms as directed by your provider ?? Call 911 Call 911 for any of the following: ??? Trouble breathing ??? Inability to talk ??? Drooling, inability to control secretions ??? Loss of consciousness ?? Last Reviewed Date: 2023 ?? 2992-1230 [employer]. All rights reserved. This information is not intended as a substitute for professional medical care. Always follow your healthcare professional's instructions. ?? * Meagan Rai RN: PERFORM Event Display: Patient Education Leaflets Authored Date: [id number] Understanding Dysphagia ?? 00184 Understanding Dysphagia If you have a problem swallowing foods or liquids, you may have dysphagia. This health problem has a number of causes. Your healthcare provider can find out what is causing your problem. Treatment can help ease your symptoms. When you swallow Your tongue pushes foods or liquids from your mouth to your throat as you eat or drink and swallow.They then pass down the esophagus (a muscular tube) into the stomach. The esophagus muscles tightenand relax in wavelike motions. This keeps foods or liquids moving. ?? Causes of dysphagia With dysphagia, foods or liquids don't easily pass down the esophagus. Dysphagia may happen if the esophagus ruiz thicken. This can cause a narrowing (stricture) of the tube. Dysphagia can also be caused by: ??? Other problems in the esophagus. This may be an ulcer,??irritation, infection, inflammation, or cancer. ??? A problem with the muscles in your mouth, throat, or esophagus. They don???t work as they should. ??? A problem with nerves or the brain. This could result from a stroke, cerebral palsy, multiple sclerosis, or Parkinson disease. These can leave your mouth, tongue, or throat muscles weak. Or they may change how your muscles work. ?? Common symptoms If you have dysphagia, you may: ??? Feel chest pressure or pain when you swallow ??? Need extra effort or time needed to chew or swallow ??? Choke or cough when you swallow ??? Have food get stuck inyour mouth when trying to swallow ??? Vomit after you eat or drink ??? Bring up food or liquid swallowed (regurgitate) out your nose? Breathe food or liquids into the lungs (aspirate) when you swallow ??? Have a hard time breathing after meals ??? Have fatigue and weight loss ?? Last Reviewed Date: 2021 ?? 3582-9711 [employer]. All rights reserved. This information is not intended as a substitute for professional medical care. Always follow your healthcare professional's instructions. ?? * Fredi JEAN, Meagan: PERFORM Event Display: Patient Education Leaflets Authored Date: [id number] Managing Dizziness (Vertigo) With Medicines ?? 56600 Managing Dizziness (Vertigo) With Medicines Although medicines can't cure all of your problems, they can help control your symptoms. Your health care provider may prescribe medicines for a few weeks and then taper them off. Always take your medicine as prescribed. Never share your medicine with others. When to contact your health care provider Contact your health care provider right away if you have side effects from your medicines. Before using a new urdz-fjq-adwudgo medicine, check with your provider or the pharmacist to be sure there won't be an interaction with other medicines you are taking. ?? How medicines can help ??? Treat infection or inflammation. If you have an infection caused by bacteria, your health care provider can prescribe antibiotics. ??? Limit conflicting balance signals. These medicines are often in pill form. ??? Ease nausea. Suppositories, pills, or shots can reduce vomiting. ??? Reduce pressure in the canals. Diuretics can be used to treat M??ni??re's disease. These medicines help your body get rid of extra fluid. ??? Ease other symptoms. Other medicines can help ease depression and anxiety caused by living with dizziness or fainting. ?? Last Reviewed Date: 2024 ?? 8366-0093 [employer]. All rights reserved. This information is not intended as a substitute for professional medical care. Always follow your healthcare professional's instructions. ?? * Alyse Cantor RN: PERFORM Event Display: Discharge/Transfer Note Hospital Authored Date: [id number] Discharge Planning Nursing Entered On: 04/12/2024 18:30 EST Performed On: 04/12/2024 18:29 EST by Alyse Cantor RN Discharge Planning Nursing Anticipated discharge : Home Alyse Cantor RN - 04/12/2024 18:29 EST Indicator(s) for VNA/Home Care Services Able to safely function at home Able to safely ambulate at home : Yes Able to safely function at home : Yes Able to obtain meds: fill prescriptions : Yes Understands home medications : Yes Has food available at home : Yes Able to prepare/obtain meals : Yes Able to arrange transportation home : Yes Able to gain entry into home : Yes Exhibits impaired orientation : No Exhibits impaired comprehension : No Exhibits impaired judgement : No Caregiver willing to support patient : Yes Caregiver available to support patient : Yes Caregiver capable to support patient : Yes Alyse Cantor RN - 04/12/2024 18:29 EST New/changed/complex medication regime Recent change in mental health status : No Change in functional status : No New/changed/complex medication regime : No New Diagnosis : Yes Recent change in diet : Yes Catheter and/or Drain present : No Wound care / Colostomy care needed : No New injections : No IV therapy/TPN : No Impaired speech, swallow, communication : No Social problems or barriers : No Overwhelmed or noncompliant caregiver : No New DME Needed for Home : No Oxygen need at home or to transport home : No Alyse Cantor RN - 04/12/2024 18:29 EST Patient Care team information Care Team Personnel Name: Gunner Hinds RN Position: [facility] RN Member Role: Primary Care Nurse Name: Madelaine Ohara RN Position: [facility] RN Member Role: Primary Care Nurse Name: Eddie Gil RN Position: [facility] RN Member Role: Primary Care Nurse Name: Michaela Hadley RN Position: [facility] RN Member Role: Primary Care Nurse Name: Guanaco Hdez RN Position: [facility] RN Member Role: Primary Care Nurse Name: Jimena Abdalla RN Position: [facility] RN Member Role: Primary Care Nurse Name: Eunice Wagner NP Position: [facility] Office Staff Member Role: PCP Address: [address] [place] [id number] Telecom: Name: Gavin Weber RN Position: [facility] RN Member Role: Primary Care Nurse Name: Alessandra Rodriguez RN Position: [facility] RN Member Role: Primary Care Nurse Name: Rodolfo Dooley Position: S RN Member Role: Primary Care Nurse Name: Myriam Roberts RN Position: [facility] RN Member Role: Primary Care Nurse Name: Amanda Alford RN Position: [facility] RN Member Role: Primary Care Nurse Name: Jany Puri RN Position: [facility] RN Member Role: Primary Care Nurse Name: Jakob Varner RN Position: [facility] RN Member Role: Primary Care Nurse Name: Lance Hannon RN Position: [facility] RN Member Role: Primary Care Nurse Name: Meagan Rai RN Position: [facility] RN Member Role: Primary Care Nurse Name: Myrtle Voss RN Position: [facility] RN Member Role: Primary Care Nurse Care Team Related Persons Name: LAVELLE CERVANTES Name: GENET COLLINS Name: MATILDE COLLINS Insurance Providers Guarantor name: [employer] Plan Information #: 1 Payer: [employer] Member Number: [id number] Policy Number: NA Group Number: [id number] Health Plan Information #: 2 Payer: [place] Member Number: [id number] Policy Number: NA Group Number: NA Health Plan Information #: 3 Payer: [employer] Member Number: NA Policy Number: NA Group Number: NA
== END 2024-04-22 11:10 | disposition home or self-care (01) ==
PROVIDERS: PCP Internal Medicine; Visit Provider Nurse Practitioner Family
DX: I69.391 Dysphagia following cerebral infarction (principal); I65.02 Occlusion and stenosis of left vertebral artery; G47.33 Obstructive sleep apnea (adult) (pediatric); Z96.82 Presence of neurostimulator; G40.A09 Absence epileptic syndrome, not intractable, without status epilepticus; R20.2 Paresthesia of skin; R41.3 Other amnesia; G62.9 Polyneuropathy, unspecified; G56.01 Carpal tunnel syndrome, right upper limb
CPT/HCPCS: 99215; G2211

== ENCOUNTER → 2024-04-22 09:56 | Outpatient (BNVA) | payer OTHER, SELFPAY | PROVIDERS: PCP Internal Medicine; Visit Provider Nurse Practitioner Family | DX: I69.391 Dysphagia following cerebral infarction (principal); I65.02 Occlusion and stenosis of left vertebral artery; G47.33 Obstructive sleep apnea (adult) (pediatric); G40.A09 Absence epileptic syndrome, not intractable, without status epilepticus; R20.2 Paresthesia of skin; R41.3 Other amnesia; G62.9 Polyneuropathy, unspecified; G56.01 Carpal tunnel syndrome, right upper limb; Z96.82 Presence of neurostimulator | CPT/HCPCS: 99212 ==

== ENCOUNTER → 2024-05-16 20:30 | Outpatient (REF) | payer OTHER, SELFPAY ==
--- OUTSIDE RECORDS SUMMARY | 2024-05-16 21:26 | XMS_ITS | Clinical Summary ---
Author Organization [address] [facility] Address [address] [place] [address] Phone Care Team Providers Care Fleet Manager/Dispatch Name Role Phone PatitoSee mejia Primary Care Provider [phone] Allergies No known active allergies Medications Medication Sig Dispensed Refills Start Date End Date Status amLODIPine (NORVASC) 5 mg tablet 1 tablet (5 mg total) by Intragastric route 1 (one) time each day. 04/19/2024 05/19/2024 Active aspirin 81 mg chewable tablet 1 tablet (81 mg total) by Intragastric route 1 (one) time each day. 04/19/2024 05/19/2024 Active clopidogreL (Plavix) 75 mg tablet 1 tablet (75 mg total) by Intragastric route 1 (one) time each day. 04/19/2024 05/19/2024 Active cholecalciferol (VITAMIN D-3) 25 mcg (1,000 unit) capsule Take 1 capsule (1,000 Units total) by mouth 1 (one) time each day. Active divalproex (DEPAKOTE) [address] tablet Take 1 tablet (500 mg total) by mouth 2 (two) times a day. 04/11/2024 Active dulaglutide (Trulicity) 4.5 mg/0.5 mL pen injector injection Inject 0.5 mL (4.5 mg total) under the skin 1 (one) time per week. Active lisinopriL (PRINIVIL,ZESTRIL) 5 mg tablet Take 1 tablet (5 mg total) by mouth 1 (one) time each day. 02/28/2024 Active metFORMIN (GLUCOPHAGE) 1,000 mg tablet Take 1 tablet (1,000 mg total) by mouth 2 (two) times a day with meals. 04/11/2024 Active topiramate (TOPAMAX) 50 mg tablet Take 1 tablet (50 mg total) by mouth 1 (one) time each day. 04/11/2024 Active atorvastatin (LIPITOR) 80 mg tablet Take 1 tablet (80 mg total) by mouth at bedtime. Active lisinopril-hydroCH LOROthiazide (PRINZIDE,ZESTORET IC) 20-12.5 mg per tablet Take 1 tablet by mouth 1 (one) time each day. Active sertraline (ZOLOFT) 25 mg tablet Take 1 tablet (25 mg total) by mouth 1 (one) time each day. Active FLUoxetine (PROzac) 20 mg capsule Take 1 capsule (20 mg total) by mouth 1 (one) time each day. Active omeprazole OTC (PriLOSEC OTC) 20 mg EC tablet Take 1 tablet (20 mg total) by mouth 1 (one) time each day. Do not crush, chew, or split. Active Active Problems Problem Noted Date Diagnosed Date Dyspnea on effort 05/13/2024 Assessment & Plan (05/13/2024 5:05 PM EST): Since first stroke. Differential diagnosis includes deconditioning versus exertional HFpEF. Low suspicion for angina given negative exercise stress echocardiogram in August 2023. He is clinically euvolemic on exam. Encourage gradual resumption of physical activity, such as walking, with the approval of neurologist and physical therapist. New onset right bundle branch block (RBBB) 05/10 Chest pain 05/10/2024 Assessment & Plan (05/13/2024 5:05 PM EST): Patient does not even remember having this symptom. Negative exercise stress echo. No further workup. 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 - Continue current regimen of high-dose statin, aspirin, Plavix, and blood pressure management. Primary hypertension 05/10/2024 Assessment & Plan (05/13/2024 5:05 PM EST): Well-controlled today. Continue current medication regimen of amlodipine, lisinopril, and hydrochlorothiazide. Encounters Date Type Department Care Team Description 05/13/2024 2:00 PM EST Office Visit [facility] Cardiology [facility] [address] [place] [address] Renuka Lopez MD Acute CVA (cerebrovascular accident) (CMS/HCC) (Primary Dx); Chest pain; Right bundle branch block; Primary hypertension; Dyspnea on effort 04/15/[address] [facility] Cardiology [facility] [address] [address] [place] [address] See [place] DO from Last 3 Months Medical History Medical History Date Comments Hyperlipidemia Paresthesia Dysphagia EDIN (obstructive sleep apnea) Seizure disorder ([facility]/HCC) Family History Medical History Relation Name Comments Stroke Mother Relation Name Status Comments Mother Social History Tobacco Use Types Packs/Day Years Used Date Smoking Tobacco: Never Smokeless Tobacco: Never Tobacco Cessation:Counseling Given: Not Answered Alcohol Use Standard Drinks/Week Comments Never 0 (1 standard drink = 0.6 oz pur e alcohol) Sex and Gender Information Value Date Recorded Sex Assigned at Not on file Gender Identity Not on file Sexual Orientation Not on file Job Start Date Occupation Industry Not on file Not on file Not on file Obstetrics History Last Filed Vital Signs Vital Sign Reading Time Taken Comments Blood Pressure 118/80 05/13/2024 2:07 PM EST Pulse 93 05/13/2024 2:07 PM EST Temperature - - Respiratory Rate - - Oxygen Saturation 97% 05/13/2024 2:07 PM EST Inhaled Oxygen Concentration - - Weight 81.2 kg (179 lb) 05/13/2024 2:07 PM EST Height 172.7 cm (5' 8 ) 05/13/2024 2:07 PM EST Body Mass Index 27.22 05/13/2024 2:07 PM EST Plan of Treatment Health Maintenance Due Date Last Done Comments Diabetes: Annual GFR (Glomerular Filtration Rate) 1966 Diabetes: Annual Foot Exam 1976 Diabetes: Annual Retina Eye Exam 1976 DTaP,Tdap,and Td Vaccines (1 - Tdap) 1985 Hepatitis B Vaccines (1 of 3 - 19+ 3-dose series) 1985 Zoster Vaccines (1 of 2) 2016 Cholesterol Screening (Lipid Panel) 03/20/2022 Colorectal Cancer Screening: Colonoscopy 03/20/2022 Depression Screening 03/20/2022 HIV Screening 03/20/2022 Hepatitis C Screening 03/20/2022 Social Influencers of Health Screening 03/20/2022 Hypertension/CHF/CAD Annual BMP Blood Test 11/10/2023 COVID-19 Vaccine (3 - 2023-2 5 season) 2023 08/30/2020, 08/10/2020 Influenza Vaccine (#1) 2023 Diabetes: Annual Urine Albumin-Creatinine Ratio (uACR) 04/26/2024 Diabetes: Blood Sugar Contro l Test (HGBA1C) 04/26/2024 HIB Vaccines Aged Out No longer eligi ble based on patient's age to complete this topic HPV Vaccines Aged Out No longer eligi ble based on patient's age to complete this topic Hepatitis A Vaccines Aged Out No long er eligible based on patient's age to complete this topic IPV Vaccines Aged Out No longer eligi ble based on patient's age to complete this topic MMR Vaccines Aged Out No longer eligi ble based on patient's age to complete this topic Meningococcal ACWY Vaccine Aged Out N o longer eligible based on patient's age to complete this topic Pneumococcal Vaccine: Pediatrics (0 to 5 Years) and At-Risk Patients (6 to 64 Years) Aged Out No longer eligible b ased on patient's age to complete this topic RSV Immunization Patients Under 20 months Aged Out No longer eligible b ased on patient's age to complete this topic Varicella Vaccines Aged Out No longer eligible based on patient's age to complete this topic Procedures Procedure Name Priority Date/Time Associated Diagnosis Comments ECG 12-LEAD Routine 05/13/2024 2:11 PM EST Chest pain Right bundle branch block CBC WITH AUTO DIFFERENTIAL Routine 04/26/2024 3:25 PM EST Low platelet count (CMS/HCC) Hospital discharge follow-up CBC AND DIFFERENTIAL Routine 04/26/2024 3:25 PM EST Low platelet count (CMS/HCC) Hospital discharge follow-up from Last 3 Months Results * ECG 12 lead (05/13/2024 2:11 PM EST) Ventricular Rate ECG 93 BPM GEMUSE Atrial Rate 93 BPM GEMUSE P-R Interval 140 ms GEMUSE QRS Duration 146 ms GEMUSE Q-T Interval 352 ms GEMUSE QTc 437 ms GEMUSE P Wave [place]ao 60 degrees GEMUSE R [place] 90 degrees GEMUSE T [place] 23 degrees GEMUSE ECG Interpretation Normal sinus rhythm Right bundle branch block Abnormal ECG No previous ECGs available Confirmed by RENUKA LOPEZ ([id number]) on 05/13/2024 3:11:22 PM GEMUSE 05/13/2024 2:11 PM EST 05/13/2024 3:11 PM EST Renuka Lopez MD ECG ORDERABLES GEMUSE * (ABNORMAL) CBC auto differential (04/26/2024 3:25 PM EST) Pathologist [facility] WBC 9.2 4.8 - 10.8 K/mcL LAB HEMETOLOGY METHOD 04/26/2024 7:29 PM EST [facility] RBC 6.20(H) 4.50 - 5.50 M/mcL LAB HEMETOLOGY METHOD 04/26/2024 7:29 PM EST [facility] Hemoglobin 17.3 13.5 - 17.5 g/dL LAB HEMETOLOGY METHOD 04/26/2024 7:29 PM [facility] Hematocrit 49.5 42.0 - 54.0 % LAB HEMETOLOGY METHOD 04/26/2024 7:29 PM [facility] MCV 80.4 79.0 - 98.0 FL LAB HEMETOLOGY METHOD 04/26/2024 7:29 PM [facility] MCH 28.1 27.0 - 32.0 pcg LAB HEMETOLOGY METHOD 04/26/2024 7:29 PM [facility] MCHC 34.9 32.0 - 37.0 g/dL LAB HEMETOLOGY METHOD 04/26/2024 7:29 PM [facility] RDW 12.7 11.0 - 15.0 % LAB HEMETOLOGY METHOD 04/26/2024 7:29 PM [facility] Platelets 278 130 - 400 K/mcL LAB HEMETOLOGY METHOD 04/26/2024 7:29 PM [facility] MPV 11.1(H) 7.0 - 11.0 FL LAB HEMETOLOGY METHOD 04/26/2024 7:29 PM [facility] NRBC 0.0 <1.0 % LAB HEMETOLOGY METHOD 04/26/2024 7:29 PM [facility] NRBC Absolute 0.00 <0.10 K/mcL LAB HEMETOLOGY METHOD 04/26/2024 7:29 PM [facility] Neutrophils Relative 63.9 % LAB HEMETOLOGY METHOD 04/26/2024 7:29 PM [facility] Lymphocytes Relative 23.6 % LAB HEMETOLOGY METHOD 04/26/2024 7:29 PM [facility] Monocytes Relative 10.3 % LAB HEMETOLOGY METHOD 04/26/2024 7:29 PM [facility] Eosinophils Relative 1.1 % LAB HEMETOLOGY METHOD 04/26/2024 7:29 PM EST [facility] Basophils Relative 0.7 % LAB HEMETOLOGY METHOD 04/26/2024 7:29 PM [facility] Immature Granulocytes Relative 0.4 % LAB HEMETOLOGY METHOD 04/26/2024 7:29 PM [facility] Neutrophils Absolute 5.88 1.50 - 7.00 K/mcL LAB HEMETOLOGY METHOD 04/26/2024 7:29 PM [facility] Lymphocytes Absolute 2.17 1.00 - 5.00 K/mcL LAB HEMETOLOGY METHOD 04/26/2024 7:29 PM [facility] Monocytes Absolute 0.95 0.20 - 1.00 K/mcL LAB HEMETOLOGY METHOD 04/26/2024 7:29 PM [facility] Eosinophils Absolute 0.10 0.00 - 0.50 K/mcL LAB HEMETOLOGY METHOD 04/26/2024 7:29 PM [facility] Basophils Absolute 0.06 0.00 - 0.20 K/mcL LAB HEMETOLOGY METHOD 04/26/2024 7:29 PM [facility] Immature Granulocytes Absolute 0.04(H) 0.00 - 0.03 K/mcL LAB HEMETOLOGY METHOD 04/26/2024 7:29 PM [facility] Blood Venous blood specimen / Unknown Venipuncture / Unknown 04/26/2024 3:25 PM EST 04/26/2024 3:25 PM EST Bryan Cueva LAB BLOOD ORDERABLES [facility] [address] [place] [address], from Last 3 Months Care Teams Fleet Manager/Dispatch Relationship Specialty Start Date End Date See Ch[place] DO [address] [place] [phone] PCP - General 08/03/23
--- OUTSIDE RECORDS SUMMARY | 2024-05-16 21:26 | XMS_ITS | Data Portability ---
Author Organization [place] [facility], Allergy Address [address] [place] [phone] Assessment Encounter Date Assessment Date Assessment LastModified [...] Recorded Time Obstructi ve sleep apnea syndrome 14112138 Active 2017 Obstructi ve sleep apnea (adult) (pediatri c); Note: Date Diagnosed : 8 5:11 PM (G47.33) Not Available [facility] 4 03:31:36 Body mass index 25-29 - overweigh t 453327641 Active 2018 Body mass index (BMI) 28.0-28.9 , adult; Note: Date Diagnosed : 9 3:09 PM (Z68.28) Not Available [facility] 4 03:31:36 Sensorine ural hearing loss of bilateral ears 733997282 Active [address] [facility] [place] [address], [place], [address] , [facility] - [facility] 4 15:29:39 Impacted cerumen of bilateral ears 90103142654 Active 2023 JAISON HINDS MD [address] [facility] [facility] [place] [address], [place], [address] , [facility] - [facility] 4 16:24:22 Central perforati on of left tympanic membrane 41819789629 Active 2023 JAISON HINDS MD [address] [place] [address],[place] [address], [place], [address] , [facility] - [facility] 4 16:24:35 Problem Notes None recorded. Procedures Surgical History Date Name Laterality Status Provider Name and Address Organization Details Recorded Time 02/28/20 24 Cerumen removal with microscope bilateral completed JAISON HINDS MD [address] [place] [address],[place] [address], [place], [phone], [facility] 02/28/2024 16:23:57 02/28/20 24 Tympanometry (74477) completed TRISH EDDY [address] [facility],[place] [address], [place], [address], [facility] 02/28/2024 15:29:25 Imaging Results Imaging Date Name Status LastModified by Organiz ation Details LastModified Time 02/29/2024 audiogram completed [facility] Information no t available 02/29/2024 10:43:30 Procedure Notes None recorded. Medical Equipment None Reported. Allergies No known drug allergies Medications Name Sig Start Date Stop Date Status Note LastModified by Organization Details LastModified Time atorvasta tin 40 mg tablet 02/27 completed Medicatio n ID: [id number] Br and Name: atorvasta tin Send Method: [...] mg capsule 02/27 completed Medicatio n ID: [id number] Pr escribed By Name: Jess Mora Name: [...] mg tablet 2023 active Medicatio n ID: [id number] Br and Name: lisinopri l Send Method: E-Prescri bed Subs Allowed: subs OK Medica tionGener icName: lisinopri l Not Available Not Available Not Available fluoxetin e 20 mg capsule 02/27 completed Medicatio n ID: [id number] Br and Name: fluoxetin e Send Method: [...] 24hr (osmotic) 02/27 completed Medicatio n ID: [id number] Br and Name: metformin Send Method: E-Prescri bed Subs Allowed: subs OK Medica tionGener icName: metformin Not Available Not Available Not Available cholecalc iferol (vitamin D3) 1,250 mcg (50,000 unit) capsule 02/27 completed Not Available Not Available Not Available Invokana 2017 active Medicatio n ID: [id number] Br and Name: invokana Send Method: E-Prescri bed Subs Allowed: subs OK Medica tionGener icName: invokana Not Available Not Available Not Available Bydureon BCise 2 mg/0.85 mL subcutane ous auto-inje ctor 02/27 completed Medicatio n ID: [id number] Br and Name: Bynorisreon BCise Sen d [...] SNOMED-CT Code Diagnosis ICD10 Code Diagnosis Note [id number] JAISON HINDS MD [facility] [address] [address] 02/28/2024 14:53:35 02/28/2024 15:46:57 Sensorineural hearing loss of bilateral ears [id number] H90.3 Previously found SNHL. Denied testing today. Tympanomet ry: Right: Type {{A* B B with large ECV C}} Left: {{A* B B with large ECV C}} Impacted c erumen of bilateral ears 1248884303 360903 H61.23 Central pe rforation of left tympanic membrane [id number] 862925 H72.02 Health Concerns Section Related Observation LastModified [...] which shows normal tympanometry. JAISON HINDS MD [address] [place] [address], [phone], [facility] - [facility] 02/28/2024 16:25:09
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
== END ==
LOC: HO.SL 20:30
PROVIDERS: PCP Internal Medicine; Visit Provider Nurse Practitioner Family
DX: G47.33 Obstructive sleep apnea (adult) (pediatric) (principal)

== ENCOUNTER → 2024-05-16 21:25 | Outpatient (BNV) | payer OTHER, SELFPAY | PROVIDERS: PCP Internal Medicine; Visit Provider Psychiatry & Neurology Neurology | DX: G47.61 Periodic limb movement disorder (principal) | CPT/HCPCS: 95810 ==

== ENCOUNTER 2024-05-29 12:46 | Outpatient (REF) | payer OTHER, SELFPAY ==
--- OUTSIDE RECORDS SUMMARY | 2024-05-29 15:31 | XMS_ITS | Encounter Summary ---
Author Organization [facility] Address [address] [place] [address] Care Team Providers Care Oil Process Stillman Name Role Phone See Chino DO Primary Care Provider [phone] Reason for Visit * Reason Comments Establish Care Initial Visit3 * Consultation (Routine) - Closed Specialty Diagnoses / Procedures Referred By Contac t Referred To Contact Cardiology Diagnoses Chest pain Right bundle branch block See Chino DO [address] [place] [phone] Phone: tel: fax: [facility] [address] [place] [address] Phone: tel: fax: Referral ID Status Reason Start Date Expiration Date V isits Requested Visits Authorized [id number] Closed Specialty Services Required 04/30/2024 04/30/2025 1 1 Encounter Details Date Type Department Care Team (Late st Contact Info) Description 05/13/2024 2:00 PM EST Office Visit [facility] - [address] [facility] [address] [place] [address] Renuka Lopez MD [address] [place] [address] Acute CVA (cerebrovascular accident) (CMS/HCC) (Primary Dx); [...] PM ESTAssociated Problem(s): Acute CVA (cerebrovascular accident) ([facility]) - Communicate with neurologist ERNIE Dorsey at [facility] to discuss the likelihood of an [...] Lopez MD - 05/13/2024 2:00 PM EST [facility] PCP: See Chino DO BACKGROUND [...] to follow with his own neurologist at [facility] Sophy Dupont NP. In May 2023-about [...] youngest child. 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 [...] nausea and vomiting in May 2023 to [facility]-this was thought to have been a [...] Q-T Interval 352 QTc 437 P Wave [place] 60 R [place] 90 T [place] 23 ECG Interpretation Normal sinus rhythm Right [...] ECG 12 lead Acute CVA (cerebrovascular accident) ([facility]) - Communicate with neurologist ERNIE Dorsey at [facility] to discuss the likelihood of an [...] GEMUSE QTc 437 ms GEMUSE P Wave [place] 60 degrees GEMUSE R [place] 90 degrees GEMUSE T [place] 23 degrees GEMUSE ECG Interpretation Normal sinus rhythm Right bundle branch block Abnormal ECG No previous ECGs available Confirmed by RENUKA LOPEZ (161) on 05/13/2024 3:11:22 PM GEMUSE 05/13/2024 2:11 PM EST 05/13/2024 3:11 PM EST Renuka Lopez MD ECG ORDERABLES Final Result GEMUSE documented in this encounter Visit Diagnoses Diagnosis Acute CVA (cerebrovascular accident) (CMS/[facility])- Primary Chest pain Unspecified chest pain Right [...] 05/13/2024 documented in this encounter Care Teams Oil Process Stillman Relationship Specialty Start Date End Date See Chino DO [address] [place] [phone] PCP - General 08/03/23 documented as of this encounter
--- OUTSIDE RECORDS SUMMARY | 2024-05-29 15:31 | XMS_ITS | Clinical Summary ---
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 [address] [facility] [address] [place] [address] See Chino DO from Last 3 Months Medical History Medical History Date Comments Hyperlipidemia Paresthesia Dysphagia EDIN (obstructive sleep apnea) Seizure disorder ([facility]) Family History Medical History Relation Name Comments [...] GEMUSE QTc 437 ms GEMUSE P Wave [place] 60 degrees GEMUSE R [place] 90 degrees GEMUSE T [place] 23 degrees GEMUSE ECG Interpretation Normal sinus [...] LAB HEMETOLOGY METHOD 04/26/2024 7:29 PM EST [facility] RBC 6.20(H) 4.50 - 5.50 M/mcL LAB HEMETOLOGY METHOD 04/26/2024 7:29 PM EST [facility] Hemoglobin 17.3 13.5 - 17.5 g/dL [...] LAB HEMETOLOGY METHOD 04/26/2024 7:29 PM EST [facility] Basophils Relative 0.7 % LAB HEMETOLOGY [...] LAB HEMETOLOGY METHOD 04/26/2024 7:29 PM EST [facility] Basophils Absolute 0.06 0.00 [...] Cueva LAB BLOOD ORDERABLES Final Resul t [facility]) [facility] [address] [place] [address], from Last 3 Months Insurance [facility] PL[employer] Care Teams Fertilizing Machine Operator Relationship Specialty Start Date End Date See Chino DO [address] [place] [address] VANESSA John [phone] PCP - General 08/03/23
[2024-05-29 17:42] LABS: MANUAL DIFF FLAG NO
[2024-05-29 18:08] LABS: Basophils Percent Auto 0.6 % (0-2); Eosinophils Absolute Auto 0.1 X10*3/uL (0.0-0.4); Eosinophils Percent Auto 2.3 % (0-4); Hematocrit 43.4 % (42.0-52.0); Hemoglobin 15.2 g/dl (14.0-18.0); Imm Gran Abs Auto 0.01 X10*3/uL (0.00-0.03); Imm Gran Pct Auto 0.2 % (0.0-0.4); Lymphocytes Absolute Auto 1.5 X10*3/uL (1.2-4.9); Lymphocytes Percent Auto 28.9 % (20-40); Mean Corpuscular Hemoglobin 28.5 pg (27.0-33.0); Mean Corpuscular Volume 81.4 fL (80.0-98.0); Mean Platelet Volume 10.5 fL (9.4-12.4); Monocytes Absolute Auto 0.3 X10*3/uL (0.1-1.2); Monocytes Percent Auto 6.5 % (2-11); Neutrophils Absolute Auto 3.2 x10*3/uL (2.0-8.3); Neutrophils Percent Auto 61.5 % (45-73); Platelet Count 180 X10*3/uL (160-400); Red Blood Count 5.33 X10*6/uL (4.60-5.80); White Blood Count 5.2 X10*3/uL (4.8-10.8)
[2024-05-29 18:17] LABS: Rheumatoid Factor < 13.0 IU/mL (<15.0)
[2024-05-29 18:21] LABS: Alanine Aminotransferase 28 U/L (0-40); Albumin Level 4.3 g/dL (3.5-5.0); Alkaline Phosphatase 52 U/L (39-117); Anion Gap 12 (12-20); Aspartate Amino Transferase 29 U/L (5-37); Bilirubin Total 0.7 mg/dL (0.0-1.0); Blood Urea Nitrogen 15 mg/dL (9-16); Calcium 9.8 mg/dL (8.4-10.2); Carbon Dioxide 29 mmol/L (22-29); Chloride 102 mmol/L (96-108); Estimated Glomerular Filt Rate > 60; Glucose Random 97 mg/dL (60-115); Potassium 3.3 mmol/L (3.3-5.1); Sodium 140 mmol/L (135-145); Total Protein 7.9 g/dL (6.5-8.0)
[2024-05-29 18:32] LABS: Erythrocyte Sedimentation Rate 20 MM/HR (0-15)
[2024-05-29 18:36] LABS: TSH reflex Free T4 1.24 uIU/mL (0.32-4.0)
[2024-05-29 18:44] LABS: Folate 12.6 ng/mL (> or = 4.0); Vitamin B12 593 pg/mL (200-900)
[2024-05-30 08:07] LABS: CRP High Sensitivity 1.9 mg/L
[2024-05-31 08:03] LABS: Prot Elec - Albumin 4.3 g/dL (3.8-4.8); Prot Elec - Alpha1 0.3 g/dL (0.2-0.3); Prot Elec - Alpha2 0.7 g/dL (0.5-0.9); Prot Elec - Beta 1 0.5 g/dL (0.4-0.6); Prot Elec - Beta 2 0.4 g/dL (0.2-0.5); Prot Elec - Total Protein 7.2 g/dL (6.1-8.1)
[2024-06-02 10:54] LABS: Anti Nuclear Antibody Screen NEGATIVE (NEGATIVE)
[2024-06-03 17:19] LABS: Nicotinamide 23 ng/mL (see note); Vit B3 - Nicotinic Acid <20 ng/mL (see note)
[2024-06-06 14:19] LABS: Vitamin B1 17 nmol/L (8-30)
[2024-06-06 14:39] LABS: Vitamin B6 43.2 ng/mL (2.1-21.7)
[2024-06-16 08:24] LABS: Vitamin B2 (Riboflavin) 26.1 nmol/L (6.2-39.0)
== END 2024-05-29 12:47 | disposition home or self-care (01) ==
LOC: HO.HKASLDS 12:46
PROVIDERS: PCP Internal Medicine; Visit Provider Nurse Practitioner Family
DX: I69.391 Dysphagia following cerebral infarction (principal); G62.9 Polyneuropathy, unspecified; R20.2 Paresthesia of skin; R41.3 Other amnesia; R90.82 White matter disease, unspecified; G40.A09 Absence epileptic syndrome, not intractable, without status epilepticus; Z96.82 Presence of neurostimulator; I63.9 Cerebral infarction, unspecified; I65.02 Occlusion and stenosis of left vertebral artery; G47.33 Obstructive sleep apnea (adult) (pediatric)
CPT/HCPCS: 36415; 80053; 82607; 82746; 84165; 84207; 84252; 84425; 84443; 84591; 85025; 85652; 86038; 86141; 86431; 99212

== ENCOUNTER 2024-05-29 12:46 | Outpatient (AMB) | payer OTHER, SELFPAY ==
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
[2024-05-29 12:56] VITALS: BP 120/60; PULSE 84; O2SAT 96; BMI 26.5
--- OUTSIDE RECORDS SUMMARY | 2024-05-29 14:08 | XMS_ITS | Continuity of Care Document ---
Author Organization [facility] ter Address [address] [place] [id number]- Care Team Providers Care Small Animal Veterinarian Name Role Phone Eunice Wagner NP Primary Care Physician [phone] Encounter [facility] Date(s): 04/16/24 - 05/16/[address] [address] Attending Physician: Not on Staff, Attending MD Admitting Physician: Not on Staff, Admitting MD Referring Physician: Not on Staff, Referring MD Encounter Type: Pre-Outpt Allergies, Adverse Reactions, Alerts Substance Criticality Severity Reaction Reaction Severity Status Lactose Diarrhea Active Medications amLODIPine 5 mg oral tablet 5 mg, G Tube, Daily, # 30 tablet, Refills 0, Tot. Refills 0, Maintenance, 04/19/24 2:06:00 PM EST, Route to Pharmacy Electronically, [id number], Partial fill upon patient request [...] Quantity: 30.0 Unit: tablet Repeat number: 1 metFORMIN 1000 mg oral [...] 2:05:00 PM EST, Route to Pharmacy Electronically, [id number], Partial fill upon patient request if the prescription is for a schedule II opioid drug., 173, cm, 04/18/24 14:35:00 EST, Height, 85, kg, 04/12/24 18:28:00 EST, Dry Weight Start Date: 04/19/24 Stop Date: 05/19/24 Status: Ordered Quantity: 30.0 Unit: tablet Repeat number: 1 topiramate 50 [...] Confirmed Active 1Problem added by Discern Expert Social History Social History Type Response Smoking Status Never (less than 100 in lifetime) entered on: 05/01/19 Sex Sex Representation Male (finding) Patient Care team information Care Team Personnel Name: Gunner Hinds RN Position: [facility] RN Member Role: Primary Care Nurse Name: Madelaine Ohara RN Position: [facility] RN Member Role: Primary Care Nurse Name: Eddie Gil RN Position: [facility] RN Member Role: Primary Care Nurse Name: Michaela Hadley RN Position: [facility] RN Member Role: Primary Care Nurse Name: Guanaco Hdez RN Position: [facility] RN Member Role: Primary Care Nurse Name: Jimena Abdalla RN Position: [facility] RN Member Role: Primary Care Nurse Name: Eunice Wagner NP Position: [facility] Office Staff Member Role: PCP Address: [address] [place] [address], [place] [address]- Telecom: Name: Gavin Weber RN Position: [facility] RN Member Role: Primary Care Nurse Name: Alessandra Rodriguez RN Position: [facility] RN Member Role: Primary Care Nurse Name: Rodolfo Dooley Position: [facility] RN Member Role: Primary Care Nurse Name: Myriam Roberts RN Position: [facility] RN Member Role: Primary Care Nurse Name: Amanda Alford RN Position: [facility] RN Member Role: Primary Care Nurse Name: Jany Puri RN Position: [facility] RN Member Role: Primary Care Nurse Name: Jakob Varner RN Position: [facility] RN Member Role: Primary Care Nurse Name: Lance Hannon RN Position: [facility] RN Member Role: Primary Care Nurse Name: Meagan Rai RN Position: [facility] RN Member Role: Primary Care Nurse Name: Myrtle Voss RN Position: [facility] RN Member Role: Primary Care Nurse Care Team Related Persons Name: LAVELLE CERVANTES Name: GENET COLLINS Name: DALTON COLLINS AND ANISHA Insurance Providers Guarantor name: GRISELDA Health Plan Information #: 1 Payer: [employer] Member Number: NA Policy Number: NA Group Number: NA Health Plan Information #: 2 Payer: [employer] Member Number: NA Policy Number: NA Group Number: NA Health Plan Information #: 3 Payer: [employer] Member Number: NA Policy Number: NA Group Number: NA
--- OUTSIDE RECORDS SUMMARY | 2024-05-29 14:08 | XMS_ITS | Clinical Summary ---
Author Organization 200 [facility] Address [address] [place] [address] Phone Care Team Providers Care Corporate Tutor Name Role Phone PatitoSee mejia Primary Care Provider [phone] Allergies No known active allergies Medications amLODIPine (NORVASC) 5 mg tablet 1 tablet (5 mg total) by Intragastric route 1 (one) time each day. 5 Active cholecalcifero l (VITAMIN D-3) 25 mcg (1,000 unit) capsule Take 1 capsule (1,000 Units total) by mouth 1 (one) time each day. Active divalproex (DEPAKOTE) [address] tablet Take 1 tablet (500 mg total) by mouth 2 (two) times a day. 4 Active dulaglutide (Trulicity) 4.5 mg/0.5 mL pen injector injection Inject 0.5 mL (4.5 mg total) under the skin 1 (one) time per week. Active lisinopriL (PRINIVIL,ZEST RIL) 5 mg tablet Take 1 tablet (5 mg total) by mouth 1 (one) time each day. 4 Active metFORMIN (GLUCOPHAGE) 1,000 mg tablet Take 1 tablet (1,000 mg total) by mouth 2 (two) times a day with meals. 4 Active topiramate (TOPAMAX) 50 mg tablet Take 1 tablet (50 mg total) by mouth 1 (one) time each day. 4 Active atorvastatin (LIPITOR) 80 mg tablet Take 1 tablet (80 mg total) by mouth at bedtime. Active lisinopril-hyd roCHLOROthiazi de (PRINZIDE,ZEST ORETIC) 20-12.5 mg per tablet Take 1 tablet [...] Do not crush, chew, or split. Active aspirin 81 mg chewable tablet 1 tablet (81 mg total) by Intragastric route 1 (one) time each day. 5 05/19/19 25 clopidogreL (Plavix) 75 mg tablet 1 tablet (75 mg total) by Intragastric route 1 (one) time each day. 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 [address] [place] [address] Renuka Lopez MD Acute CVA (cerebrovascular accident) (CMS/HCC) (Primary Dx); Chest pain; Right bundle branch block; Primary hypertension; Dyspnea on effort 04/15/2024 Telephone [facility]iology [facility] [address] [facility] [address] [place] [address] See Chino DO from Last 3 Months Medical History Medical History Date Comments Hyperlipidemia Paresthesia Dysphagia EDIN (obstructive sleep apnea) Seizure disorder ([facility]) Family History Medical History Relation Name Comments Stroke Mother Relation Name Status Comments Mother Social History Tobacco Use Types Packs/Day Years Used Date Smoking Tobacco: Never Smokeless Tobacco: Never Tobacco Cessation:Counseling Given: Not Answered Alcohol Use Standard Drinks/Week Comments Never 0 (1 standard drink = 0.6 oz pur e alcohol) Sex and Gender Information Value Date Recorded Sex Assigned at Not on file Legal Sex Male 9:18 AM EST Gender Identity Not on file Sexual Orientation Not on file Obstetrics History Last Filed [...] GEMUSE QTc 437 ms GEMUSE P Wave [place] 60 degrees GEMUSE R [place] 90 degrees GEMUSE T [place] 23 degrees GEMUSE ECG Interpretation Normal sinus rhythm Right bundle branch block Abnormal ECG No previous ECGs available Confirmed by RENUKA LOPEZ ([id number]) on 05/13/2024 3:11:22 PM GEMUSE 05/13/2024 2:11 PM EST 05/13/2024 3:11 PM EST Renuka Lopez MD ECG ORDERABLES Final Result GEMUSE * (ABNORMAL) CBC auto differential (04/26/2024 3:25 PM EST) WBC 9.2 4.8 - 10.8 K/mcL LAB HEMETOLOGY METHOD 04/26/2024 7:29 PM EST [facility] RBC 6.20(H) 4.50 - 5.50 M/mcL LAB HEMETOLOGY METHOD 04/26/2024 7:29 PM EST [facility] Hemoglobin 17.3 13.5 - 17.5 g/dL LAB HEMETOLOGY METHOD 04/26/2024 7:29 PM [facility] Hematocrit 49.5 42.0 - 54.0 % LAB HEMETOLOGY METHOD 04/26/2024 7:29 PM [facility] MCV 80.4 79.0 - 98.0 FL LAB HEMETOLOGY METHOD 04/26/2024 7:29 PM [facility] MCH 28.1 27.0 - 32.0 pcg LAB HEMETOLOGY METHOD 04/26/2024 7:29 PM [facility] MCHC 34.9 32.0 - 37.0 g/dL LAB HEMETOLOGY METHOD 04/26/2024 7:29 PM [facility] RDW 12.7 11.0 - 15.0 % LAB HEMETOLOGY METHOD 04/26/2024 7:29 PM [facility] Platelets 278 130 - 400 K/mcL LAB HEMETOLOGY METHOD 04/26/2024 7:29 PM [facility] MPV 11.1(H) 7.0 - 11.0 FL LAB HEMETOLOGY METHOD 04/26/2024 7:29 PM [facility] NRBC 0.0 <1.0 % LAB HEMETOLOGY METHOD 04/26/2024 7:29 PM [facility] NRBC Absolute 0.00 <0.10 K/mcL LAB HEMETOLOGY METHOD 04/26/2024 7:29 PM [facility] Neutrophils Relative 63.9 % LAB HEMETOLOGY METHOD 04/26/2024 7:29 PM [facility] Lymphocytes Relative 23.6 % LAB HEMETOLOGY METHOD 04/26/2024 7:29 PM [facility] Monocytes Relative 10.3 % LAB HEMETOLOGY METHOD 04/26/2024 7:29 PM [facility] Eosinophils Relative 1.1 % LAB HEMETOLOGY METHOD 04/26/2024 7:29 PM EST [facility] Basophils Relative 0.7 % LAB HEMETOLOGY METHOD 04/26/2024 7:29 PM [facility] Immature Granulocytes Relative 0.4 % LAB HEMETOLOGY METHOD 04/26/2024 7:29 PM [facility] Neutrophils Absolute 5.88 1.50 - 7.00 K/mcL LAB HEMETOLOGY METHOD 04/26/2024 7:29 PM [facility] Lymphocytes Absolute 2.17 1.00 - 5.00 K/mcL LAB HEMETOLOGY METHOD 04/26/2024 7:29 PM [facility] Monocytes Absolute 0.95 0.20 - 1.00 K/mcL LAB HEMETOLOGY METHOD 04/26/2024 7:29 PM [facility] Eosinophils Absolute 0.10 0.00 - 0.50 K/mcL LAB HEMETOLOGY METHOD 04/26/2024 7:29 PM EST [facility] Basophils Absolute 0.06 0.00 - 0.20 K/mcL LAB HEMETOLOGY METHOD 04/26/2024 7:29 PM [facility] Immature Granulocytes Absolute 0.04(H) 0.00 - 0.03 K/mcL LAB HEMETOLOGY METHOD 04/26/2024 7:29 PM [facility] Blood Venous blood specimen / Unknown Venipuncture / Unknown 04/26/2024 3:25 PM EST 04/26/2024 3:25 PM EST us Bryan Cueva LAB BLOOD ORDERABLES Final Resul [facility] [address] [place] [address], from Last 3 Months Insurance [facility] [employer] Care Teams Corporate Tutor Relationship Specialty Start Date End Date See Chino DO [address] [place] [address] VANESSA John [phone] PCP - General 08/03/23
--- OUTSIDE RECORDS SUMMARY | 2024-05-29 14:08 | XMS_ITS | Encounter Summary ---
Author Organization [facility] Address [address] [place] [address] Care Team Providers Care Rn Dialysis Name Role Phone See Chino DO Primary Care Provider [phone] Reason for Visit * Reason Comments Establish Care Initial Visit3 * Consultation (Routine) - Closed Specialty Diagnoses / Procedures Referred By Contac t Referred To Contact Cardiology Diagnoses Chest pain Right bundle branch block See Chino DO [address] [place] [phone] Phone: tel: fax: [facility]iology [address] [place] [address] Phone: tel: fax: Referral ID Status Reason Start Date Expiration Date V isits Requested Visits Authorized [id number] Closed Specialty Services Required 04/30/2024 04/30/2025 1 1 Encounter Details Date Type Department Care Team (Late st Contact Info) Description 05/13/2024 2:00 PM EST Office Visit [facility] - [address] [facility] [address] [place] [address] Renuka Lopez MD [address] [place] [address] Acute CVA (cerebrovascular accident) (CMS/HCC) (Primary Dx); [...] on file Sexual Orientation Not on file documented as of this [...] PM ESTAssociated Problem(s): Acute CVA (cerebrovascular accident) ([facility]) - Communicate with neurologist ERNIE Dorsey at [facility] to discuss the likelihood of an [...] Lopez MD - 05/13/2024 2:00 PM EST [facility] PCP: See Chino DO BACKGROUND [...] to follow with his own neurologist at [facility] Sophy Dupont NP. In May 2023-about a [...] youngest child. 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) - Communicate with neurologist ERNIE Dorsey at [facility] to discuss the likelihood of an [...] GEMUSE QTc 437 ms GEMUSE P Wave [place] 60 degrees GEMUSE R [place] 90 degrees GEMUSE T [place] 23 degrees GEMUSE ECG Interpretation Normal sinus rhythm Right bundle branch block Abnormal ECG No previous ECGs available Confirmed by RENUKA LOPEZ ([id number]) on 05/13/2024 3:11:22 PM GEMUSE 05/13/2024 2:11 PM EST 05/13/2024 3:11 PM EST Renuka Lopez MD ECG ORDERABLES Final Result GEMUSE documented in this encounter Visit Diagnoses Diagnosis Acute CVA (cerebrovascular accident) (CMS/[facility])- Primary Chest pain Unspecified chest pain Right bundle branch block Primary hypertension Unspecified essential hypertension Dyspnea on effort Other dyspnea and respiratory abnormality documented in this encounter Historical Medications * This list may reflect changes made after this encounter. omeprazole OTC (PriLOSEC OTC) 20 mg EC tablet Take 1 tablet (20 mg total) by mouth 1 (one) time each day. Do not crush, chew, or split. FLUoxetine (PROzac) 20 mg capsule Take 1 capsule (20 mg total) by mouth 1 (one) time each day. sertraline (ZOLOFT) 25 mg tablet Take 1 tablet (25 mg total) by mouth 1 (one) time each day. lisinopril-hydro CHLOROthiazide (PRINZIDE,ZESTOR ETIC) 20-12.5 mg per tablet Take 1 tablet [...] times a day with meals. 04/11/2024 lisinopriL (PRINIVIL,ZESTRI L) 5 mg tablet Take 1 tablet (5 [...] by mouth 1 (one) time each day. amLODIPine (NORVASC) 5 mg tablet 1 tablet (5 mg total) by Intragastric route 1 (one) time each day. 04/19/2024 clopidogreL (Plavix) 75 mg tablet 1 tablet (75 mg total) by Intragastric route 1 (one) time each day. 04/19/2024 5 aspirin 81 mg chewable tablet 1 tablet (81 mg total) by Intragastric route 1 (one) time each day. 04/19/2024 5 added in this encounter Orders Outpatient Referral Count Last Ordered Date Fir st Ordered Date AMB REFERRAL TO CARDIOLOGY 1 05/13/2024 documented in this encounter Care Teams Rn Dialysis Relationship Specialty Start Date End Date See Chino DO [address] [place] [phone] PCP - General 08/03/23 documented as of this encounter
--- OUTSIDE RECORDS SUMMARY | 2024-05-29 14:08 | XMS_ITS | Data Portability ---
Author Organization [place] [facility] Address [address] [place] [phone] Assessment Encounter Date Assessment Date Assessment LastModified [...] Recorded Time Obstructi ve sleep apnea syndrome 03056701 Active 2017 Obstructi ve sleep apnea (adult) (pediatri c); Note: Date Diagnosed : 8 5:11 PM (G47.33) Not Available [facility] 4 03:31:36 Body mass index 25-29 - overweigh t 473139395 Active 2018 Body mass index (BMI) 28.0-28.9 , adult; Note: Date Diagnosed : 9 3:09 PM (Z68.28) Not Available [facility] 4 03:31:36 Sensorine ural hearing loss of bilateral ears 236921209 Active 2023 TRISH EDDY [address] [facility] [place] [address], [facility] [place], [address] , [facility] - [facility] 4 15:29:39 Impacted cerumen of bilateral ears 80793020798 Active 2023 JAISON HINDS MD [address] [facility] [place] [address], [facility] [place], [address] , [facility] - [facility] 4 16:24:22 Central perforati on of left tympanic membrane 62390163352 Active 2023 JAISON HINDS MD [address] [place] [address],[place] [address], [facility] [place], [address] , [facility] - [facility] 4 16:24:35 Problem Notes None recorded. Procedures Surgical History Date Name Laterality Status Provider Name and Address Organization Details Recorded Time 02/28/20 24 Cerumen removal with microscope bilateral completed JAISON HINDS MD [address] [place] [address],[place] [address], [place], [address], [facility] 02/28/2024 16:23:57 02/28/20 24 Tympanometry (51764) completed TRISH EDDY [address] [facility],[place] [address], [place], [address], [facility] 02/28/2024 15:29:25 Imaging Results Imaging Date Name Status LastModified by Organiz ation Details LastModified Time 02/29/2024 audiogram completed [facility] Information no t available 02/29/2024 10:43:30 Procedure Notes None recorded. Medical Equipment None Reported. Allergies No known drug allergies Medications Name Sig Start Date Stop Date Status Note LastModified by Organization Details LastModified Time atorvasta tin 40 mg tablet 02/27 completed Medicatio n ID: [id number] Br and Name: atorvasta tin Send Method: [...] mg capsule 02/27 completed Medicatio n ID: [id number] Pr escribed By Name: Jess Mora Name: [...] mg tablet 2023 active Medicatio n ID: [id number] Br and Name: lisinopri l Send Method: E-Prescri bed Subs Allowed: subs OK Medica tionGener icName: lisinopri l Not Available Not Available Not Available fluoxetin e 20 mg capsule 02/27 completed Medicatio n ID: [id number] Br and Name: fluoxetin e Send Method: [...] 24hr (osmotic) 02/27 completed Medicatio n ID: [id number] Br and Name: metformin Send Method: E-Prescri bed Subs Allowed: subs OK Medica tionGener icName: metformin Not Available Not Available Not Available cholecalc iferol (vitamin D3) 1,250 mcg (50,000 unit) capsule 02/27 completed Not Available Not Available Not Available Invokana 2017 active Medicatio n ID: [id number] Br and Name: invokana Send Method: E-Prescri bed Subs Allowed: subs OK Medica tionGener icName: invokana Not Available Not Available Not Available Bydureon BCise 2 mg/0.85 mL subcutane ous auto-inje ctor 02/27 completed Medicatio n ID: [id number] Br and Name: Bynorisreon BCise Sen d [...] SNOMED-CT Code Diagnosis ICD10 Code Diagnosis Note [id number] JAISON HINDS MD [facility] [address] [address] 02/28/2024 14:53:35 02/28/2024 15:46:57 Sensorineural hearing loss of bilateral ears [id number] H90.3 Previously found SNHL. Denied testing today. Tympanomet ry: Right: Type {{A* B B with large ECV C}} Left: {{A* B B with large ECV C}} Impacted c erumen of bilateral ears 6897201003 239162 H61.23 Central pe rforation of left tympanic membrane [id number] 108875 H72.02 Health Concerns Section Related Observation LastModified [...] which shows normal tympanometry. JAISON HINDS MD [address] [place] [address], [address], [facility] - [facility] 02/28/2024 16:25:09
== END 2024-05-29 14:03 | disposition home or self-care (01) ==
PROVIDERS: PCP Internal Medicine; Visit Provider Nurse Practitioner Family
DX: I69.391 Dysphagia following cerebral infarction (principal); I69.322 Dysarthria following cerebral infarction; I69.392 Facial weakness following cerebral infarction; Z96.82 Presence of neurostimulator; G47.33 Obstructive sleep apnea (adult) (pediatric); G40.A09 Absence epileptic syndrome, not intractable, without status epilepticus; R41.3 Other amnesia; G62.9 Polyneuropathy, unspecified
CPT/HCPCS: 99214

== ENCOUNTER 2024-06-04 17:32 | Outpatient (REF) | payer OTHER, SELFPAY ==
[2024-06-06 06:37] LABS: Creatinine, 24Hr Urine 1.47 g/24 h (0.50-2.15); PEU-PROT/CRE Ratio mg/mg 0.056 (<0.100); PEU24-Albumin Urine 100 %; PEU24-Alpha 1 Globulin 0 %; PEU24-Alpha 2 Globulin 0 %; PEU24-Beta Globulin 0 %; PEU24-Gamma Globulin 0 %; Total Protein 24Hr Urine 83 mg/24 h (<150); Total Protein/Creat Ratio 24h 56 mg/g creat (<100)
== END 2024-06-04 17:33 | disposition home or self-care (01) ==
LOC: HO.LNP 17:32
PROVIDERS: Visit Provider Nurse Practitioner Family
DX: G62.9 Polyneuropathy, unspecified (principal); R20.2 Paresthesia of skin; R41.3 Other amnesia; R90.82 White matter disease, unspecified; G40.A09 Absence epileptic syndrome, not intractable, without status epilepticus
CPT/HCPCS: 82570; 84156; 84166

== ENCOUNTER 2024-06-24 13:50 | Outpatient (REF) | payer OTHER, SELFPAY ==
--- NOTE | ~2024-06-24 | FL_ITS ---
EXAMINATION: XR MODIFIED BARIUM SWALLOW CLINICAL INFORMATION: Dysphagia following cerebral infarction. COMPARISON: None available. TECHNIQUE: Routine modified barium swallow was performed following oral administration of thin barium in upright view. FINDINGS: Following oral administration of thin barium in upright lateral view under fluoroscopy there is spontaneous laryngeal penetration and aspiration seen. Subsequently thin barium was administered orally and patient had difficulty swallowing with most of the barium seen in the piriform sinuses. The exam was hence terminated. FLUOROSCOPY TIME: 1 minute 14 seconds DOSE AREA PRODUCT: 1226 uGy-m2 (microgray-meter squared) FL/FL Modified Barium Swallow IMPRESSION: Bipin laryngeal penetration and aspiration with thin barium. On administration of thick barium there is propagation from oral cavity through the pharynx with the neck flexed. No passage of barium was seen into the esophagus. Most of it pooled in the piriform sinuses. Correlate with speech therapy report. Electronically signed by: Neri Madrid MD 06/28/2024 10:00 AM EDT
--- OUTSIDE RECORDS SUMMARY | 2024-06-24 15:41 | XMS_ITS | Data Portability ---
Author Organization [place] - [facility], Allergy Address [address] [place] [id number] Assessment Encounter Date Assessment Date Assessment LastModified [...] Organization Details Last Modified Time Details Appointments Establish ed 15 2024 11:00A M FREEMAN ROSALES MD Not available Not available Not available Lab None recorded. Referral None recorded. Procedures None recorded. Surgeries None recorded. Imaging None recorded. Medication Orders None recorded. Patient TargetsNo targets recorded. Patient InstructionsNo instructions [...] Recorded Time Obstructi ve sleep apnea syndrome 94609930 Active 2017 Obstructi ve sleep apnea (adult) (pediatri c); Note: Date Diagnosed : 8 5:11 PM (G47.33) Not Available [facility] 4 03:31:36 Body mass index 25-29 - overweigh t 721029673 Active 2018 Body mass index (BMI) 28.0-28.9 , adult; Note: Date Diagnosed : 9 3:09 PM (Z68.28) Not Available [facility] 03:31:36 Sensorine ural hearing loss of bilateral ears 062403629 Active 2023 TRISH EDDY [address] [facility],[place] [address], [place], [address] , [facility] - [facility] 4 15:29:39 Impacted cerumen of bilateral ears 95910209115 37165 Active 2023 JAISON HINDS MD [address] [place] [address],[place] [address], [facility] [place], [address] , [facility] - [facility] [place] 4 16:24:22 Central perforati on of left tympanic membrane 89100778256 Active 2023 JAISON HINDS MD [address] [place] [address],[place] [address], [place], [address] , [facility] - [facility] 4 16:24:35 Problem Notes None recorded. Procedures Surgical History Date Name Laterality Status Provider Name and Address Organization Details Recorded Time 02/28/20 24 Cerumen removal with microscope bilateral completed JAISON HINDS MD [address] [place] [address],[place] [address], [place], [address], [facility] 02/28/2024 16:23:57 02/28/20 24 Tympanometry (12761) completed TRISH EDDY [address] [facility],[place] [address], [place], [address], [facility] 02/28/2024 15:29:25 Imaging Results Imaging Date Name Status LastModified by Organiz ation Details LastModified Time 02/29/2024 audiogram completed [facility] Information no t available 02/29/2024 10:43:30 Procedure Notes None recorded. Medical Equipment None Reported. Allergies No known drug allergies Medications Name Sig Start Date Stop Date Status Note LastModified by Organization Details LastModified Time atorvasta tin 40 mg tablet 02/27 completed Medicatio n ID: [id number] Br and Name: atorvasta tin Send Method: [...] mg capsule 02/27 completed Medicatio n ID: [id number] Pr escribed By Name: Jess Mora Name: Keflex Se nd Method: E-Prescri bed Subs Allowed: subs OK Specia l Instructi on: 1 pill PO QID x 7 days [facility] cationGen ericName: Keflex Not Available Not [...] mg tablet 2023 active Medicatio n ID: [id number] Br and Name: lisinopri l Send Method: E-Prescri bed Subs Allowed: subs OK Medica tionGener icName: lisinopri l Not Available Not Available Not Available fluoxetin e 20 mg capsule 02/27 completed Medicatio n ID: [id number] Br and Name: fluoxetin e Send Method: [...] 24hr (osmotic) 02/27 completed Medicatio n ID: [id number] Br and Name: metformin Send Method: E-Prescri bed Subs Allowed: subs OK Medica tionGener icName: metformin Not Available Not Available Not Available cholecalc iferol (vitamin D3) 1,250 mcg (50,000 unit) capsule 02/27 completed Not Available Not Available Not Available Invokana 2017 active Medicatio n ID: [id number] Br and Name: invokana Send Method: E-Prescri bed Subs Allowed: subs OK Medica tionGener icName: invokana Not Available Not Available Not Available Bydureon BCise 2 mg/0.85 mL subcutane ous auto-inje ctor 02/27 completed Medicatio n ID: [id number] Br and Name: Bydureon BCise Sen d Method: E-Prescri bed Subs [...] History Nothing Reported. Medical History Condition Response Depression Y Stroke Y Anxiety Y Migraines Y Diabetes Y Hypertension Y Past Encounters Encounter ID Performer Location Encounter Start Date Encounter Closed Date Diagnosis/Indication Diagnosis SNOMED-CT Code Diagnosis ICD10 Code Diagnosis Note [id number] JAISON HINDS MD [facility] [address] [phone] 02/28/2024 14:53:35 02/28/2024 15:46:57 Sensorineural hearing loss of bilateral ears [id number] H90.3 Previously found SNHL. Denied testing today. Tympanomet ry: Right: Type {{A* B B with large ECV C}} Left: {{A* B B with large ECV C}} Impacted c erumen of bilateral ears 1691066379 003313 H61.23 Central pe rforation of left tympanic membrane 2337636874 644802 H72.02 Health Concerns Section Related Observation LastModified [...] which shows normal tympanometry. JAISON HINDS MD [address] [place] [address], [phone], [facility] - [facility] 02/28/2024 16:25:09
--- OUTSIDE RECORDS SUMMARY | 2024-06-24 15:41 | XMS_ITS | Continuity of Care Document ---
Author Organization [facility] Address [address] [place] [address]- Care Team Providers [employer] Name Role Phone Eunice Wagner NP Primary Care Physician Encounter 04/20/24 - 05/31/24 [facility] Visiting [facility] [address] [place] [address]- Discharge Disposition: CLIENT NO LONGER REQUIRES SKILLED CARE Encounter Type: Disch [facility] Allergies, Adverse Reactions, Alerts Substance Criticality Severity Reaction Reaction Severity Status Lactose Diarrhea Active Medications amLODIPine 5 mg oral tablet 5 mg, G Tube, Daily, # 30 tablet, Refills 0, Tot. Refills 0, Maintenance, 04/19/24 2:06:00 PM EST, Route to Pharmacy Electronically, [id number], Partial fill upon patient request [...] Maintenance, 04/19/24 2:07:00 PM EST, Chew Tablet, [id number], Partial fill upon patient [...] 2:05:00 PM EST, Route to Pharmacy Electronically, [id number], Partial fill upon patient [...] Team Personnel Name: Gunner Hinds RN Position: [facility] RN Member Role: Primary Care Nurse Name: Madelaine Ohara RN Position: [facility] RN Member Role: Primary Care Nurse Name: Eddie Gil RN Position: [facility] RN Member Role: Primary Care Nurse Name: Michaela Hadley RN Position: [facility] RN Member Role: Primary Care Nurse Name: Guanaco Hdez RN Position: [facility] RN Member Role: Primary Care Nurse Name: Jimena Abdalla RN Position: [facility] RN Member Role: Primary Care Nurse Name: Eunice Wagner NP Position: [facility]U Office Staff Member Role: PCP Address: [address] [place] [address] [address] [place] [address]- [employer]: Name: Gavin Weber RN Position: [facility] RN Member Role: Primary Care Nurse Name: Alessandra Rodriguez RN Position: [facility] RN Member Role: Primary Care Nurse Name: Rodolfo Dooley Position: [facility] RN Member Role: Primary Care Nurse Name: Myriam Roberts RN Position: [facility] RN Member Role: Primary Care Nurse Name: Amanda Alford RN Position: [facility] RN Member Role: Primary Care Nurse Name: Jany Puri RN Position: [facility] RN Member Role: Primary Care Nurse Name: Jakob Varner RN Position: [facility] RN Member Role: Primary Care Nurse Name: Lance Hannon RN Position: [facility] RN Member Role: Primary Care Nurse Name: Meagan Rai RN Position: [facility] RN Member Role: Primary Care Nurse Name: Myrtle Voss RN Position: [facility] RN Member Role: Primary Care Nurse Care [...]
--- OUTSIDE RECORDS SUMMARY | 2024-06-24 15:41 | XMS_ITS | Clinical Summary ---
Author Organization [facility] Address [address] [place] [address] Phone Care Team Providers Care Small Lot Operator Name Role Phone PatitoSee mejia Primary Care Provider [phone] Allergies No known active allergies Medications amLODIPine (NORVASC) 5 mg tablet 1 tablet (5 mg total) by Intragastric route 1 (one) time each day. 5 Active cholecalciferol (VITAMIN D-3) 25 mcg (1,000 [...] 1 (one) time per week. Active lisinopriL (PRINIVIL,ZESTR IL) 5 mg tablet Take 1 tablet (5 [...] mg total) by mouth at bedtime. 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 without mass effect or hemorrhage Assessment & Plan (05/13/2024 5:05 PM EST): - Communicate with neurologist ERNIE Dorsey at [facility] to discuss the likelihood of an embolic [...] Description 05/13/2024 2:00 PM EST Office Visit [facility] [address] [place] [address] Renuka Lopez MD Acute CVA (cerebrovascular accident) ([facility]) (Primary Dx); Chest pain; Right bundle branch block; Primary hypertension; Dyspnea on effort 04/15/2024 Telephone [facility] [address] [place] [phone] See [place] DO from Last 3 Months Medical History Medical History Date Comments Hyperlipidemia Paresthesia Dysphagia EDIN (obstructive sleep apnea) Seizure disorder ([facility]) Family History Medical History Relation Name Comments [...] of 3 - 19+ 3-dose series) 1985 Pneumococcal Vaccine: 50+ Years (1 of 1 - PCV) 2016 Zoster Vaccines (1 of 2) 2016 Cholesterol [...] patient's age to complete this topic Meningococcal B Vacine Aged Out No lo nger eligible based on patient's age to complete [...] ECG 12 lead (05/13/2024 2:11 PM EST) Pathologist [facility] Ventricular Rate ECG 93 BPM GEMUSE Atrial Rate 93 BPM GEMUSE P-R Interval 140 ms GEMUSE QRS Duration 146 ms GEMUSE Q-T Interval 352 ms GEMUSE QTc 437 ms GEMUSE P Wave [place] 60 degrees GEMUSE R [place] 90 degrees GEMUSE T [place] 23 degrees GEMUSE ECG Interpretation Normal sinus rhythm Right bundle branch block Abnormal ECG No previous ECGs available Confirmed by RENUKA LOPEZ ([id number]) on 05/13/2024 3:11:22 PM GEMUSE 05/13/2024 2:11 PM EST 05/13/2024 3:11 PM EST Renuka Lopez MD ECG ORDERABLES Final Result GEMUSE * (ABNORMAL) CBC auto differential (04/26/2024 3:25 PM EST) Pathologist [facility] WBC 9.2 4.8 - 10.8 K/mcL LAB HEMETOLOGY METHOD 04/26/2024 7:29 PM EST [facility] RBC 6.20(H) 4.50 - 5.50 M/mcL LAB HEMETOLOGY METHOD 04/26/2024 7:29 PM EST [facility] Hemoglobin 17.3 13.5 - 17.5 g/dL LAB HEMETOLOGY METHOD 04/26/2024 7:29 PM EST [facility] Hematocrit 49.5 42.0 - 54.0 % LAB HEMETOLOGY METHOD 04/26/2024 7:29 PM [facility] MCV 80.4 79.0 - 98.0 FL LAB HEMETOLOGY METHOD 04/26/2024 7:29 PM [facility] MCH 28.1 27.0 - 32.0 pcg LAB HEMETOLOGY METHOD 04/26/2024 7:29 PM [facility] MCHC 34.9 32.0 - 37.0 g/dL LAB HEMETOLOGY METHOD 04/26/2024 7:29 PM [facility] RDW 12.7 11.0 - 15.0 % LAB HEMETOLOGY METHOD 04/26/2024 7:29 PM [facility] Platelets 278 130 - 400 K/mcL LAB HEMETOLOGY METHOD 04/26/2024 7:29 PM [facility] MPV 11.1(H) 7.0 - 11.0 FL LAB HEMETOLOGY METHOD 04/26/2024 7:29 PM [facility] NRBC 0.0 <1.0 % LAB HEMETOLOGY METHOD 04/26/2024 7:29 PM [facility] NRBC Absolute 0.00 <0.10 K/mcL LAB HEMETOLOGY METHOD 04/26/2024 7:29 PM [facility] Neutrophils Relative 63.9 % LAB HEMETOLOGY METHOD 04/26/2024 7:29 PM [facility] Lymphocytes Relative 23.6 % LAB HEMETOLOGY METHOD 04/26/2024 7:29 PM [facility] Monocytes Relative 10.3 % LAB HEMETOLOGY METHOD 04/26/2024 7:29 PM [facility] Eosinophils Relative 1.1 % LAB HEMETOLOGY METHOD 04/26/2024 7:29 PM [facility] Basophils Relative 0.7 % LAB HEMETOLOGY METHOD 04/26/2024 7:29 PM EST [facility] Immature Granulocytes Relative 0.4 % LAB HEMETOLOGY METHOD 04/26/2024 7:29 PM [facility] Neutrophils Absolute 5.88 1.50 - 7.00 K/mcL LAB HEMETOLOGY METHOD 04/26/2024 7:29 PM [facility] Lymphocytes Absolute 2.17 1.00 - 5.00 K/mcL LAB HEMETOLOGY METHOD 04/26/2024 7:29 PM [facility] Monocytes Absolute 0.95 0.20 - 1.00 K/mcL LAB HEMETOLOGY METHOD 04/26/2024 7:29 PM [facility] Eosinophils Absolute 0.10 0.00 - 0.50 K/mcL LAB HEMETOLOGY METHOD 04/26/2024 7:29 PM [facility] Basophils Absolute 0.06 0.00 - 0.20 K/mcL LAB HEMETOLOGY METHOD 04/26/2024 7:29 PM [facility] Immature Granulocytes Absolute 0.04(H) 0.00 - 0.03 K/mcL LAB HEMETOLOGY METHOD 04/26/2024 7:29 PM [facility] Blood Venous blood specimen / Unknown Venipuncture / Unknown 04/26/2024 3:25 PM EST 04/26/2024 3:25 PM EST us Bryan Cueva LAB BLOOD ORDERABLES Final Resul t [facility] [address] [place] [address], from Last 3 Months Insurance [facility] Care Teams Small Lot Operator Relationship Specialty Start Date End Date See [place] DO [address] [place] [phone] PCP - General 08/03/23
== END 2024-06-24 13:51 | disposition home or self-care (01) ==
LOC: HO.XRAY 13:50
PROVIDERS: PCP Internal Medicine; Visit Provider Nurse Practitioner Family
DX: I69.391 Dysphagia following cerebral infarction (principal); I63.9 Cerebral infarction, unspecified; Z96.82 Presence of neurostimulator; Z93.1 Gastrostomy status
CPT/HCPCS: 74230

== ENCOUNTER → 2024-06-24 14:30 | Outpatient (BNV) | payer OTHER, SELFPAY | PROVIDERS: PCP Internal Medicine; Visit Provider Radiology Diagnostic Radiology | DX: R06.00 Dyspnea, unspecified (principal) | CPT/HCPCS: 74230 ==

== ENCOUNTER 2024-08-01 13:21 | Outpatient (AMB) | payer OTHER, SELFPAY ==
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
[2024-08-01 13:26] VITALS: BP 120/84; PULSE 85; O2SAT 98; BMI 25.5
--- OUTSIDE RECORDS SUMMARY | 2024-08-01 16:21 | XMS_ITS | Data Portability ---
Author Organization [place] - [facility], Allergy Address [address] [address] Assessment Encounter Date Assessment Date Assessment LastModified by Organization Details LastModified Time 02/28/2024 02/28/2024 1. Cerumen impaction, bilateral Resolved s/p cerumen removal. Normal otomicroscopic ear exam. PLAN: - Follow-up prn - Advised to abstain from qtip use 2. Prior tympanic membrane perforation Resolved and healed today. Follow-up as needed [email or web address] Not available 02/28/2024 16:24:18 07/25/2024 07/25/2024 Patient has dysphagia and receives all of his nutrition through tube feeds. Fiberoptic laryngoscopy today was benign with mobile vocal cords bilaterally and no abnormality of the tongue base or pooling of secretions. 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 Swallow therapy may also be valuable. Defer to neurology to initiate referral to swallow therapy based on their experience with other patients of similar stroke location [email or web address] Not available 07/25/2024 11:00:03 Plan of Treatment Reminders Order Date Submit [...] Recorded Time Obstructi ve sleep apnea syndrome 06228555 Active 2017 Obstructi ve sleep apnea (adult) (pediatri c); Note: Date Diagnosed : 8 5:11 PM (G47.33) Not Available [facility] 4 03:31:36 Body mass index 25-29 - overweigh t 863017216 Active 2018 Body mass index (BMI) 28.0-28.9 , adult; Note: Date Diagnosed : 9 3:09 PM (Z68.28) Not Available [facility] 4 03:31:36 Sensorine ural hearing loss of bilateral ears 170255008 Active 2023 TRISH EDDY [address], [place], [address] , [place] - [facility] 4 15:29:39 Impacted cerumen of bilateral ears 58912196554 20649 Active 2023 JAISON HINDS MD [address], [place], [place], [address] , [place] - [facility] 4 16:24:22 Central perforati on of left tympanic membrane 41867338966 67935 Active 2023 JAISON HINDS MD [address] [facility] [address], [place], [place], [address] , [place] - [facility] 4 16:24:35 Dysphagia 94198740 Active 2024 FREEMAN VAZQUEZ MD [address], [place], [address] , [place] - [facility] 5 10:58:33 Dysphonia 82364932 Active 2024 FREEMAN VAZQUEZ MD [address], [place], [address] , [place] [facility] 5 11:02:57 Problem Notes None recorded. Procedures Surgical History Date Name Laterality Status Provider Name and Address Organization Details Recorded Time 07/26/19 25 FOL_DP completed FREEMAN VAZQUEZ MD 100 [facility],[address], [address], [facility] 07/25/2024 10:58:26 02/28/20 24 Cerumen removal with microscope bilateral completed JAISON HINDS MD [address] [place] [address],[address], [address], [facility] 02/28/2024 16:23:57 02/28/20 24 Tympanometry (17281) completed TRISH EDDY 100 [facility],[address], [address], [facility] 02/28/2024 15:29:25 Imaging Results Imaging Date Name Status LastModified by Organiz ation Details LastModified Time 02/29/2024 audiogram completed BARCODE Information no t available 02/29/2024 10:43:30 Procedure Notes None recorded. Medical Equipment None Reported. Allergies No known drug allergies Medications Name Sig Start Date Stop Date Status Note LastModified by Organization Details LastModified Time atorvasta tin 40 mg tablet 02/27 completed Medicati on ID: [id number] B rand Name: atorvast atin Sen d Method: E-Prescr ibed Sub s Allowed: subs OK Medic ationGen ericName : atorvast atin Not Available Not Available Not Available metformin [...] Available Keflex 500 mg capsule 02/27 completed Medicati on ID: [id number] P charlyrileda d By Name: Jess Mora nd Name: Keflex S end Method: E-Prescr ibed Sub s Allowed: subs OK Speci al Instruct ion: 1 pill PO QID x 7 days Med icationG enericNa me: Keflex Not Available Not Available Not Available [...] divalproe x 500 mg tablet,de layed release 07/25 completed Not Available Not Available Not Available aspirin 81 mg tablet,de layed release active Not Available Not Available Not Available ofloxacin 0.3 % ear drops 02/27 completed Not Available Not Available Not Available metformin 1,000 mg tablet active Not Available Not Available Not Available sertralin e 25 mg tablet 02/27 completed Not Available Not Available Not Available omeprazol e 20 mg capsule,d elayed release Take 1 capsule every day by oral route. active Not Available Not Available No t Available lisinopri l 20 mg-hydroc hlorothia zide 25 mg tablet 02/27 completed Not Available Not Available Not Available lisinopri l 5 mg tablet 2023 active Medicati on ID: [id number] B rand Name: lisinopr il Send Method: E-Prescr ibed Sub s Allowed: subs OK Medic ationGen ericName : lisinopr il Not Available Not Available Not Available fluoxetin e 20 mg capsule 02/27 completed Medicati on ID: [id number] B rand Name: fluoxeti ne Send Method: E-Prescr ibed Sub s Allowed: subs OK Medic ationGen ericName : fluoxeti ne Not Available Not Available Not Available sertralin [...] tablet,ex tended release 24hr (osmotic) 02/27 completed Medicati on ID: [id number] B rand Name: khushbu n Send Method: E-Prescr ibed Sub s Allowed: subs OK Medic ationGen ericName : metformi n Not Available Not Available Not Available sertralin e active Not Available Not Available Not Available atorvasta tin active Not Available Not Available Not Available fluoxetin e active Not Available Not Available Not Available amlodipin e active Not Available Not Available Not Available cholecalc iferol (vitamin D3) 1,250 mcg (50,000 unit) capsule 02/27 completed Not Available Not Available Not Available Invokana 2017 active Medicati on ID: [id number] B rand Name: invokana Send Method: E-Prescr ibed Sub s Allowed: subs OK Medic ationGen ericName : invokana Not Available Not Available Not Available Bydureon BCise 2 mg/0.85 mL subcutane ous auto-inje ctor 02/27 completed Medicati on ID: [id number] B rand Name: Bydureon BCise Se nd Method: E-Prescr ibed Sub s Allowed: subs OK Medic ationGen ericName : Bydureon BCise Not Available Not Available Not Available Trulicity 3 mg/0.5 mL subcutane ous pen injector 02/27 completed Not Available Not Available Not Available Trulicity 4.5 mg/0.5 mL subcutane ous pen injector active Not Available Not Available Not Available Vitals Date Recorded Body weight Body mass index (BMI) Body height Provider Name and Address Organization Details Last Updated DateTime 07/25/2024 48595.7 g 25.8 kg/m2 172.72 cm [facility] 07/25/2024 10:41:20 Social History None recorded. Functional Status None recorded. Mental Status None recorded. Family History Nothing Reported. Medical History Condition Response Diabetes Y Migraines Y Stroke Y Hypertension Y Anxiety Y Depression Y Past Encounters Encounter ID Performer Location Encounter Start Date Encounter Closed Date Diagnosis/Indication Diagnosis SNOMED-CT Code Diagnosis ICD10 Code Diagnosis Note [id number] JAISON HINDS MD [facility] [address] [address] 02/28/2024 14:53:35 02/28/2024 15:46:57 Sensorineural hearing loss of bilateral ears 479516833 H90.3 Previously found SNHL. Denied testing today. Tympanomet ry: Right: Type {{A* B B with large ECV C}} Left: {{A* B B with large ECV C}} Impacted c erumen of bilateral ears 9303696216 212145 H61.23 Central pe rforation of left tympanic membrane 5550112174 691563 H72.02 [id number] FREEMAN VAZQUEZ MD [facility] [address] [address] 07/25/2024 10:33:23 07/25/2024 11:03:24 Dysphagia 60710310 R13.10 Dysphonia 28725440 R49.9 Slight nasal leak when speaking likely related to left glossophar yngeal weakness as his soft palate pulls to the right. Health Concerns Section Related Observation LastModified by Organization Detai ls LastModified Time None Recorded Concern Status LastModified by Organization Details LastModified Time None Recorded Advance Directives Directive None Recorded Payers Encounter Date Sequence Insurance Name Policy Number Policy Bullard Covered Member ID Bullard Member ID Guarantor Name 07/25/[address] [facility] PL[facility] (MEDICAID HMO) [id number] Darrion Milian [id number] Darrion iMlian Jr Notes Date Note Type Note Provider Name and Address Organization Details Recorded Time 02/28/2024 text/html This is a 58-yea r-old gentleman who presents after a left eardrum [...] which shows normal tympanometry. 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 stopped using [employer] when no longer driving FREEMAN VAZQUEZ MD [address] [place] [address],[address], [address], [place] - [facility] 07/25/2024 11:03:32
--- OUTSIDE RECORDS SUMMARY | 2024-08-01 16:21 | XMS_ITS | Clinical Summary ---
Author Organization [address] [facility] Address [address] [place] [address] Phone Care Team Providers Care Business Loan Processor Name Role Phone PatitoSee mejia Primary Care Provider [phone] Allergies No known active allergies Medications amLODIPine [...] Cardiology ECG 12 lead Acute CVA (cerebrovascular a ccident) ([facility] V24, [facility] V28) 05/10/2024 Overview (05/13/2024): - Patient presented with severe vertigo symptoms with nausea and vomiting in May 2023 to [facility]-this was thought to have been a possible TIA -He then presented in late March 2024 with symptoms of slurred speech, dysphagia-MRI during this visit showed 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 without mass effect or hemorrhage Assessment & Plan (05/13/2024 5:05 PM EST): - Communicate with neurologist ERNIE Dorsey at [facility] to discuss the likelihood of an [...] Description 05/13/2024 2:00 PM EST Office Visit [facility] [address] [place] [address] Renuka Lopez MD Acute CVA (cerebrovascular accident) ([facility] V24, [facility] V28) (Primary Dx); Chest pain; Right bundle branch block; Primary hypertension; Dyspnea on effort from Last 3 Months Medical History Medical History Date Comments Hyperlipidemia Paresthesia Dysphagia EDIN (obstructive sleep apnea) Seizure disorder ([facility] V24, [facility] V28) Family History Medical History Relation Name Comments [...] Annual BMP Blood Test 11/10/2023 COVID-19 Vaccine (2023-2 5 season) 2023 08/30/2020, 08/10/2020 Diabetes: Annual Urine Albumin-Creatinine Ratio (uACR) 04/26/2024 Diabetes: Blood Sugar Contro l Test (HGBA1C) 04/26/2024 Influenza Vaccine (Season Ended) 2024 HIB Vaccines Aged Out No longer eligi [...] age to complete this topic Meningococcal B Vaccine Aged Out No l onger eligible based on patient's age to complete [...] EST Chest pain Right bundle branch block from Last 3 Months Results * ECG 12 lead (05/13/2024 2:11 PM EST) Ventricular Rate ECG 93 BPM GEMUSE Atrial Rate 93 BPM GEMUSE P-R Interval 140 ms GEMUSE QRS Duration 146 ms GEMUSE Q-T Interval 352 ms GEMUSE QTc 437 ms GEMUSE P Wave [place] 60 degrees GEMUSE R [place] 90 degrees GEMUSE T [place] 23 degrees GEMUSE ECG Interpretation Normal sinus rhythm Right bundle branch block Abnormal ECG No previous ECGs available Confirmed by RENUKA LOPEZ ([id number]) on 05/13/2024 3:11:22 PM GEMUSE 05/13/2024 2:11 PM EST 05/13/2024 3:11 PM EST us Renuka Lopez MD ECG ORDERABLES Final Result GEMUSE from Last 3 Months Insurance [facility] [employer] Care Teams Business Loan Processor Relationship Specialty Start Date End Date See Ch[place] DO [address] [place] [phone] PCP - General 08/03/23
== END 2024-08-01 14:33 | disposition home or self-care (01) ==
LOC: HO.HSMS 13:22
PROVIDERS: PCP Internal Medicine; Visit Provider Nurse Practitioner Family
DX: I69.391 Dysphagia following cerebral infarction (principal); G47.33 Obstructive sleep apnea (adult) (pediatric); Z96.82 Presence of neurostimulator; I65.02 Occlusion and stenosis of left vertebral artery; G40.A09 Absence epileptic syndrome, not intractable, without status epilepticus; R41.3 Other amnesia; G62.9 Polyneuropathy, unspecified
CPT/HCPCS: 99214

== ENCOUNTER → 2024-08-01 13:21 | Outpatient (BNVA) | payer OTHER, SELFPAY | PROVIDERS: PCP Internal Medicine; Visit Provider Nurse Practitioner Family | DX: I69.391 Dysphagia following cerebral infarction (principal); I65.02 Occlusion and stenosis of left vertebral artery; G47.33 Obstructive sleep apnea (adult) (pediatric); G40.A09 Absence epileptic syndrome, not intractable, without status epilepticus; R41.3 Other amnesia; G62.9 Polyneuropathy, unspecified; Z96.82 Presence of neurostimulator | CPT/HCPCS: 99212 ==

== ENCOUNTER 2024-12-11 08:28 | Outpatient (AMB) | payer OTHER, SELFPAY ==
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
[2024-12-11 08:30] VITALS: BP 140/84; PULSE 92; O2SAT 96; BMI 29.8
--- OUTSIDE RECORDS SUMMARY | 2024-12-11 08:50 | XMS_ITS | Clinical Summary ---
Author Organization [address] [facility] Address [address] [place] [address] Phone Care Team Providers Care Engineering Project Manager Name Role Phone PatitoSee mejia Primary Care Provider [phone] Allergies No known active allergies Medications amLODIPine [...] 12 lead Acute CVA (cerebrovascular a ccident) ([facility] V24, [facility] V28) 05/10/2024 Overview (05/13/2024): - Patient presented with severe vertigo symptoms with nausea and vomiting in May 2023 to [facility]-this was thought to have been a possible TIA -He then presented in late March 2024 with symptoms of slurred speech, dysphagia-MRI during this visit showed 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 - Continue current regimen of high-dose statin, aspirin, Plavix, and blood pressure management. Primary hypertension 05/10/2024 Assessment & Plan (05/13/2024 5:05 PM EST): Well-controlled today. Continue current medication regimen of amlodipine, lisinopril, and hydrochlorothiazide. Medical History Medical History Date Comments Hyperlipidemia Paresthesia Dysphagia EDIN (obstructive sleep apnea) Seizure disorder ([facility] V24, [facility] V28) Family History Medical History Relation Name [...] Due Date Last Done Comments Diabetes: Annual Foot Exam 1976 Diabetes: Annual Retina Eye Exam 1976 DTaP,Tdap,and Td Vaccines (1 - Tdap) 1985 Hepatitis B Vaccines (1 of 3 - 19+ 3-dose series) 1985 Pneumococcal Vaccine: 50+ Years (1 of 2 - PCV) 1985 Zoster Vaccines (1 of 2) 2016 Cholesterol Screening (Lipid Panel) 03/20/2022 Colorectal Cancer Screening: Colonoscopy 03/20/2022 HIV Screening 03/20/2022 Hepatitis C Screening 03/20/2022 Social Influencers of Health Screening 03/20/2022 COVID-19 Vaccine (3 2023-2 5 season) 2023 08/30/2020, 08/10/2020 Depression Screening 04/17/2024 Diabetes: Annual Urine Albumin-Creatinine Ratio (uACR) 04/26/2024 Influenza Vaccine (#1) 2024 Diabetes: Blood Sugar Contro l Test (HGBA1C) 06/04/2025 12/02/2024, 09/10/2024 Diabetes: Annual GFR (Glomerular Filtration Rate) 12/02/2025 12/02/2024, 09/10/2024 Hypertension/CHF/CAD Annual BMP Blood Test 12/02/2025 12/02/2024, 09/10/2024 HIB Vaccines Aged Out No longer eligi [...] Procedure Name Priority Date/Time Associated Diagnosis Comments HEMOGLOBIN A1C Routine 12/02/2024 12:34 PM EDT DM (diabetes mellitus) ([facility]/HCC V24, [facility] V28) HTN (hypertension) CVA (cerebral vascular accident) ([facility]/HCC V24, [facility] V28) BASIC METABOLIC PANEL Routine 12/02/2024 12:34 PM EDT DM (diabetes mellitus) (CMS/HCC V24, CMS/HCC V28) HTN (hypertension) CVA (cerebral vascular accident) (CMS/HCC V24, [facility] V28) HEMOGLOBIN A1C Routine 09/10/2024 11:32 AM EDT DM (diabetes mellitus) ([facility] V24, [facility] V28) HTN (hypertension) BASIC METABOLIC PANEL Routine 09/10/2024 11:32 AM EDT DM (diabetes mellitus) ([facility] V24, [facility] V28) HTN (hypertension) from Last 3 Months Results * (ABNORMAL) Hemoglobin A1c (12/02/2024 12:34 PM EDT) Only the most recent of2 resultswithin the time period is included. Hemoglobin A1C 7.8(H) <6.5 % LAB CHEMISTRY METHOD 12/02/2024 8:23 PM EDT [facility] Mean Bld Glu Estim. 177 mg/dL LAB CHEMISTRY METHOD 12/02/2024 8:23 PM EDT [facility] Blood Venous blood specimen / Unknown Venipuncture / Unknown 12/02/2024 12:34 PM EDT 12/02/2024 12:34 PM EDT Bryan Cueva LAB BLOOD ORDERABLES Final Resul t [facility] [address] [place] [address], * (ABNORMAL) Basic metabolic panel (12/02/2024 12:34 PM EDT) Only the most recent of2 resultswithin the time period is included. Sodium 135 133 - 145 mmol/L LAB CHEMISTRY METHOD 12/02/2024 5:08 PM EDT [facility] Potassium 4.1 3.5 - 5.5 mmol/L LAB CHEMISTRY METHOD 12/02/2024 5:08 PM EDT [facility] Chloride 103 96 - 110 mmol/L LAB CHEMISTRY METHOD 12/02/2024 5:08 PM EDT [facility] CO2 26 21 - 32 mmol/L LAB CHEMISTRY METHOD 12/02/2024 5:08 PM T [facility] Anion Gap 6 3 - 11 LAB CHEMISTRY METHOD 12/02/2024 5:08 PM [facility] Glucose 182(H) 70 - 100 mg/dL LAB CHEMISTRY METHOD 12/02/2024 5:08 PM [facility] BUN 12 5 - 25 mg/dL LAB CHEMISTRY METHOD 12/02/2024 5:08 PM T [facility] Creatinine 0.94 0.70 - 1.30 mg/dL LAB CHEMISTRY METHOD 12/02/2024 5:08 PM [facility] eGFR 94 >=60 mL/min/1. 73m2 LAB CHEMISTRY METHOD 12/02/2024 5:08 PM [facility] Comment:Calculation based on the Chronic Kidney Disease Epidemiology Collaboration (CKD-EPI) equation refit without adjustment for race. BUN/Creatinine Ratio 12.8 LAB CHEMISTRY METHOD 12/02/2024 5:08 PM [facility] Calcium 9.6 8.5 - 10.5 mg/dL LAB CHEMISTRY METHOD 12/02/2024 5:08 PM [facility] Blood Venous blood specimen / Unknown Venipuncture / Unknown 12/02/2024 12:34 PM EDT 12/02/2024 12:34 PM EDT us Bryan Cueva LAB BLOOD ORDERABLES Final Resul t [facility] [address] [place] [address], from Last 3 Months Insurance [facility] Care Teams Engineering Project Manager Relationship Specialty Start Date End Date See Chino DO [address] [place] [phone] PCP - General 08/03/23
== END 2024-12-11 09:30 | disposition home or self-care (01) ==
LOC: HO.HSMS 08:29
PROVIDERS: PCP Internal Medicine; Visit Provider Nurse Practitioner Family
DX: I69.391 Dysphagia following cerebral infarction (principal); Z96.82 Presence of neurostimulator; I65.02 Occlusion and stenosis of left vertebral artery; G40.A09 Absence epileptic syndrome, not intractable, without status epilepticus; G47.33 Obstructive sleep apnea (adult) (pediatric); R41.3 Other amnesia; G62.9 Polyneuropathy, unspecified; B36.9 Superficial mycosis, unspecified
CPT/HCPCS: 99214

== ENCOUNTER → 2024-12-11 08:28 | Outpatient (BNVA) | payer OTHER, SELFPAY | PROVIDERS: PCP Internal Medicine; Visit Provider Nurse Practitioner Family | DX: G40.A09 Absence epileptic syndrome, not intractable, without status epilepticus (principal); I69.391 Dysphagia following cerebral infarction; R13.12 Dysphagia, oropharyngeal phase; I65.02 Occlusion and stenosis of left vertebral artery; G47.33 Obstructive sleep apnea (adult) (pediatric); R41.3 Other amnesia; G62.9 Polyneuropathy, unspecified; B36.9 Superficial mycosis, unspecified; Z96.82 Presence of neurostimulator | CPT/HCPCS: 99212 ==

== ENCOUNTER 2025-01-15 10:40 | Outpatient (AMB) | payer OTHER, SELFPAY ==
--- NOTE | 2025-01-15 10:41 | A.OFFVIS_ITS ---
Vital Signs 01/15/25 10:44 Height 5 ft 8 in Weight 196 lb 3.382 oz BMI 29.8 BP 186/109 H Blood Pressure Location Lt brachial Position Sitting Pulse 100 Intake Visit Reasons: Dysphagia following cerebral infarction Intake Note: Darrion presents in the office as a new patient for dysphagia for cerebral infarction. CC: States he has been fine up until recently with acid reflux. States he is having issues where the INSPIRE Tube site is and it seems to be pulling. States that he can get soft food and some liquids down but still has some issues. INSPIRE he wants out and states he has not needed it in months. 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 Patient reports that he has been noticing slightly purulent discharge and pain around the G-tube site for few months. He has not been able to rotate this. He has been flushing medications without any difficulty. He is not reliant on nutritional intake on this G-tube, as he is taking soft foods and liquids through mouth. Has been keeping up caloric intake, in fact has gained 20 lb s raghav he started eating by mouth. Speech therapy note from July reviewed, which recommend strict NPO due to kacey aspiration. In addition, he also had a modified barium swallow done in [facility] that shows cricopharyngeal bar. [facility] Medical History (Updated 01/15/25 @ 11:42 by Nohelia Murguia MD) Stroke Surgical History (Updated 01/15/25 @ 10:44 by KARMEN Song) Hx of colonoscopy History of esophagogastroduodenoscopy (EGD) Family History Father Diabetes Dementia Mother Diabetes Stroke Son Autism Social History Household Members: Family Alcohol intake: never Patient Tobacco Use Status: Never used Tobacco Review of Systems Const All systems reviewed & are unremarkable except as noted in HPI and below Physical Exam Exam Exam: Middle aged gent mild dysphasia L ptosis abd soft, nontender, G tube with bumper right over skin and unable to rotate Vital Signs: Last Vital Signs Pulse 100 01/15/25 10:44 BP 186/109 H 01/15/25 10:44 BMI result Body Mass Index 29.8 Assessment & Plan Assessment & Plan (1) Dysphagia S/P CVA (cerebrovascular accident): Code(s): I69.391 - Dysphagia following cerebral infarction Category: Medical (2) Presence of externally removable percutaneous endoscopic gastrostomy (PEG) tube: Code(s): Z93.1 - Gastrostomy status Category: Medical (3) Gastrostomy tube dysfunction: Code(s): K94.23 - Gastrostomy malfunction Category: Medical (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 The G-tube should be removed or replaced. Patient is interested in complete removal. States has only been taking crushed medications through this G-tube, and can easily mixed those crushed medication in applesauce and take them. Reviewed the recommendation of strict NPO from speech therapist from July, patient states that he has been slowly increasing his oral intake and takes liquids and soft solids without any coughing or difficulty. Plan: -will review swallow reassessment with speech therapist -Ct abd for eval of G tube -based on above will book for egd for removal/replacement of g tube -will also attempt dilation at that time for cricopharyngeal bar -patient is aware to hold Plavix for 5 days prior to procedure Follow up after egd Orders: Orders CT abdomen w IV con Today K94.23 - Gastrostomy malfunction Coding Level of Care Code New Pt Level 4 (98494) Complex EM visit Add On G2211 Diagnoses Dysphagia S/P CVA (cerebrovascular accident) I69.391 Presence of externally removable percutaneous endoscopic gastrostomy (PEG) tube Z93.1 Gastrostomy tube dysfunction K94.23 Cricopharyngeal bar K22.4
[2025-01-15 10:44] VITALS: BP 186/109; PULSE 100; BMI 29.8
--- OUTSIDE RECORDS SUMMARY | 2025-01-15 12:15 | XMS_ITS | Clinical Summary ---
Author Organization 200 [facility] Address [address] [place] [address] Phone Care Team Providers Care Manager Agriculture Name Role Phone PatitoSee mejia Primary Care Provider [phone] Allergies No known active allergies Medications amLODIPine [...] 12 lead Acute CVA (cerebrovascular a ccident) ([facility] V24, [facility] V28) 05/10/2024 Overview (05/13/2024): - Patient presented with severe vertigo symptoms with nausea and vomiting in May 2023 to [facility]-this was thought to have been a possible TIA -He then presented in late March 2024 with symptoms of slurred speech, dysphagia-MRI during this visit showed 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 without mass effect or hemorrhage Assessment & Plan (05/13/2024 5:05 PM EST): - Communicate with neurologist ERNIE Dorsey at [facility] to discuss the likelihood of an [...] Dysphagia EDIN (obstructive sleep apnea) Seizure disorder ([facility] V24, [facility] V28) Family History Medical History Relation Name [...] Health Maintenance Due Date Last Done Comments Colorectal Cancer Screening: Colonoscopy 1966 Diabetes: Annual Foot Exam 1976 Diabetes: Annual Retina Eye Exam 1976 DTaP,Tdap,and Td Vaccines (1 - Tdap) 1985 Hepatitis B Vaccines (1 of 3 - 19+ 3-dose series) 1985 Pneumococcal Vaccine: 50+ Years (1 of 2 - PCV) 1985 Zoster Vaccines (1 of 2) 2016 Cholesterol Screening (Lipid Panel) 03/20/2022 HIV Screening 03/20/2022 Hepatitis C Screening 03/20/2022 Social Influencers of Health Screening 03/20/2022 Depression Screening 04/17/2024 Diabetes: Annual Urine Albumin-Creatinine Ratio (uACR) 04/26/2024 COVID-19 Vaccine (3 - 2024-2 6 season) 2024 08/30/2020, 08/10/2020 Influenza Vaccine (#1) 2024 Diabetes: Blood Sugar Contro l Test (HGBA1C) 06/04/2025 12/02/2024, 09/10/2024 Diabetes: Annual GFR (Glomerular Filtration Rate) 12/02/2025 12/02/2024, 09/10/2024 Hypertension/CHF/CAD Annual BMP Blood Test 12/02/2025 12/02/2024, 09/10/2024 RSV Immunization Adult Patients (1 - 1-dose 75+ series) 2041 HIB Vaccines Aged Out No longer eligi [...] 12/02/2024 12:34 PM EDT DM (diabetes mellitus) ([facility] V24, [facility] V28) HTN (hypertension) CVA (cerebral vascular accident) ([facility] V24, [facility] V28) BASIC METABOLIC PANEL Routine 12/02/2024 12:34 PM EDT DM (diabetes mellitus) ([facility] V24, [facility] V28) HTN (hypertension) CVA (cerebral vascular accident) ([facility] V24, [facility] V28) from Last 3 Months Results * (ABNORMAL) Hemoglobin A1c (12/02/2024 12:34 PM EDT) Pathologist [facility] Hemoglobin A1C 7.8(H) <6.5 % LAB CHEMISTRY [...] t [facility] [address] [place] [address], * (ABNORMAL) Basic metabolic panel (12/02/2024 12:34 PM EDT) [facility] Sodium 135 133 - 145 mmol/L LAB CHEMISTRY METHOD 12/02/2024 5:08 PM [facility] Potassium 4.1 3.5 - 5.5 mmol/L LAB CHEMISTRY METHOD 12/02/2024 5:08 PM [facility] Chloride 103 96 - 110 mmol/L LAB CHEMISTRY METHOD 12/02/2024 5:08 PM [facility] CO2 26 21 - 32 mmol/L LAB CHEMISTRY METHOD 12/02/2024 5:08 PM [facility] Anion Gap 6 3 - 11 LAB CHEMISTRY METHOD 12/02/2024 5:08 PM [facility] Glucose 182(H) 70 - 100 mg/dL LAB CHEMISTRY METHOD 12/02/2024 5:08 PM [facility] BUN 12 5 - 25 mg/dL LAB CHEMISTRY METHOD 12/02/2024 5:08 PM EDT [facility] Creatinine 0.94 0.70 - 1.30 mg/dL LAB CHEMISTRY METHOD 12/02/2024 5:08 PM EDT [facility] eGFR 94 >=60 mL/min/1. 73m2 LAB CHEMISTRY METHOD 12/02/2024 5:08 PM EDT [facility] Comment:Calculation based on the Chronic Kidney Disease Epidemiology Collaboration (CKD-EPI) equation refit without adjustment for race. BUN/Creatinine Ratio 12.8 LAB CHEMISTRY METHOD 12/02/2024 5:08 PM EDT [facility] Calcium 9.6 8.5 - 10.5 mg/dL LAB CHEMISTRY METHOD 12/02/2024 5:08 PM EDT [facility] Blood Venous blood specimen / Unknown Venipuncture / Unknown 12/02/2024 12:34 PM EDT 12/02/2024 12:34 PM EDT us Bryan Cueva LAB BLOOD ORDERABLES Final Resul t [facility] [address] [place] [address], from Last 3 Months Insurance [facility] Care Teams Manager Agriculture Relationship Specialty Start Date End Date See Chino DO [address] [place] [phone] PCP - General 08/03/23
== END 2025-01-15 11:11 | disposition home or self-care (01) ==
LOC: HO.HGI 10:41
PROVIDERS: PCP Internal Medicine; Visit Provider Internal Medicine
DX: I69.391 Dysphagia following cerebral infarction (principal); Z93.1 Gastrostomy status; K94.23 Gastrostomy malfunction; K22.4 Dyskinesia of esophagus
CPT/HCPCS: 99204

== ENCOUNTER → 2025-01-15 10:40 | Outpatient (BNVA) | payer OTHER, SELFPAY | PROVIDERS: PCP Internal Medicine; Visit Provider Internal Medicine | DX: K94.23 Gastrostomy malfunction (principal); I69.391 Dysphagia following cerebral infarction; K22.4 Dyskinesia of esophagus | CPT/HCPCS: 99202 ==

== ENCOUNTER 2025-01-23 09:56 | Outpatient (REF) | payer OTHER, SELFPAY ==
--- NOTE | ~2025-01-23 | FL_ITS ---
EXAMINATION: XR BARIUM SWALLOW CLINICAL INFORMATION: Dysphagia COMPARISON: Previous exam June 2024 TECHNIQUE: Fluoroscopy guidance provided for modified barium swallow performed by the speech pathology department. Patient was administered liquid barium of varying thicknesses and food mixed with barium. FINDINGS: There is a prominent cricopharyngeus muscle. There is trace penetration with thin liquid area and barium mixed with applesauce. This is not seen with thickened liquid or other solid media mixed with barium. There is mild retention in the valleculae. There is degenerative spondylosis of the cervical spine. There is a lead seen projecting over the soft tissues of the anterior neck. FLUOROSCOPY TIME: 2 minutes 36 seconds DOSE AREA PRODUCT: 1772 uGy-m2 (microgray-meter squared) FL/FL Modified Barium Swallow IMPRESSION: Penetration with thin liquid barium and barium mixed with applesauce. Mild retention in the vallecula. Prominent cricopharyngeus muscle. Electronically signed by: Verónica Cummings MD 01/23/2025 11:13 AM EDT
--- NOTE | 2025-01-23 16:00 | MHC.SL.IMP ---
Date of Plan of Treatment: 01/23/25 Onset of Symptoms/Illness: 03/28/24 Date Treatment Started: 06/24/24 Admitting Diagnosis: Hx stroke Primary Speech & Language Diagnosis: R13.13 Pharyngeal Phase Dysphagia Reason for Today's Visit: 11026 Modified Barium Swallow Study Pre-evaluation Dietary Consistencies: NPO Pre-evaluation Liquid Consistency: NPO Pre-evaluation Medication Administration: NPO Medical History: Modified Barium Swallow Study Fluoroscopic Evaluation of Swallowing Function CPT Code 54059 Evaluation Year: 2024 Reason for Study: Repeat swallow study Referring Physician: Sophy KLEIN Evaluating Clinician: Alissa Mario MA, [facility] Study Number: 1 Patient Name: Darrion Milian Status: Outpatient Age: 59 Sex: Male Medical History Medical History (Updated 01/15/25 @ 11:42 by Nohelia Murguia MD) Stroke Surgical History (Updated 01/15/25 @ 10:44 by KARMEN Song) Hx of colonoscopy History of esophagogastroduodenoscopy (EGD) Current (pre-evaluation) Intake/Diet: Route: Partial PO/Partial Alternate, gastrostomy tube Pain: None reported at time of study SUBJECTIVE: Patient is a 59 year old male referred by Sophy KLEIN for a repeat-MBSS. 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 There was kacey aspiration on thin and thickened liquid and significant cricopharyngeal bar with no passage of barium into the esophagus. Patient was subsequently recommended strict NPO with continuation of tube feeding through his PEG tube. He was also recommended GI consult for prominent cricopharyngeal bar obstructing bolus flow. Patient was referred to GI specialist for PEG tube dysfunction, as patient was recently reporting discharge and pain around the G-tube site. Per Dr. Murguia, patient is now getting nutrition through oral intake and only uses the G-tube for medications. Dr. Murguia requested that patient?s second assessment be booked urgently to determine if patient?s G-tube needs to be replaced or if it could be removed, as it appeared patient had a buried bumper with associated risks of infection and perforation. Additionally, patient expressed he wanted his G-tube out, as he was no longer using it, other than to take his medications. Patient reports his swallow and dysarthria have improved, and that he has gained approximately 20lbs after introducing oral intake. Today patient again endorses that his swallow has improved, though he is still not able to eat harder solids. Patient reports that he tried [place] food recently, but had to chew it very finely. He reports that it feels like food goes down and then comes back up. He needs to swallow multiple times to get it down. He says he is managing his secretions well and no longer has to spit out his saliva. He reports he is able to drink liquids and shakes, and can eat foods like applesauce without any significant difficulty. He does report sometimes coughing with oral intake and feeling like food is coming out of his nose. Oral Motor Exam Facial Symmetry: Symmetrical Mouth Occlusion: Normal Oral-Facial Teeth Characteristics: Partially Missing Oral-Facial Lip Pucker Description: Normal Oral-Facial Smile (Lips) Description: Normal Oral-Facial Puff Cheeks Description: Normal Tongue Size: Normal Tongue Excursion Description: Normal Tongue Range of Movement Description: Normal Tongue Speed of Movement Description: Normal Tongue Strength of Movement (against opposing pressure): Normal Tongue Movement Characteristics: Normal/Absent Is patient able to manage secretions?: Yes Food and Liquid Trials: Oral Impairment: Lip Closure: Did not test Oral Impairment: Tongue Control During Bolus Hold: 0=Cohesive bolus between tongue to palatal seal Oral Impairment: Bolus Preparation/Mastication: 0=Timely and efficient chewing and mashing Oral Impairment: Bolus Transport/Lingual Motion: 1= Delayed initiation of tongue motion Oral Impairment: Oral Residue: 1=Trace residue lining oral structures Oral Impairment:Initiation of Pharyngeal Swallow: 1=Bolus head in valleculae Pharyngeal Impairment: Soft Palate Elevation: 0=No bolus between soft palate (SP)/pharyngeal wall (PW) Pharyngeal Impairment: Laryngeal Elevation: 0=Complete superior movement of thyroid cartilage (see description) Pharyngeal Impairment: Anterior Hyoid Excursion: 1=Partial anterior movement Pharyngeal Impairment: Epiglottic Movement: 1=Partial inversion Pharyngeal Impairment: Laryngeal Vestibular Closure:: 1=Incomplete: narrow column air/contrast in laryngeal vestibule Pharyngeal Impairment: Pharyngeal Stripping Wave: 1=Present: diminished Pharyngeal Impairment: Pharyngeal Contraction: Did not test Pharyngeal Impairment: Pharyngoesophageal Segment Openin=Minimal distension/minimal duration: marked obstruction of flow Pharyngeal Impairment: Tongue Base (TB) Retraction: 1=Trace column of contrast/air between TB and posterior PW Pharyngeal Impairment: Pharyngeal Residue: 3=Majority of contrast within or on pharyngeal structures Pharyngeal Impairment: Esophageal Clearance Upright Position: Did not test Impressions and Recommendations OBJECTIVE: Time-out: performed at 10:50 Evaluation Start: 10:30; Stop: 10:35 Patient Positioning: Standing Viewing Planes: LATERAL ONLY Contrast: MBSImP? Standardized Protocol using commercially prepared, standardized Barium viscosities, including: Varibar? THIN LIQUID (40% w/v, <15 cps) , Varibar? NECTAR (40% w/v, <150-450 cps) , Varibar? PUDDING (40% w/v, <8332-2336 cps) , 1/2 Shortbread Cookie (1 x1 x.25 ) MBSImP ID: [id number] MBSImP Results: Lip closure for intraoral bolus containment could not be assessed due to logistical reasons not related to physiologic impairment. Tongue control during bolus hold maintained a cohesive bolus held between tongue to palate seal. Bolus preparation and mastication resulted in timely and efficient chewing and mashing. Bolus transport/lingual motion demonstrated delayed initiation of tongue motion. Oral residue was a trace, lining oral structures. Initiation of the pharyngeal swallow occurred when the bolus head was in the valleculae. Soft palate elevation resulted in no bolus between the soft palate and the pharyngeal wall. Laryngeal elevation demonstrated complete superior movement of the thyroid cartilage with complete approximation of the arytenoids to the epiglottic petiole. Anterior hyoid excursion demonstrated partial anterior movement. Epiglottic movement resulted in partial inversion. Laryngeal vestibular closure was incomplete, with a narrow column of air/contrast noted within the laryngeal vestibule at the height of the swallow. Pharyngeal stripping wave was present, but diminished. Pharyngeal contraction could not be determined due to logistical reasons not related to physiologic impairment. Pharyngoesophageal segment opening demonstrated minimal distension/minimal duration, with marked obstruction of bolus flow. Tongue base retraction allowed a trace column of contrast or air between the retracted tongue base and the posterior pharyngeal wall. Pharyngeal residue was the majority of contrast within or on pharyngeal structures. Esophageal clearance in the upright position could not be assessed due to logistical reasons not related to physiologic impairment. Oral Impairment Score: 2 (absence of score, component 1) Pharyngeal Impairment Score: 9 (absence of score, component 13) Esophageal Impairment Score: --- (absence of score, component 17) Laryngeal Penetration and Aspiration: Neither penetration nor aspiration was observed in today's study with Soft Solid, [place]-thick. Penetration was observed in today's study. Thin Contrast, Puree entered the airway, remained above the vocal folds, and was ejected from the airway. ASSESSMENT: This exam was performed by the radiologist and the speech pathologist. Patient was standing for lateral view only and fed himself independently. He trialed the following consistencies: -Thin liquid (via individual cup sips) -[place] thick liquid (via individual cup sips) -Puree (mixture applesauce with barium pudding) -Ground/soft solid (chicken salad mixed with barium pudding) Patient demonstrated good tongue control with no anterior loss of bolus and no premature posterior escape from the oral cavity. Mastication was timely and efficient. Posterior lingual motion for bolus transport was mildly delayed in initiation, but with brisk tongue movement. Pharyngeal swallow trigger initiated as the bolus head reached the valleculae. Post-swallow, there was trace residue lining the tongue and floor of mouth. No evidence of nasopharyngeal reflux. Complete laryngeal elevation, with partial anterior hyoid excursion, partial epiglottic inversion, and incomplete laryngeal vestibular closure. -Thin liquid: Flash penetration seen intermittently. A trace amount of contrast entered the airway above the vocal folds and spontaneously cleared, with no subsequent aspiration. There was trace residue in the valleculae and on the tongue base, with mild to moderate collection in the pyriforms after the initial swallow. Patient was able to reduce pharyngeal retention with dry swallows. -[place] thick liquid: No evidence of aspiration or penetration. Mild residual in the valleculae and pyriforms mostly cleared with dry swallows. -Puree: Flash penetration above the vocal folds which spontaneously cleared. No evidence of aspiration. Trace residue on the tongue base and posterior pharyngeal wall, and in the valleculae. Moderate collection in the pyriforms. Pharyngeal residue was reduced with dry swallows/ effortful swallowing. -Ground: No evidence of aspiration or penetration. Significant residue on the posterior pharyngeal wall and in the pyriforms after the initial swallow. Patient was able to clear most residue, however this was more effortful on this consistency, requiring persistent dry swallowing and liquid wash. The following compensatory strategies have not been used until today's study, but when employed, improved swallowing function: [place]-thick Liquid eliminated Penetration Bolus Volume Change decreased Oral Residue, Pharyngeal Residue Rate of Ingestion Change decreased Oral Residue, Pharyngeal Residue Liquid Wash decreased Oral Residue, Pharyngeal Residue Additional Swallow(s) per Bolus decreased Oral Residue, Pharyngeal Residue Effortful Swallow (used during PO intake) eliminated Pharyngeal Residue Liquid Intake Recommendation: Thin Liquid Intake Strategies: Small Sips, No Straws, Double Swallow Dietary Recommendations: Pureed (NDD1) Medication Administration: Crushed with Puree Please contact the pharmacy regarding appropriate crushable or liquid drug formulations that are available whenever modified delivery is recommended. Compensatory Strategies Recommended: Sitting Upright (90 deg), Double Swallow, No Straw, Small Bites and Sips, Alternate Liquids/Solids, Rate of Ingestion Change Recommended Treatments: Pharyngeal Resistive Exer, Compens. Strategy Educat. Recommendation for Speech Therapy: Outpatient Speech Therapy Text Comment: Intake Recommendations: Route: PO Diet Grade: Puree Liquid Consistencies: Thin Post-Study Functional Oral Intake Scale (FOIS): 5- Total oral intake of multiple consistencies requiring special preparation Notable improvement from last exam. Patient presents with moderate pharyngeal dysphagia, marked by partial epiglottic inversion, incomplete laryngeal vestibular closure, and obstruction of flow through the pharyngoesophageal segment opening (PES) due to prominent cricohparyngeus muscle. Patient is recommended a PUREED (NDD1) diet with THIN liquids to start, with pills CRUSHED in PUREE or in liquid form when possible. The following strategies are recommended to maximize safety: -effortful swallow (during PO intake) -take small, individual bites -dry swallow after each bite -alternate bites with sips of liquid -liquids by teaspoon or cup sip -avoid the use of straw -take one sip at a time -dry swallow after each sip -maintain upright 90 degree position during PO intake and for at least 30 minutes afterwards Suggested Referrals: The patient might benefit from a referral to: Gastroenterology Indication for Referral: EGD (?with balloon dilation), patient w/ prominent CP bar affecting swallow Therapy Recommendations: Recommend speech therapy for the treatment of dysphagia 1x weekly x 6 weeks, with goals targeting patient education, training of compensatory strategies, and pharyngeal strengthening exercises. Patient would benefit from repeat-MBSS after he has had an endoscopy (with balloon dilation if indicated) to re-assess for improvement. The following compensatory strategies and/or therapeutic exercises will be part of the upcoming therapy/management plan: Bolus Volume Change Rate of Ingestion Change Liquid Wash Additional Swallow(s) per Bolus Effortful Swallow (used during PO intake) Fpc Goals: ? The patient will tolerate the least restrictive diet with a safe/efficient swallow to maintain adequate nutrition and hydration. ? The patient will demonstrate improved swallowing function via repeat clinical evaluation, videoendoscopy/videofluoroscopy and/or patient self-rating scores. ? The patient and/or family will participate in further education for swallowing goals. Short Term Goals: ? Diet - The patient will tolerate a pureed diet with thin liquids without signs or symptoms of penetration/aspiration 100% of the time. - The patient will participate in therapeutic PO trials with the [facility]. ? Guidelines - The patient will comply with/recall the following guidelines/strategies 100% of the time with minimal cuing: Bolus Volume Change, Rate of Ingestion Change, Liquid Wash, Additional Swallow(s) per Bolus, Effortful Swallow (used during PO intake). ? Independent Home Exercise - The patient will perform 10 repetitions of the Effortful Swallow, Laura Maneuver, Shaker Head Lifts, Nanette Maneuver 2 times a day with 100% accuracy and no cuing as part of a home exercise program. ? Structured Therapy - The patient will demonstrate 100% accuracy and require minimal cuing in structured swallowing therapy with the [facility] using the following exercises/therapy approaches and therapy assisted devices: Effortful Swallow, Laura Maneuver, Shaker Head Lifts, Nanette Maneuver, . ? Education - The patient will verbalize/demonstrate understanding of the results of this evaluation, the above recommendations, and the swallowing guidelines. Clinician - Supplemental, Miscellaneous Communication: It is important to note MBSS objective studies are snapshots in time and Patient function might vary with factors such as time of day or concomitant medical conditions. For this reason, the final treatment plan for this patient should rest with their medical care team. Additional recommendations should be considered with the totality of the Patient in mind. Thank for the opportunity to participate in the care of this patient. If you have any questions about the content of this report, please contact the [facility] at [facility]. Education: Education regarding findings from today's study and plans for therapy were provided to Patient only through Verbal Instruction. Understanding was expressed by the Patient only. Frequency/Duration: 1x weekly x 6 weeks Date Range for Service Requested: Timeline to reassess: 3 months Rewinder Operator Clinician/Clinical Fellow: No Supervisory Statement: N/A Speech Language Pathologist: Alissa Mario M.A., CCC-[facility]
== END 2025-01-23 09:57 | disposition home or self-care (01) ==
LOC: HO.XRAY 09:56
PROVIDERS: PCP Internal Medicine; Visit Provider Internal Medicine
DX: I69.391 Dysphagia following cerebral infarction (principal)
CPT/HCPCS: 74230; 92611

== ENCOUNTER → 2025-01-23 10:30 | Outpatient (BNV) | payer OTHER, SELFPAY | PROVIDERS: PCP Internal Medicine; Visit Provider Radiology Diagnostic Radiology | DX: R13.10 Dysphagia, unspecified (principal) | CPT/HCPCS: 74230 ==

== ENCOUNTER 2025-01-31 09:01 | Outpatient (REF) | payer OTHER, SELFPAY ==
--- NOTE | ~2025-01-31 | CT_ITS ---
EXAMINATION: CT ABDOMEN WITH CONTRAST CLINICAL INFORMATION: K 94.23. Gastrostomy malfunction. COMPARISON: None available. TECHNIQUE: Contiguous axial thin section helical images of the abdomen were performed following the administration of 85 mL of Omnipaque 350 intravenous contrast without reported immediate complications. The data set was reformatted in the coronal and sagittal planes and reviewed on an independent workstation. This CT examination was performed using dose optimization techniques as appropriate, variously including the following: *Automated exposure control *Adjustment of mA and/or kV according to patient size (this includes techniques or standardized protocols for targeted exams where dose is matched to indication/reason for exam; i.e. extremities or head) *Use of iterative reconstruction technique. DLP: 281 mGy centimeter. FINDINGS: LUNG BASES: Multiple thin wall and air-filled pulmonary cysts. LIVER, GALLBLADDER, AND BILIARY TREE: Liver measures 18 cm. Decreased enhancement pattern. No focal mass. Main portal veins and hepatic veins and intrahepatic portion of the IVC are patent. No pericholecystic fluid collection or gallbladder wall thickening. Gallbladder is nondistended. No intrahepatic or extrahepatic biliary ductal dilatation.. PANCREAS: No peripancreatic fluid collections. No focal mass. No main pancreatic ductal dilatation. SPLEEN: 16 cm. No focal mass. ADRENAL GLANDS AND KIDNEYS: No nodular lesions, adrenal glands. lobulations. No gross renal mass. Normal enhancement pattern of the renal parenchyma. No hydronephrosis. No gross nephrolithiasis. BOWEL LOOPS: Percutaneously placed gastrostomy tube anchor in the lumen of the body of the stomach. No fluid collections at the gastrostomy tube tract. Abundant stool in the large intestine. No intestinal obstruction pattern. No pneumatosis intestinalis. No pneumoperitoneum, abdomen. No ascites, upper abdomen. LYMPH NODES: No lymphadenopathy, retroperitoneum. Mild prominent mesenteric lymph nodes. VASCULAR: Mixed plaques throughout the abdominal aorta at the origin of the mesenteric arteries and main renal arteries and the iliac arteries. BONES: Multilevel thoracolumbar spondylosis. No acute fracture. Grade 1 anterolisthesis L5-S1 secondary to spondylolysis pars interarticulares. CT/CT abdomen w IV con IMPRESSION: Normal position of the epigastric placed gastrostomy tube without surrounding hematoma or abscess. Hepatosplenomegaly and hepatic steatosis. Numerous, faint wall and air-filled pulmonary cysts. 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 Fleischner guidelines were followed. Electronically signed by: Alex Palma MD 01/31/2025 10:10 AM EDT
--- OUTSIDE RECORDS SUMMARY | 2025-01-31 09:44 | XMS_ITS | Clinical Summary ---
Author Organization [address] [facility] Address [address] [place] [address] Phone Care Team Providers Care Manager Baby Name Role Phone PatitoSee mejia Primary Care Provider Allergies No known active allergies Medications amLODIPine [...] 12 lead Acute CVA (cerebrovascular a ccident) ([facility] V24, [facility] V28) 05/10/2024 Overview (05/13/2024): - Patient presented with severe vertigo symptoms with nausea and vomiting in May 2023 to [facility]-this was thought to have been a possible TIA -He then presented in late March 2024 with symptoms of slurred speech, dysphagia-MRI during this visit showed 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 without mass effect or hemorrhage Assessment & Plan (05/13/2024 5:05 PM EST): - Communicate with neurologist ERNIE Dorsey at [facility] to discuss the likelihood of an [...] Dysphagia EDIN (obstructive sleep apnea) Seizure disorder ([facility] V24, [facility] V28) Family History Medical History [...] 12/02/2024 12:34 PM EDT DM (diabetes mellitus) ([facility] V24, [facility] V28) HTN (hypertension) CVA (cerebral vascular accident) ([facility] V24, [facility] V28) BASIC METABOLIC PANEL Routine 12/02/2024 12:34 PM EDT DM (diabetes mellitus) ([facility] V24, [facility] V28) HTN (hypertension) CVA (cerebral vascular accident) ([facility] V24, [facility] V28) from Last 3 Months Results * (ABNORMAL) Hemoglobin A1c (12/02/2024 12:34 PM EDT) Pathologist [facility] [place] Hemoglobin A1C 7.8(H) <6.5 % LAB CHEMISTRY METHOD 12/02/2024 8:23 PM EDT [facility] Mean Bld Glu Estim. 177 mg/dL LAB CHEMISTRY METHOD 12/02/2024 8:23 PM EDT [facility] Blood Venous blood specimen / Unknown Venipuncture / Unknown 12/02/2024 12:34 PM EDT 12/02/2024 12:34 PM EDT Bryan Cueva LAB BLOOD ORDERABLES Final Resul t [facility] [address] [place] [address], * (ABNORMAL) Basic metabolic panel (12/02/2024 12:34 PM EDT) [facility] Sodium 135 133 - 145 mmol/L LAB CHEMISTRY METHOD 12/02/2024 5:08 PM [facility] Potassium 4.1 3.5 - 5.5 mmol/L LAB CHEMISTRY METHOD 12/02/2024 5:08 PM [facility] Chloride 103 96 - 110 mmol/L LAB CHEMISTRY METHOD 12/02/2024 5:08 PM [facility] CO2 26 21 - 32 mmol/L LAB CHEMISTRY METHOD 12/02/2024 5:08 PM [facility] Anion Gap 6 3 - 11 LAB CHEMISTRY METHOD 12/02/2024 5:08 PM [facility] Glucose 182(H) 70 - 100 mg/dL LAB CHEMISTRY METHOD 12/02/2024 5:08 PM [facility] BUN 12 5 - 25 mg/dL LAB CHEMISTRY METHOD 12/02/2024 5:08 PM EDT [facility] Creatinine 0.94 0.70 - 1.30 mg/dL LAB CHEMISTRY METHOD 12/02/2024 5:08 PM EDT [facility] eGFR 94 >=60 mL/min/1. 73m2 LAB CHEMISTRY METHOD 12/02/2024 5:08 PM EDT [facility] Comment:Calculation based on the Chronic Kidney Disease Epidemiology Collaboration (CKD-EPI) equation refit without adjustment for race. BUN/Creatinine Ratio 12.8 LAB CHEMISTRY METHOD 12/02/2024 5:08 PM EDT [facility] Calcium 9.6 8.5 - 10.5 mg/dL LAB CHEMISTRY METHOD 12/02/2024 5:08 PM EDT [facility] Blood Venous blood specimen / Unknown Venipuncture / Unknown 12/02/2024 12:34 PM EDT 12/02/2024 12:34 PM EDT us Bryan Cueva LAB BLOOD ORDERABLES Final Resul t [facility] [address] [place] [address], from Last 3 Months Insurance [facility] [place] [id number] Care Teams Manager Baby Relationship Specialty Start Date End Date See Chino DO [address] [place] [id number] PCP - General 08/03/23
[2025-01-31] MEDS: iohexoL 350 MG/ML 100 ML INFUS..BTL IV (09:50)
[2025-01-31 11:45] LABS: Creatinine POC 0.8 mg/dL (0.5-1.4); GFR POC > 60
== END 2025-01-31 09:02 | disposition home or self-care (01) ==
LOC: HO.CT 09:01
PROVIDERS: PCP Internal Medicine; Visit Provider Internal Medicine
DX: K94.23 Gastrostomy malfunction (principal)
CPT/HCPCS: 74160; 82565; Q9967

== ENCOUNTER → 2025-01-31 09:02 | Outpatient (BNV) | payer OTHER, SELFPAY | PROVIDERS: PCP Internal Medicine; Visit Provider Radiology Diagnostic Radiology | DX: K76.0 Fatty (change of) liver, not elsewhere classified (principal); R16.2 Hepatomegaly with splenomegaly, not elsewhere classified; M47.817 Spondylosis without myelopathy or radiculopathy, lumbosacral region | CPT/HCPCS: 74160 ==

== ENCOUNTER 2025-02-27 09:00 | Outpatient (RCR) | payer OTHER, SELFPAY ==
--- NOTE | 2025-04-02 15:08 | MHC.SL.DTX ---
Changes made to current diet?: No Liquid Consistency and Strategies: Liquid Intake Recommendation: Thin Solid Food Consistency: Dietary Recommendations: Pureed (NDD1) Additional Modifications to Solids: Patient is recommended a PUREED (NDD1) diet with THIN liquids to start, with pills CRUSHED in PUREE or in liquid form when possible. The following strategies are recommended to maximize safety: -effortful swallow (during PO intake) -take small, individual bites -dry swallow after each bite -alternate bites with sips of liquid -liquids by teaspoon or cup sip -avoid the use of straw -take one sip at a time -dry swallow after each sip -maintain upright 90 degree position during PO intake and for at least 30 minutes afterwards Oral Medication Intake: Crushed with Puree Swallowing Recommended Treatments: Pharyngeal Resistive Exer Compens. Strategy Educat. Additional Comments: Repeat MBSS on 01/23/25 showed flash penetration with thin and puree consistencies, with no subsequent aspiration. Significant pharyngeal retention with harder consistencies, with partial obstruction of flow through the PES d/t prominent cricopharyngeus muscle. D/C note 04/02: Patient requested to cancel his last three appointments on 03/20, 03/27, and 04/03. VISUAL MERCHANDISING DIRECTOR called on 04/02 to check in with patient and to confirm a therapy schedule. Patient reports that his swallow has significantly improved after his upper endoscopy and that he has been eating and drinking without difficulty. EGD findings from 03/05 include: Larynx:normal Esophagus: GE junction at 40 cm, diaphragm hiatus at 40 cm, mild esophagitis noted with schatzki ring, balloon dilation done to 20 mm at LES and UES, no tears seen - LES was lax. Stomach: patchy erythema . Biopsies were obtained. Grade 2 flap valve on retroflexed examination of the cardia. G tube internal bumper was noted. I could not pull this out. The tube was cut and the bumper was removed using a snare. Duodenum: Normal bulb and descending duodenum Patient stated, I don't need this therapy anymore and requested to cancel all speech therapy visits. VISUAL MERCHANDISING DIRECTOR does recommend repeat-MBSS to assess for any changes/improvement to patient's swallow function s/p EGD with balloon dilation and completion of 4/6 speech therapy visits, which may be referenced in case his symptoms were to return in the future. Patient stated he was agreeable to having an MBSS, but requested it be booked after the holidays. Plan for instrumental exam once a physician's order is received by the Speech and Hearing department. Patient is discharged from outpatient speech therapy at this time, per patient's request. Patient is encouraged to monitor his dysphagia. If he experiences any changes or worsening of symptoms, he is advised to consult with his primary care provider or referring GI specialist, at which point a repeat-assessment may be warranted. Securities Vault Supervisor Clinican/Clinical Fellow: No Supervisory Statement: I have reviewed and agree with the student/clinical fellow's documentation: N/A Speech Language Pathologist: Alissa Mario M.A., CCC-VISUAL MERCHANDISING DIRECTOR
== END 2025-04-02 16:20 | disposition home or self-care (01) ==
LOC: HO.SH 09:00
PROVIDERS: PCP Internal Medicine; Visit Provider Nurse Practitioner Family
DX: I69.391 Dysphagia following cerebral infarction (principal); Z93.1 Gastrostomy status; Z96.82 Presence of neurostimulator
CPT/HCPCS: 92526

== ENCOUNTER 2025-03-05 11:16 | Day surgery (SDC) | payer OTHER, SELFPAY ==
--- OUTSIDE RECORDS SUMMARY | 2025-01-30 08:29 | XMS_ITS | Clinical Summary ---
Author Organization [address] [facility] Address [address] [place] [address] Phone Care Team Providers Care Hoist Mechanic Name Role Phone PatitoSee mejia Primary Care Provider [phone] Allergies No known active allergies Medications amLODIPine [...] 12 lead Acute CVA (cerebrovascular a ccident) ([facility] V24, [facility] V28) 05/10/2024 Overview (05/13/2024): - Patient presented with severe vertigo symptoms with nausea and vomiting in May 2023 to [facility]-this was thought to have been a possible TIA -He then presented in late March 2024 with symptoms of slurred speech, dysphagia-MRI during this visit showed 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 without mass effect or hemorrhage Assessment & Plan (05/13/2024 5:05 PM EST): - Communicate with neurologist ERNIE Dorsey at [facility] to discuss the likelihood of an [...] Dysphagia EDIN (obstructive sleep apnea) Seizure disorder ([facility] V24, [facility] V28) Family History Medical History [...] 12/02/2024 12:34 PM EDT DM (diabetes mellitus) ([facility] V24, [facility] V28) HTN (hypertension) CVA (cerebral vascular accident) ([facility] V24, [facility] V28) BASIC METABOLIC PANEL Routine 12/02/2024 12:34 PM EDT DM (diabetes mellitus) ([facility] V24, [facility] V28) HTN (hypertension) CVA (cerebral vascular accident) ([facility] V24, [facility] V28) from Last 3 Months Results * (ABNORMAL) Hemoglobin A1c (12/02/2024 12:34 PM EDT) Pathologist [facility] [place] Hemoglobin A1C 7.8(H) <6.5 % LAB CHEMISTRY METHOD 12/02/2024 8:23 PM EDT [facility] Mean Bld Glu Estim. 177 mg/dL LAB CHEMISTRY METHOD 12/02/2024 8:23 PM EDT [facility] Blood Venous blood specimen / Unknown Venipuncture / Unknown 12/02/2024 12:34 PM EDT 12/02/2024 12:34 PM EDT Bryan Cueva LAB BLOOD ORDERABLES Final Resul t [facility] [address] [place] [address], * (ABNORMAL) Basic metabolic panel (12/02/2024 12:34 PM EDT) [facility] Sodium 135 133 - 145 mmol/L LAB CHEMISTRY METHOD 12/02/2024 5:08 PM [facility] Potassium 4.1 3.5 - 5.5 mmol/L LAB CHEMISTRY METHOD 12/02/2024 5:08 PM [facility] Chloride 103 96 - 110 mmol/L LAB CHEMISTRY METHOD 12/02/2024 5:08 PM [facility] CO2 26 21 - 32 mmol/L LAB CHEMISTRY METHOD 12/02/2024 5:08 PM [facility] Anion Gap 6 3 - 11 LAB CHEMISTRY METHOD 12/02/2024 5:08 PM [facility] Glucose 182(H) 70 - 100 mg/dL LAB CHEMISTRY METHOD 12/02/2024 5:08 PM [facility] BUN 12 5 - 25 mg/dL LAB CHEMISTRY METHOD 12/02/2024 5:08 PM EDT [facility] Creatinine 0.94 0.70 - 1.30 mg/dL LAB CHEMISTRY METHOD 12/02/2024 5:08 PM EDT [facility] eGFR 94 >=60 mL/min/1. 73m2 LAB CHEMISTRY METHOD 12/02/2024 5:08 PM EDT [facility] Comment:Calculation based on the Chronic Kidney Disease Epidemiology Collaboration (CKD-EPI) equation refit without adjustment for race. BUN/Creatinine Ratio 12.8 LAB CHEMISTRY METHOD 12/02/2024 5:08 PM EDT [facility] Calcium 9.6 8.5 - 10.5 mg/dL LAB CHEMISTRY METHOD 12/02/2024 5:08 PM EDT [facility] Blood Venous blood specimen / Unknown Venipuncture / Unknown 12/02/2024 12:34 PM EDT 12/02/2024 12:34 PM EDT us Bryan Cueva LAB BLOOD ORDERABLES Final Resul t [facility] [address] [place] [address], from Last 3 Months Insurance [facility] [employer] Care Teams Hoist Mechanic Relationship Specialty Start Date End Date See Chino DO [address] [place] [phone] PCP - General 08/03/23
[2025-03-05] VITALS (7 sets, daily range): BP systolic 111–167; BP diastolic 52–94; PULSE 71–82; RESP 12–16; TEMP 36.3–37.1; O2SAT 91–96; BMI 29.8
--- NOTE | 2025-03-05 11:25 | MHC.SHP ---
Pre-Procedural Eval Section A - 24 Hr Update-Section A only Date of Service: 03/05/25 Section B - Complete if H&P > 30 days Chief Complaint: Gastrostomy malfunction,Dyskinesia of esophagus Relevant Family History (Specify if Yes): No Relevant Social History: None Present Medications: see Short Stay Collaborative assessment Medical History: Significant History (cva, HLP, HTN, seizures ) History of Previous Operations: Relevant previous surgery/procedure and date(s) (g tube ) Allergies: Allergies Allergy/AdvReac Type Severity Reaction Status Date / Time No Known Allergies Allergy Verified 01/15/25 10:45 Review of Systems Sugical H&P ROS: Negative: Constitution, Cardiovascular, Respiratory, Neurological, Psychiatric, Hem-Onc, Allergic/Immunologic, Gastrointestinal, Genitourinary, Musculoskeletal, Integumentary, Endocrine and Eyes/Ears/Nose/Throat Exam Surgical H&P Exam: Normal: HEENT, Normal: Heart, Normal: Lungs, Normal: Extremities, Normal: Abdomen, Normal: Skin and Normal: Neurological Plan Diagnosis/Plan: Unchanged I have reviewed the history and physical and performed a pertinent physical examination on my patient. No changes have occurred unless specified. Time Spent With Patient Time: Total time managing care of this patient today ____ minutes.
--- NOTE | 2025-03-05 12:14 | HO.ANESPROP2 ---
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 Anesthesia Pre-Procedure Meds Is the patient on any of the following meds?: GLP1/DPP4 PMFSH Active Problems Active Problems: All Active Problems Cricopharyngeal bar (Acute) Gastrostomy tube dysfunction (Acute) Fungal infection of skin of abdomen (Acute) Cellulitis at gastrostomy tube site (Acute) Hypervitaminosis B6 (Acute) Presence of externally removable percutaneous endoscopic gastrostomy (PEG) tube (Acute) Stroke (Acute) Occlusion of left vertebral artery (Acute) Dysphagia S/P CVA (cerebrovascular accident) (Acute) Right carpal tunnel syndrome (Acute) Polyneuropathy (Acute) Paresthesia of right upper and lower extremity (Acute) Status post insertion of hypoglossal nerve stimulator (Acute) Obstructive sleep apnea (Acute) Poor short term memory (Acute) White matter abnormality on MRI of brain (Acute) Absence seizure disorder (Acute) Past Medical History Medical History (Updated 03/05/25 @ 11:50 by Mery Mar RN) Neuropathy Obstructive sleep apnea Diabetes HLD (hyperlipidemia) HTN (hypertension) Stroke Family History Family History Father Diabetes Dementia Mother Diabetes Stroke Son Autism Surgical History Surgical History Hx of colonoscopy History of esophagogastroduodenoscopy (EGD) Social History Social History Household Members: Family Are you a primary animal care worker to a significant other at home: No Do you presently have visiting nurse or other home services: No Alcohol intake: never Patient Tobacco Use Status: Never used Tobacco Second Hand Smoke Exposure: No Use of substances other than those prescribed or required for medical reasons: No Have you been hit, kicked, punched, or otherwise hurt by someone within the past year? If so, by whom?: No Are you DNR?: No Advance Directives: No Advance Directives Information Provided: Yes Advance Directives on File: No Meds Allergies Allergy/AdvReac Type Severity Reaction Status Date / Time No Known Allergies Allergy Verified 01/15/25 10:45 Home Medications ?Medication ?Instructions ?Recorded ?Confirmed ?Last Taken ?Type dulaglutide 3 mg/0.5 mL 3 mg subcut QWEEK 10/03/23 12/11/24 Unknown History subcutaneous pen injector (Trulicity) ondansetron HCl 4 mg tablet 4 mg PO DAILY 10/03/23 12/11/24 Unknown History amlodipine 5 mg tablet 5 mg feeding tube DAILY 04/22/24 12/11/24 Unknown History aspirin 81 mg chewable tablet 81 mg feeding tube DAILY 04/22/24 12/11/24 Unknown History atorvastatin 80 mg tablet 80 mg PO BEDTIME 04/22/24 12/11/24 Unknown History clopidogrel 75 mg tablet 75 mg feeding tube DAILY 04/22/24 12/11/24 Unknown History tobramycin 0.3 % eye drops 1 drp ophthalmic-Left Q4H 05/29/24 12/11/24 Unknown History lisinopril 20 1 tab PO BID 01/15/25 Unknown History mg-hydrochlorothiazide 12.5 mg tablet Assessment and Plan Assessment Anesthesia Assessment: Chart Reviewed Documented by User: Joseline Emmanuel DO 03/05/25 12:15 HPI - Anesthesia Eval Anesthesia Pre-Procedure Meds Is the patient on any of the following meds?: GLP1/DPP4 PMFSH Past Medical History Medical History (Updated 03/05/25 @ 11:50 by Mery Mar RN) Neuropathy Obstructive sleep apnea Diabetes HLD (hyperlipidemia) HTN (hypertension) Stroke Family History Family History Father Diabetes Dementia Mother Diabetes Stroke Son Autism Family history of problems with anesthesia: No Surgical History Surgical History Hx of colonoscopy History of esophagogastroduodenoscopy (EGD) History of Problems with Anesthesia: No Social History Social History Household Members: Family Are you a primary animal care worker to a significant other at home: No Do you presently have visiting nurse or other home services: No Alcohol intake: never Patient Tobacco Use Status: Never used Tobacco Second Hand Smoke Exposure: No Use of substances other than those prescribed or required for medical reasons: No Have you been hit, kicked, punched, or otherwise hurt by someone within the past year? If so, by whom?: No Are you DNR?: No Advance Directives: No Advance Directives Information Provided: Yes Advance Directives on File: No Meds Allergies Allergy/AdvReac Type Severity Reaction Status Date / Time No Known Allergies Allergy Verified 01/15/25 10:45 Home Medications ?Medication ?Instructions ?Recorded ?Confirmed ?Last Taken ?Type dulaglutide 3 mg/0.5 mL 3 mg subcut QWEEK 10/03/23 12/11/24 Unknown History subcutaneous pen injector (Trulicity) ondansetron HCl 4 mg tablet 4 mg PO DAILY 10/03/23 12/11/24 Unknown History amlodipine 5 mg tablet 5 mg feeding tube DAILY 04/22/24 12/11/24 Unknown History aspirin 81 mg chewable tablet 81 mg feeding tube DAILY 04/22/24 12/11/24 Unknown History atorvastatin 80 mg tablet 80 mg PO BEDTIME 04/22/24 12/11/24 Unknown History clopidogrel 75 mg tablet 75 mg feeding tube DAILY 04/22/24 12/11/24 Unknown History tobramycin 0.3 % eye drops 1 drp ophthalmic-Left Q4H 05/29/24 12/11/24 Unknown History lisinopril 20 1 tab PO BID 01/15/25 Unknown History mg-hydrochlorothiazide 12.5 mg tablet Exam Exam Date and Time: 03/05/25 1214 Height,Weight and Vital Signs: Height 5 ft 8 in Weight 88.904 kg Airway Mallampati Class: II TM Dist: >3cm Neck ROM: Full Loose/Missing/Broken Teeth: No (patient denies any loose or broken teeth) Heart: S1S2 Lungs: CTAB Assessment and Plan Assessment Anesthesia Assessment: Anesthesia Plan Discussed and Chart Reviewed Final Anesthetic Review Family History of Problems with Anesthesia: No History of Problems with Anesthesia: No NPO: Yes ASA Class: III Final Preanesthetic Review: No Changes in Pt Med Stat, Meds/Allgs Chart Reviewed, Consent Obtained/Reviewed and Anes Risks/Benef Reviewed Patient Risk: Intermediate Procedure Risk: Low Anesthetic Plan Anesthetic Plan: MAC: and Agree w/ Assess. and Plan Disposition: Standard PACU
[2025-03-05] MEDS: Lactated Ringers 1,000 ML 100 ML IVCONT (12:16)
[2025-03-05 12:27] LABS: Glucose, Whole Blood 317 mg/dL (60-115)
--- NOTE | 2025-03-05 12:55 | W.PM.OPN ---
Operative Note Operative Note Date of Service: 03/05/25 Narrative: Procedure Description: EGD Indication: Removal of G tube and dysphagia Anesthesia: MAC FLEXIBLE TRANSORAL UPPER GASTROINTESTINAL ENDOSCOPY UPPER ENDOSCOPY Consent: Indications for the procedure and potential complications of bleeding, perforation, reaction to medications and missed diagnosis were discussed with the patient and informed consent was obtained. Instrument: Olympus GIF H 190 J mid size upper endoscope Monitoring: Vital signs and clinical assessment, continuous EKG monitoring, Pulse oximetry, Carbon Dioxide monitoring and blood pressure monitoring were done throughout the procedure. Procedure: The patient was placed in the left lateral decubitis position and pre-procedure medications were administered and a bite block was placed. The endoscope was inserted into the mouth and advanced under direct vision to the third part of duodenum. A careful inspection was made as the upper endoscope was withdrawn including a retroflexed examination of the proximal stomach; Findings and interventions are described below. Findings: Larynx:normal Esophagus: GE junction at 40 cm, diaphragm hiatus at 40 cm, mild esophagitis noted with schatzki ring, balloon dilation done to 20 mm at LES and UES, no tears seen - LES was lax. Stomach: patchy erythema . Biopsies were obtained. Grade 2 flap valve on retroflexed examination of the cardia. G tube internal bumper was noted. I could not pull this out. The tube was cut and the bumper was removed using a snare. Duodenum: Normal bulb and descending duodenum, Intervention: Biopsies as noted above, Impression/Findings: gastritis PLAN: Upgrade to PPI to prevent risk of aspiration and recurrence of dysphagia GERD precautions
== END 2025-03-05 14:05 | disposition home or self-care (01) ==
PROVIDERS: PCP Internal Medicine; Visit Provider Internal Medicine Gastroenterology
PROC: (CPT 43762; principal; 2025-03-05 15:30)
PROC: (CPT 43239; 2025-03-05 15:30)
DX: K94.23 Gastrostomy malfunction (principal); K22.4 Dyskinesia of esophagus; I69.391 Dysphagia following cerebral infarction; R13.12 Dysphagia, oropharyngeal phase; K22.2 Esophageal obstruction; K29.70 Gastritis, unspecified, without bleeding; K29.80 Duodenitis without bleeding
CPT/HCPCS: 43239; 43249; 43247; 82947; 88305; 88313; 88342; C1726; J2704

== ENCOUNTER → 2025-03-05 11:16 | Outpatient (BNV) | payer OTHER, SELFPAY | PROVIDERS: PCP Internal Medicine; Visit Provider Internal Medicine Gastroenterology | DX: R13.10 Dysphagia, unspecified (principal); K29.70 Gastritis, unspecified, without bleeding; Z93.1 Gastrostomy status | CPT/HCPCS: 43249; 45379 ==